=== PATIENT | male | born 1950 | race Caucasian/White ===

== ENCOUNTER 2021-02-12 19:35 | Inpatient (IN) | payer MEDICARE, OTHER, SELFPAY ==
[2021-02-12] VITALS (11 sets, daily range): BP systolic 116–147; BP diastolic 45–68; PULSE 86–97; RESP 17–30; TEMP 36.9; O2SAT 85–95
--- NOTE | ~2021-02-12 | US_ITS ---
EXAMINATION: US venous doppler UE DATE: 02/23/2021 19:46 INDICATION: Superficial venous thrombosis of the left cephalic vein TECHNIQUE: Kraft scale images with and without compression and Doppler images of the left upper extrem ity veins were obtained. COMPARISON: Ultrasound dated 02/16/2021. FINDINGS: The left internal jugular vein, subclavian vein, axillary vein, brachial veins, basilic vein, radial vein, and ulnar vein are patent. There is persistent thrombosis of the left cephalic vein. IMPRESSION: 1. Persistent thrombosis of the left cephalic vein. Reviewed, dictated and finalized at location A.
--- NOTE | ~2021-02-12 | CT_ITS ---
EXAMINATION: CTA chest PE protocol DATE: 02/12/2021 22:44 INDICATION: Shortness of breath and cough. Chest pain. TECHNIQUE: Computed tomography angiography (CTA) of the chest was performed with 100 mL Omnipaque-350 intravenous contrast timed to evaluate the pulmonary arteries. Coronal maximum intensity projection 3D-reconstructions were created by the technologist. Automated exposure control and iterative reconst ruction technique were employed. The dose-length product was 796.01 mGy-cm. COMPARISON: Chest single view 02/12/2021 FINDINGS: There are patchy groundglass opacities and great the feeding throughout the lungs bilateral ly. No pleural effusion. The heart size is normal. There are coronary artery calcifications. No peric ardial effusion. There is no pulmonary embolus. There is mild mediastinal and bilateral hilar lymphad enopathy, likely reactive. The liver demonstrates hypertrophy of left lateral segment and a nodular s urface contour, consistent with cirrhosis. There are changes of cholecystectomy. Partially visualized is at least mild splenomegaly, consistent with portal venous hypertension. There are bridging endpla te osteophytes at multiple levels in the spine, consistent with diffuse idiopathic skeletal hyperosto sis (DISH). IMPRESSION: 1. No pulmonary embolus. Sensitivity is moderately decreased peripherally by motion artifact. 2. Diffuse lung disease, consistent with pneumonia. 3. Mild mediastinal and bilateral hilar lymphadenopathy, likely reactive. 4. Cirrhosis of the liver with portal venous hypertension. Reviewed, dictated and finalized at location A. IMPRESSION: 1. No pulmonary embolus. Sensitivity is moderately decreased peripherally by mo tion artifact. 2. Diffuse lung disease, consistent with pneumonia. 3. Mild mediastinal and bilateral hilar lymphadenopathy, likely reactive. 4. Cirrhosis of the liver with portal venous hypertension.
--- NOTE | ~2021-02-12 | US_ITS ---
EXAMINATION: US venous doppler [facility] DATE: 02/16/2021 15:02 INDICATION: Shortness of breath TECHNIQUE: Kraft scale images without and with compression and Doppler images of the bilateral lower e xtremity veins were obtained. COMPARISON: None FINDINGS: The right common femoral vein, profunda femoral vein, femoral vein, popliteal vein, peroneal trunk, p osterior tibial veins, and greater saphenous vein are patent. There is superficial thrombosis of the gastrocnemius vein. The left common femoral vein, profunda femoral vein, femoral vein, popliteal vein, peroneal trunk, po sterior tibial veins, and greater saphenous vein are patent. There is superficial thrombosis of the g astrocnemius vein. IMPRESSION: 1. No evidence of deep venous thrombosis. Superficial thrombosis of the bilateral gastrocnemius veins . Reviewed, dictated and finalized at location A. IMPRESSION: 1. No evidence of deep venous thrombosis. Superficial thrombosis of the bilater al gastrocnemius veins.
--- NOTE | ~2021-02-12 | US_ITS ---
EXAMINATION:US venous doppler LE BI INDICATION:Lower extremity venous thrombosis. TECHNIQUE: Multiple grayscale, color flow and Doppler images of the right and left lower extremity de ep venous systems were obtained and reviewed. COMPARISON:Ultrasound dated 02/16/2021 FINDINGS: There is thrombosis of the right peroneal and bilateral gastrocnemius veins. The remainder of the lower extremity veins are patent. IMPRESSION: 1: Venous thrombosis of the right peroneal and bilateral gastrocnemius veins. Reviewed, dictated and finalized at location A.
--- NOTE | ~2021-02-12 | XR_ITS ---
EXAMINATION: XR chest 1V portable INDICATION: Shortness of breath, COVID pneumonia TECHNIQUE: Portable AP chest at 1555 hours COMPARISON: 02/12/2021 FINDINGS: Diffuse opacities persist throughout all lung zones with slight improvement in the upper jocelyne ng zones and slight worsening in the right midlung zone. There is no pleural effusion or pneumothorax . The heart size is normal. IMPRESSION: 1. Diffuse lung disease, consistent with pneumonia and/or pulmonary edema. Reviewed, dictated and finalized at location A.
--- NOTE | ~2021-02-12 | XR_ITS ---
EXAMINATION: XR chest 1V portable DATE: 02/19/2021 05:51 INDICATION: COVID-19 pneumonia. TECHNIQUE: A single frontal view of the chest was obtained. COMPARISON: Chest single view 02/16/2021, chest CT 02/12/2021 FINDINGS: There are patchy airspace opacities of the lungs bilaterally. No pleural effusion or pneumo thorax. The heart size is normal. IMPRESSION: 1. Worsened diffuse lung disease, consistent with COVID-19 pneumonia. Reviewed, dictated and finalized at location A.
--- NOTE | ~2021-02-12 | XR_ITS ---
EXAMINATION: XR chest 1V portable DATE: 02/12/2021 21:06 INDICATION: Generalized chest pain. COVID-19 pneumonia. TECHNIQUE: A single frontal view of the chest was obtained. COMPARISON: Chest 2 views 11/01/2012 FINDINGS: There are patchy airspace opacities in all lung zones bilaterally. No pleural effusion or p neumothorax. The heart size is normal. IMPRESSION: 1. Diffuse lung disease, consistent with COVID-19 pneumonia. Reviewed, dictated and finalized at location A.
--- NOTE | ~2021-02-12 | XR_ITS ---
EXAMINATION: XR chest 1V portable DATE: 02/20/2021 05:50 INDICATION: COVID-19 pneumonia. TECHNIQUE: A single frontal view of the chest was obtained. COMPARISON: Chest single view 02/19/2021 FINDINGS: There are patchy airspace opacities throughout the lungs bilaterally. No pleural effusion o r pneumothorax. The heart size is normal. IMPRESSION: 1. Stable diffuse lung disease, consistent with COVID-19 pneumonia. Reviewed, dictated and finalized at location A.
--- NOTE | ~2021-02-12 | US_ITS ---
EXAMINATION: US venous doppler E DATE: 02/16/2021 17:37 INDICATION: Left upper extremity swelling TECHNIQUE: Grayscale ultrasound images without and with compression and Doppler ultrasound images of the left upper extremity veins were obtained. COMPARISON: None. FINDINGS: There is thrombosis in the left cephalic vein. The left internal jugular vein, subclavian vein, axill francisca vein, brachial veins, basilic vein, radial vein, and ulnar vein are patent. IMPRESSION: 1. Thrombosis of the left cephalic vein. Reviewed, dictated and finalized at location A.
--- NOTE | 2021-02-12 19:57 | PC.NURSE ---
Pt placed on 2L portable oxygen at this time.
--- NOTE | 2021-02-12 19:58 | ECG_ITS ---
Measurements Intervals [place] Rate: 83 P: 17 TX: 251 QRS: -55 QRSD: 116 T: 79 QT: 384 QTc: 453 Interpretive Statements SINUS RHYTHM WITH FIRST DEGREE AV BLOCK LEFT ANTERIOR FASCICULAR BLOCK LEFT VENTRICULAR HYPERTROPHY AND ST-T CHANGE ABNORMAL ECG Electronically Signed On 02-12-2021 21:00:32 CDT by Hayder Shay D.O.
--- NOTE | 2021-02-12 19:59 | PC.NURSE ---
Portable O2 increased to 4L. Pt O2 saturation 93%.
--- NOTE | 2021-02-12 20:58 | ED.SOB ---
HPI - SOB/Dyspnea General Chief Complaint: Shortness of Breath/Dyspnea Stated Complaint: covid positive, sob Time Seen by Provider: 02/12/21 20:08 Source: patient Mode of arrival: ambulatory Limitations: no limitations History of Present Illness HPI Narrative: Patient is a 70-year-old male with history of hypertension, hyperlipidemia, coronary artery disease, A. fib presenting for evaluation of shortness of breath. Patient with symptoms consistent with Covid February 08, with positive test on February 10. Patient with worsening shortness of breath since that time. Patient states his daughter is a powertrain control systems engineer, checked his oxygen level at home and it was between 74 and 76%. Patient then presented to emergency department. Patient is reporting chest tightness. He is reporting dry cough. He is reporting fever and myalgias. Patient is vaccinated with the [employer] vaccine x2. Related Data Home Medications Medication Instructions Recorded Confirmed Unable to Obtain Home Medications 02/12/21 02/12/21 Allergies Allergy/AdvReac Type Severity Reaction Status Date / Time cortisone Allergy Mild Unknown Verified 02/12/21 20:01 Fahmbrp-MEX-FtU Reductase AdvReac Intermediate Other Verified 02/12/21 20:01 Inhibitor [Nbuhyoq-Drh-Fni Reductase Inhibitor] Review of Systems Review of Systems: CONSTITUTIONAL: Reports fever and chills EYES: Denies visual changes, redness, or discharge. ENT: Denies rhinorrhea, congestion, sore throat, or otalgia. CARDIOVASCULAR: Denies chest pain, palpitations, or edema. RESPIRATORY: Reports cough and shortness of breath GASTROINTESTINAL: Denies abdominal pain, nausea, vomiting, or diarrhea. GENITOURINARY: Denies dysuria or hematuria. SKIN: Denies rash or itching. MUSCULOSKELETAL: Denies back pain, joint pain, or myalgia. NEUROLOGIC: Denies headache, numbness, or weakness. [facility], [facility] Social History Social History (Updated 02/12/21 @ 21:04 by Sharlene Arriaga MD) Alcohol intake: never Substance use: never Living arrangements: with family Gender identity (if verbalized by the patient): Male Exam Narrative: GENERAL: Awake, alert, conversant, fatigued appearing HEAD: Normocephalic, atraumatic. EYES: PERRLA and EOMI. ENT: Nares clear, no rhinorrhea or epistaxis. Mucous membranes moist. NECK: Supple. CHEST: Hypoxic, tachypneic, coarse breath sounds bilaterally HEART: Regular rate, sinus rhythm ABDOMEN:Non distended, non tender EXTREMITIES: Normal range of motion. No edema. SKIN: Warm, dry, no rash. NEURO:No focal deficits. Alert and oriented x3 Course Vital Signs Vital signs: Vital Signs Temperature 36.9 C 02/12/21 19:49 Pulse Rate 86 02/12/21 19:49 Respiratory Rate 20 02/12/21 19:49 Blood Pressure 142/45 H 02/12/21 19:49 Pulse Oximetry 85 L 02/12/21 19:49 Temperature 36.9 C 02/12/21 19:49 Pulse Rate 95 02/12/21 23:03 Respiratory Rate 21 H 02/12/21 23:03 Blood Pressure 147/68 H 02/12/21 23:00 Pulse Oximetry 93 02/12/21 23:03 MDM - SOB/Dyspnea MDM Narrative Medical decision making narrative: Patient is a 70-year-old with a recent Covid diagnosis presenting for evaluation of shortness of breath. At the time of assessment, patient is ill-appearing, hypoxic, hypnic. No significant tachycardia patient was placed on 4 L via nasal cannula with improvement in oxygen saturation to 95%. This improved the pain of breathing. His laboratory results are notable for pancytopenia including thrombocytopenia which is stable from previous lab draw. Patient without signs of active bleeding, no petechiae. Patient with mild elevation in AST. 2 - troponin. CTA does not show evidence of PE. Patient was given Decadron per protocol. He does meet criteria for remdesivir. Patient admitted to hospitalist service. Differential Diagnosis Differential diagnosis: Likely congestive heart failure, community acquired pneumonia, asthma with exacerbation, p
[2021-02-12] MEDS: ASPIRIN 81 MG CHEWABLE TABLET 324 MG PO (21:23)
[2021-02-12 21:25] LABS: Eosinophils Percent Auto 0.8 % (0-4.4); Hematocrit 37.1 % (42.0-52.0); Hemoglobin 12.3 g/dL (14.0-18.0); Immature Granulocyte Absolute 0.01 K/mm3 (0.00-0.031); Immature Granulocyte Percent A 0.3 % (0-0.5); Immature Platelet Fraction Pct 10.6 % (0.9-11.2); Lymphocytes Absolute Auto 0.39 K/mm3 (0.9-3.2); Mean Corpuscular HGB Conc 33.2 g/dl (32-36); Mean Corpuscular Hemoglobin 29.4 pg (26-34); Mean Corpuscular Volume 88.8 fl (80-100); Monocytes Absolute Auto 0.2 K/mm3 (0.1-0.6); Monocytes Percent Auto 4.9 % (2.6-8.5); Neutrophils Absolute Auto 3.3 K/mm3 (1.3-6.7); Platelet Count Result 58 k/mm3 (150-375); Red Blood Count 4.18 M/mm3 (4.6-6.20); Red Cell Distribution Width 15.1 % (11.5-14.5); White Blood Count 3.9 K/mm3 (4.5-10.0)
[2021-02-12 21:34] LABS: Alanine Aminotransferase 47 U/L (4-50); Albumin Level 3.8 g/dL (3.5-5.1); Alkaline Phosphatase 181 U/L (38-126); Anion Gap 9 mmol/L (8-16); Aspartate Amino Transferase 72 U/L (17-59); Bilirubin,Total 1.3 mg/dL (0.2-1.3); Blood Urea Nitrogen 24 mg/dL (9-20); Calcium 8.8 mg/dL (8.4-10.2); Carbon Dioxide 25 mmol/L (22-30); Chloride 103 mmol/L (98-107); Estimated CRCL calculation 52 ml/min; Estimated Glomerular Filt Rate 50; Glucose 200 mg/dL (65-110); Sodium 137 mmol/L (137-145)
[2021-02-12 21:35] LABS: INR 1.1; Prothrombin Time 14.4 Seconds (11.1-14.7)
[2021-02-12 21:36] LABS: Partial Thromboplastin Time 35.5 SECONDS (22.3-36.8)
[2021-02-12 21:45] LABS: NT Pro B Type Natriuretic Pept 229 pg/mL (5-100); Troponin I < 0.012 ng/mL (0.000-0.034)
--- NOTE | 2021-02-12 22:45 | PM.IMHP ---
H&P: HPI History of Present Illness Date/Time: 02/12/21 22:45 Chief Complaint: Shortness of breath Narrative: This is a 70-year-old male with past medical history significant for dyslipidemia, patient was vaccinated against COVID earlier in the year, he came in today due to worsening shortness of breath, productive cough of copious amount of yellow brownish sputum cottage cheese appearance , nose drainage ,body aches and pains ,generalized malaise, poor appetite ,chills ,fevers, sweats ,patient tested positive for COVID-19 3 days ago this has been going on from 4-5 days ago. Upon arrival to emergency room patient was found to have low saturations in the 80s and requires supplemental oxygen by nasal cannula. Preliminary workup was significant for chest x-ray with diffuse COVID-19 pneumonia consistent infiltrates. Review of Systems Review of Systems: Body aches and pains, shortness of breath, cough ,sputum production, poor appetite, generalized malaise. Constitutional: Constitutional: Reports chills, Reports fatigue, Reports fever(s), Reports lethargy, Reports malaise, Reports poor appetite and Reports weakness Eyes: Eyes: Reports no additional eye complaints and Denies change in vision ENT: Denies dysphagia, Reports dizziness, Reports nasal congestion, Reports nasal discharge and Denies nasal obstruction Cardiovascular: Cardiovascular: Denies chest pain, Denies radiating jaw, neck or arm pain and Denies palpitations Respiratory: Respiratory: Reports change in phlegm color, Reports chest congestion, Reports cough, Reports excessive phlegm production and Reports dyspnea Gastrointestinal: Gastrointestinal: Denies abdominal pain, Denies dyspepsia, Denies nausea and Denies vomiting Genitourinary: Genitourinary: Reports no additional male genitourinary complaints Musculoskeletal: Musculoskeletal: Reports myalgias Integumentary/Breasts: Skin/Breast: Reports system reviewed and no additional complaints, except as docu Neurologic: Reports system reviewed and no additional complaints, except as documented Psychiatric: Psychiatric: Reports no additional psychiatric complaints Endocrine: Endocrine: Reports no additional endocrine complaints Hematologic/Lymphatic: Hematologic/Lymphatic: Reports no additional hematologic/lymphatic complaints Allergic/Immunologic: Allergic/Immunologic: Reports no additional allergic/immunologic complaints COUNT INCLUDES THE [facility] Social History Social History (Updated 02/12/21 @ 21:04 by Sharlene Arriaga MD) Smoking status: Never smoker Alcohol intake: never Substance use: never Living arrangements: with family Gender identity (if verbalized by the patient): Male Spiritual care concerns: No Meds Home Medications and Allergies Home Medications Medication Instructions Recorded Confirmed Type Unable to Obtain Home Medications 02/12/21 02/12/21 History Allergies Allergy/AdvReac Type Severity Reaction Status Date / Time cortisone Allergy Mild Unknown Verified 02/12/21 20:01 Ndxgtki-YUG-JbQ Reductase AdvReac Intermediate Other Verified 02/12/21 20:01 Inhibitor [Ctihevi-Ixe-Ann Reductase Inhibitor] Vital Signs Vital Signs - 24 hr 02/12/21 19:49 02/12/21 21:17 Temperature 98.5 F Pulse Rate 86 87 Respiratory Rate 20 24 H Blood Pressure 142/45 H 137/63 Pulse Oximetry 85 L 95 Exam Narrative: Patient is laying in gurney Const: General: cooperative, no acute distress, well developed, alert, awake, Physically active and ill appearing acutely Nutritional Appearance: average body habitus Orientation/consciousness: patient oriented x3 HENMT: Head: normal to inspection, normocephalic and atraumatic Ears: hearing grossly normal bilaterally General nose exam: Normal external nose present Face and sinus: normal facial exam Mouth: Yes Normal oral and palatal mucosa present Eyes: General: appearance normal, both eyes and all related structures Alignment and Position: alignme
[2021-02-12 23:33] LABS: Troponin I < 0.012 ng/mL (0.000-0.034)
[2021-02-13] VITALS (14 sets, daily range): BP systolic 104–147; BP diastolic 51–74; PULSE 74–99; RESP 12–24; TEMP 36.1–36.7; O2SAT 81–95
[2021-02-13] MEDS: REMDESIVIR 200 MG/NS 250 ML 200 MG/250 ML BAG 250 MG IVPB (00:21)
--- NOTE | 2021-02-13 00:59 | PC.NURSE ---
Pt sent to floor with Remdesivir running
--- NOTE | 2021-02-13 01:16 | ADMGEN ---
This patient, Bhanu Plaza, was admitted to [facility] Room 303-01. Patient/family oriented to hospital policies and general routines including ID bracelet, bed and alarms, visiting hours, pain management, procedures, bathroom and other care routines, personal items, smoking policy, room service/diet, and visiting hours. Information on how to activate the Rapid Response Team has been discussed. Patient/Family are encouraged to report perceived risks to care and to ask questions if they do not understand what they are told or what they should do.
[2021-02-13 04:48] LABS: INR 1.2; Prothrombin Time 15.3 Seconds (11.1-14.7)
--- NOTE | 2021-02-13 04:48 | PC.NURSE ---
Unable to obtain home med list. Patient gets medication from [place]. States daughter will have office fax over current medication in the morning. Fax number given to patient.
[2021-02-13 05:33] LABS: Troponin I < 0.012 ng/mL (0.000-0.034)
[2021-02-13 05:35] LABS: Alanine Aminotransferase 46 U/L (4-50); Estimated CRCL calculation 56 ml/min; Estimated Glomerular Filt Rate 54
[2021-02-13 07:43] LABS: INR 1.3; Prothrombin Time 15.7 Seconds (11.1-14.7)
[2021-02-13 08:01] LABS: Alanine Aminotransferase 43 U/L (4-50); Estimated CRCL calculation 61 ml/min; Estimated Glomerular Filt Rate 60
[2021-02-13 09:17] LABS: Glucose Point of Care 265 mg/dl (65-105)
[2021-02-13] MEDS: ALBUTEROL SULFATE (*SP) INHALER 2 PUFF INHALATION ×3 (11:10→20:50)
[2021-02-13] MEDS: METOPROLOL TARTRATE 50 MG TAB 100 MG PO ×2 (12:10→21:21)
[2021-02-13] MEDS: PANTOPRAZOLE 40 MG TABLET PO ×2 (12:10→18:02)
[2021-02-13] MEDS: amLODIPine BESYLATE 5 MG TABLET 10 MG PO (12:10)
[2021-02-13] MEDS: ASPIRIN 81 MG ENTERIC TABLET PO (12:11)
[2021-02-13] MEDS: GABAPENTIN 300 MG CAPSULE 600 MG PO ×2 (12:11→18:02)
[2021-02-13] MEDS: FERROUS SULFATE 324 MG TABLET PO (12:11)
[2021-02-13] MEDS: ISOSORBIDE MONONITRATE 60 MG TAB.ER.24H 120 MG PO (12:11)
[2021-02-13] MEDS: lisinopriL 20 MG TABLET 40 MG PO (12:11)
[2021-02-13] MEDS: metFORMIN HCL 500 MG TABLET 1000 MG PO ×2 (12:12→18:02)
[2021-02-13] MEDS: DULoxetine HCL 30 MG CAPSULE.DR PO (12:12)
[2021-02-13] MEDS: TUBING, BLOOD PLUM PUMP TUBING 1 EACH XX (12:13)
[2021-02-13] MEDS: INSULIN ASPART (*BKC) 100 UNITS/ML SUB-Q ×2 (12:13→18:03)
[2021-02-13 12:14] LABS: Glucose Point of Care 246 mg/dl (65-105)
[2021-02-13] MEDS: SODIUM CHLORIDE 0.9% IV 250 ML 30 ML IV CONT (12:25)
[2021-02-13 16:59] LABS: Glucose Point of Care 313 mg/dl (65-105)
--- NOTE | 2021-02-13 17:05 | PM.IMPN ---
Progress Note: A&P Assessment and Plan (1) Pneumonia due to 2019 novel coronavirus: Code(s): U07.1 - COVID-19; J12.82 - Pneumonia due to coronavirus disease 2019 Status: Acute Assessment and Plan: Continue remdesivir and dexamethasone -Unable to do lovenox due to decreased platelets -Plasma given 02/13/21 -Pt on 4L of o2, will continue o2 to keep sats >90 -continue with abx started by previous provider (2) Diabetes: Code(s): E11.9 - Type 2 diabetes mellitus without complications Status: Acute Assessment and Plan: Last glucose 313 -will do scheduled meal time insulin with SSI and start lantus -Pt takes 60u of quick acting insulin with meals as well as 40u before bed (??) per records -pt educated to not take quick acting insulin before bed and to verify his dosing with his pcp (3) Acute respiratory failure with hypoxia: Code(s): J96.01 - Acute respiratory failure with hypoxia Status: Acute Assessment and Plan: due to above -continue o2 to keep sats >90 (4) Coronary artery disease: Code(s): I25.10 - Atherosclerotic heart disease of [place] coronary artery without angina pectoris Status: Acute Assessment and Plan: No CP today -continue aspirin, lisinopril, and metoprolol (5) Hypertension: Code(s): I10 - Essential (primary) hypertension Status: Acute Assessment and Plan: Last bp 123/66 -continue amlodipine, metoprolol, imdur, and lisinopril (6) Sleep apnea: Code(s): G47.30 - Sleep apnea, unspecified Status: Acute Assessment and Plan: continue cpap (7) Pancytopenia: Code(s): D61.818 - Other pancytopenia Status: Acute Assessment and Plan: Acute on chronic, likely due to viral infx on top of cirrhosis (8) Cirrhosis: Code(s): K74.60 - Unspecified cirrhosis of liver Status: Acute Assessment and Plan: Chronic Time Spent With Patient Time with patient: 25 - 35 minutes Subjective Date/time seen: 02/13/21 17:05 Interval history: Pt is a 70-year-old male here for COVID. Patient was seen today and states his breathing is better than when he came in although he still has shortness of breath with movement. He continues to cough with phlegm production. he denies chest pain, nausea, vomiting, chills, or leg swelling. He has a decreased appetite. He states he has a hx of cirrhosis that is chronic. I reviewed his insulin dose with him and advised him to not take quick acting insulin before bed. Review of Systems Review of Systems: All systems reviewed & are unremarkable except as noted in HPI and below Exam Narrative: General: Well developed well nourished patient in NAD HEENT: normocephalic Neck: supple Neuro: Alert and oriented x4 CV:RRR Resp:Crackles to both lungs but no wheezing or ronchi. no conversational dyspnea. Abd: Soft, non distended. No pain to palpation. Positive bowel sounds Extremities: No swelling, erythema, or pain to palpation. Objective Data Vital Signs Vital Signs: Vital Signs - 24 hr 02/12/21 19:49 02/12/21 21:16 02/12/21 21:17 Temperature 98.5 F Pulse Rate 86 89 87 Respiratory Rate 20 17 24 H Blood Pressure 142/45 H 137/63 Pulse Oximetry 85 L 93 95 02/12/21 21:30 02/12/21 21:45 02/12/21 21:46 Temperature Pulse Rate 91 97 Respiratory Rate 27 H 19 Blood Pressure 129/61 116/56 L 116/56 L Pulse Oximetry 92 94 94 02/12/21 22:26 02/12/21 22:30 02/12/21 22:31 Temperature Pulse Rate 86 86 91 Respiratory Rate 24 H 19 24 H Blood Pressure 134/56 L Pulse Oximetry 94 94 93 02/12/21 23:00 02/12/21 23:03 02/13/21 00:22 Temperature Pulse Rate 91 95 86 Respiratory Rate 22 H 21 H 24 H Blood Pressure 147/68 H 147/68 H Pulse Oximetry 92 93 93 02/13/21 05:21 02/13/21 09:55 02/13/21 11:11 Temperature 97.1 F L Pulse Rate 80 88 Respiratory Rate 18 20 Bl
[2021-02-13] MEDS: INSULIN ASPART (*BKC) 100 UNITS/ML 10 UNITS SUB-Q (18:03)
[2021-02-13] MEDS: ACETAMINOPHEN 325 MG TABLET 650 MG PO (21:20)
[2021-02-13] MEDS: INSULIN GLARGINE (*BKC) 100 UNITS/ML 15 UNITS SUB-Q (21:21)
[2021-02-13] MEDS: REMDESIVIR 100 MG/NS 250 ML 100 MG/250 ML BAG 250 MG IVPB (21:35)
[2021-02-14] VITALS (15 sets, daily range): BP systolic 104–127; BP diastolic 51–67; PULSE 62–89; RESP 14–19; TEMP 36.1–36.9; O2SAT 84–98
[2021-02-14 07:08] LABS: Hemoglobin 12.2 g/dL (14.0-18.0); Immature Platelet Fraction Pct 12.2 % (0.9-11.2); Mean Corpuscular HGB Conc 33.9 g/dl (32-36); Mean Corpuscular Hemoglobin 29.2 pg (26-34); Mean Corpuscular Volume 86.1 fl (80-100); Mean Platelet Volume 12.6 fl (7.4-10.4); Platelet Count Result 97 k/mm3 (150-375); Red Blood Count 4.18 M/mm3 (4.6-6.20); Red Cell Distribution Width 14.6 % (11.5-14.5); White Blood Count 6.3 K/mm3 (4.5-10.0)
[2021-02-14 07:22] LABS: Alanine Aminotransferase 41 U/L (4-50); Albumin Level 3.8 g/dL (3.5-5.1); Alkaline Phosphatase 165 U/L (38-126); Anion Gap 15 mmol/L (8-16); Aspartate Amino Transferase 55 U/L (17-59); Bilirubin,Total 0.9 mg/dL (0.2-1.3); Blood Urea Nitrogen 38 mg/dL (9-20); CRP 6.6 mg/dL (<1.0); Calcium 8.9 mg/dL (8.4-10.2); Carbon Dioxide 19 mmol/L (22-30); Chloride 102 mmol/L (98-107); Estimated CRCL calculation 66 ml/min; Estimated Glomerular Filt Rate > 60; Glucose 223 mg/dL (65-110); Magnesium 1.7 mg/dL (1.6-2.3); Potassium 4.4 mmol/L (3.4-5.0); Sodium 136 mmol/L (137-145)
[2021-02-14 07:33] LABS: Glucose Point of Care 267 mg/dl (65-105)
[2021-02-14 07:59] LABS: INR 1.3; Prothrombin Time 16.4 Seconds (11.1-14.7)
[2021-02-14] MEDS: ALBUTEROL SULFATE (*SP) INHALER 2 PUFF INHALATION ×3 (08:11→15:38)
[2021-02-14 08:32] LABS: Glucose Point of Care 254 mg/dl (65-105)
[2021-02-14] MEDS: METOPROLOL TARTRATE 50 MG TAB 100 MG PO ×2 (09:06→20:55)
[2021-02-14] MEDS: GABAPENTIN 300 MG CAPSULE 600 MG PO ×3 (09:06→17:33)
[2021-02-14] MEDS: lisinopriL 20 MG TABLET 40 MG PO (09:06)
[2021-02-14] MEDS: FERROUS SULFATE 324 MG TABLET PO (09:07)
[2021-02-14] MEDS: amLODIPine BESYLATE 5 MG TABLET 10 MG PO (09:07)
[2021-02-14] MEDS: ISOSORBIDE MONONITRATE 60 MG TAB.ER.24H 120 MG PO (09:07)
[2021-02-14] MEDS: DULoxetine HCL 30 MG CAPSULE.DR PO (09:07)
[2021-02-14] MEDS: ASPIRIN 81 MG ENTERIC TABLET PO (09:07)
[2021-02-14] MEDS: metFORMIN HCL 500 MG TABLET 1000 MG PO ×2 (09:08→17:33)
[2021-02-14] MEDS: PANTOPRAZOLE 40 MG TABLET PO ×2 (09:08→17:37)
[2021-02-14] MEDS: INSULIN ASPART (*BKC) 100 UNITS/ML SUB-Q ×3 (09:09→17:34)
[2021-02-14] MEDS: INSULIN ASPART (*BKC) 100 UNITS/ML 10 UNITS SUB-Q ×2 (09:09→12:29)
--- NOTE | 2021-02-14 09:28 | PCOTNOTE ---
Attempted OT eval. Patient with nursing and eating breakfast. Will continue to attempt.
[2021-02-14] MEDS: ACETAMINOPHEN 325 MG TABLET 650 MG PO (11:40)
--- NOTE | 2021-02-14 12:10 | PCPTNOTE ---
On 02/14/21, the student, Edwin Andrade, provided care and completed [facility] documentation on this patient. I have reviewed the student's documentation and agree with the findings.
[2021-02-14 12:14] LABS: Glucose Point of Care 297 mg/dl (65-105)
--- NOTE | 2021-02-14 13:40 | PM.IMPN ---
Progress Note: A&P Assessment and Plan (1) Pneumonia due to 2019 novel coronavirus: Code(s): U07.1 - COVID-19; J12.82 - Pneumonia due to coronavirus disease 2019 Status: Acute Assessment and Plan: Continue remdesivir and dexamethasone -Unable to do lovenox due to decreased platelets, continue SCDs -add incentive spirometer -Plasma given 02/13/21 -Pt on 4L of o2, will continue o2 to keep sats >90. He required 10u overnight during a coughing spell but has improved -continue with abx started by previous provider -consider baricinib if pt requires any further o2 but he appears stable at this time (2) Diabetes: Code(s): E11.9 - Type 2 diabetes mellitus without complications Status: Acute Assessment and Plan: Last glucose 297 -Continue scheduled meal time insulin (will increase) with SSI and and lantus -Pt takes 60u of quick acting insulin with meals as well as 40u before bed (??) per records -pt educated to not take quick acting insulin before bed and to verify his dosing with his pcp (3) Acute respiratory failure with hypoxia: Code(s): J96.01 - Acute respiratory failure with hypoxia Status: Acute Assessment and Plan: due to above -continue o2 to keep sats >90 (4) Coronary artery disease: Code(s): I25.10 - Atherosclerotic heart disease of [place] coronary artery without angina pectoris Status: Acute Assessment and Plan: No CP today -continue aspirin, lisinopril, and metoprolol (5) Hypertension: Code(s): I10 - Essential (primary) hypertension Status: Acute Assessment and Plan: Last bp 105/59 -continue amlodipine, metoprolol, imdur, and lisinopril (6) Sleep apnea: Code(s): G47.30 - Sleep apnea, unspecified Status: Acute Assessment and Plan: continue cpap (7) Pancytopenia: Code(s): D61.818 - Other pancytopenia Status: Acute Assessment and Plan: Acute on chronic, likely due to viral infx on top of cirrhosis (8) Cirrhosis: Code(s): K74.60 - Unspecified cirrhosis of liver Status: Acute Assessment and Plan: Chronic Subjective Date/time seen: 02/14/21 13:40 Interval history: Pt is a 70-year-old male here for COVID. Patient was seen today and states his breathing is better than when he came in although he still has shortness of breath with movement and coughing. He continues to cough with phlegm production. he denies chest pain, nausea, vomiting, chills, or leg swelling. He has a decreased appetite but ate most of his lunch today. He states he has a hx of cirrhosis that is chronic. I reviewed his insulin dose with him and advised him to not take quick acting insulin before bed. Exam Narrative: General: Well developed well nourished patient in NAD HEENT: normocephalic Neck: supple Neuro: Alert and oriented x4 CV:RRR Resp:Crackles to both lungs with a very slight wheeze. no conversational dyspnea. Abd: Soft, non distended. No pain to palpation. Positive bowel sounds Extremities: No swelling, erythema, or pain to palpation. Objective Data Vital Signs Vital Signs: Vital Signs - 24 hr 02/13/21 14:40 02/13/21 15:16 02/13/21 16:14 Temperature 97.7 F 97.9 F 98.0 F Pulse Rate 82 99 87 Respiratory Rate 16 14 12 Blood Pressure 122/68 122/65 123/66 Pulse Oximetry 91 91 90 Pulse Oximetry [At Rest After Therapy Session] 02/13/21 20:55 02/13/21 21:17 02/13/21 22:00 Temperature 97.0 F L Pulse Rate 92 85 92 Respiratory Rate 22 H 22 H 20 Blood Pressure 104/74 Pulse Oximetry 81 L 90 88 L Pulse Oximetry [At Rest After Therapy Session] 02/14/21 03:30 02/14/21 06:42 02/14/21 08:03 Temperature 97 F L 97.6 F Pulse Rate 72 72 Respiratory Rate 18 14 Blood Pressure 122/56 L 127/67 Pulse Oximetry 93 98 91 Pulse Oximetry [At Rest After Therapy Session] 02/14/21 08:14 02/14/21 09:14 02/14/21 1
[2021-02-14 17:10] LABS: Glucose Point of Care 283 mg/dl (65-105)
[2021-02-14] MEDS: INSULIN ASPART (*BKC) 100 UNITS/ML 14 UNITS SUB-Q (17:34)
[2021-02-14] MEDS: INSULIN GLARGINE (*BKC) 100 UNITS/ML 15 UNITS SUB-Q (20:53)
[2021-02-14] MEDS: REMDESIVIR 100 MG/NS 250 ML 100 MG/250 ML BAG 250 MG IVPB (20:56)
[2021-02-15] VITALS (10 sets, daily range): BP systolic 110–144; BP diastolic 57–69; PULSE 52–72; RESP 12–20; TEMP 36–36.6; O2SAT 90–94
[2021-02-15 01:29] LABS: Glucose Point of Care 239 mg/dl (65-105)
[2021-02-15 06:36] LABS: Hematocrit 35.7 % (42.0-52.0); Hemoglobin 12.3 g/dL (14.0-18.0); Mean Corpuscular HGB Conc 34.5 g/dl (32-36); Mean Corpuscular Hemoglobin 29.1 pg (26-34); Mean Corpuscular Volume 84.6 fl (80-100); Mean Platelet Volume 12.3 fl (7.4-10.4); Platelet Count Result 94 k/mm3 (150-375); Red Blood Count 4.22 M/mm3 (4.6-6.20); Red Cell Distribution Width 14.8 % (11.5-14.5)
[2021-02-15 06:46] LABS: INR 1.4; Prothrombin Time 16.8 Seconds (11.1-14.7)
[2021-02-15 06:51] LABS: Alanine Aminotransferase 39 U/L (4-50); Albumin Level 3.5 g/dL (3.5-5.1); Alkaline Phosphatase 168 U/L (38-126); Anion Gap 12 mmol/L (8-16); Aspartate Amino Transferase 50 U/L (17-59); Bilirubin,Total 0.8 mg/dL (0.2-1.3); Blood Urea Nitrogen 43 mg/dL (9-20); CRP 3.9 mg/dL (<1.0); Calcium 8.8 mg/dL (8.4-10.2); Carbon Dioxide 20 mmol/L (22-30); Chloride 104 mmol/L (98-107); Estimated CRCL calculation 71 ml/min; Estimated Glomerular Filt Rate > 60; Glucose 184 mg/dL (65-110); Potassium 4.6 mmol/L (3.4-5.0); Sodium 136 mmol/L (137-145)
[2021-02-15 07:41] LABS: Glucose Point of Care 271 mg/dl (65-105)
[2021-02-15] MEDS: ALBUTEROL SULFATE (*SP) INHALER 2 PUFF INHALATION ×4 (08:36→20:19)
[2021-02-15] MEDS: GABAPENTIN 300 MG CAPSULE 600 MG PO ×3 (10:01→18:05)
[2021-02-15] MEDS: ISOSORBIDE MONONITRATE 60 MG TAB.ER.24H 120 MG PO (10:02)
[2021-02-15] MEDS: DULoxetine HCL 30 MG CAPSULE.DR PO (10:02)
[2021-02-15] MEDS: METOPROLOL TARTRATE 50 MG TAB 100 MG PO ×2 (10:02→22:35)
[2021-02-15] MEDS: metFORMIN HCL 500 MG TABLET 1000 MG PO ×2 (10:02→18:05)
[2021-02-15] MEDS: lisinopriL 20 MG TABLET 40 MG PO (10:02)
[2021-02-15] MEDS: ASPIRIN 81 MG ENTERIC TABLET PO (10:02)
[2021-02-15] MEDS: INSULIN ASPART (*BKC) 100 UNITS/ML 14 UNITS SUB-Q ×2 (10:03→13:03)
[2021-02-15] MEDS: INSULIN ASPART (*BKC) 100 UNITS/ML SUB-Q ×2 (10:03→13:03)
[2021-02-15] MEDS: amLODIPine BESYLATE 5 MG TABLET 10 MG PO (10:03)
[2021-02-15] MEDS: PANTOPRAZOLE 40 MG TABLET PO ×2 (10:03→18:05)
[2021-02-15] MEDS: FERROUS SULFATE 324 MG TABLET PO (10:03)
[2021-02-15 11:47] LABS: Glucose Point of Care 288 mg/dl (65-105)
--- NOTE | 2021-02-15 15:47 | PM.IMPN ---
Progress Note: A&P Assessment and Plan (1) Pneumonia due to 2019 novel coronavirus: Code(s): U07.1 - COVID-19; J12.82 - Pneumonia due to coronavirus disease 2019 Status: Acute Assessment and Plan: Continue remdesivir and dexamethasone -Unable to do lovenox due to decreased platelets, continue SCDs and ambulation -continue ncentive spirometer -Plasma given 02/13/21 -Pt on 4L of o2, will continue o2 to keep sats >90. He required 8L this morning during a coughing spell but has improved quickly -continue with abx started by previous provider -consider baricinib if pt requires any further o2 but he appears stable at this time (2) Diabetes: Code(s): E11.9 - Type 2 diabetes mellitus without complications Status: Acute Assessment and Plan: Last glucose 288 -Continue scheduled meal time insulin with SSI and and lantus -Pt takes 60u of quick acting insulin with meals as well as 40u before bed (??) per records -pt educated to not take quick acting insulin before bed and to verify his dosing with his pcp (3) Acute respiratory failure with hypoxia: Code(s): J96.01 - Acute respiratory failure with hypoxia Status: Acute Assessment and Plan: due to above -continue o2 to keep sats >90 (4) Coronary artery disease: Code(s): I25.10 - Atherosclerotic heart disease of [place] coronary artery without angina pectoris Status: Acute Assessment and Plan: No CP today -continue aspirin, lisinopril, and metoprolol (5) Hypertension: Code(s): I10 - Essential (primary) hypertension Status: Acute Assessment and Plan: Last bp 144/69 -continue amlodipine, metoprolol, imdur, and lisinopril (6) Sleep apnea: Code(s): G47.30 - Sleep apnea, unspecified Status: Acute Assessment and Plan: continue cpap (7) Pancytopenia: Code(s): D61.818 - Other pancytopenia Status: Acute Assessment and Plan: Acute on chronic, likely due to viral infx on top of cirrhosis (8) Cirrhosis: Code(s): K74.60 - Unspecified cirrhosis of liver Status: Acute Assessment and Plan: Chronic Subjective Date/time seen: 02/15/21 15:47 Interval history: Pt is a 70-year-old male here for COVID. patient was seen today and states he is feeling little better today. He thinks he does better every day although he does not feel great. He said he is coughing less and has a little bit more energy. He still has a decreased appetite. He denies nausea, vomiting, fevers, chills, diarrhea, or leg swelling. He says his shortness of breath is mostly with activity. He has been getting up to the commode Exam Narrative: General: Well developed well nourished patient in NAD HEENT: normocephalic Neck: supple Neuro: Alert and oriented x4 CV:RRR Resp:Crackles to both lungs with a very slight wheeze. no conversational dyspnea. Abd: Soft, non distended. No pain to palpation. Positive bowel sounds Extremities: No swelling, erythema, or pain to palpation. Objective Data Vital Signs Vital Signs: Vital Signs - 24 hr 02/14/21 17:13 02/14/21 20:00 02/14/21 20:36 Temperature 97.8 F 97.6 F Pulse Rate 72 89 89 Respiratory Rate 19 16 16 Blood Pressure 104/53 L 118/51 L Pulse Oximetry 90 90 02/14/21 21:00 02/14/21 23:10 02/15/21 00:00 Temperature 97.4 F L Pulse Rate 71 68 Respiratory Rate 20 Blood Pressure 110/58 L Pulse Oximetry 90 93 02/15/21 04:00 02/15/21 07:44 02/15/21 08:37 Temperature 97.7 F 97.7 F Pulse Rate 68 68 Respiratory Rate 18 14 Blood Pressure 130/58 L 127/60 Pulse Oximetry 92 91 90 02/15/21 10:00 02/15/21 14:36 Temperature 97.9 F Pulse Rate 67 Respiratory Rate 14 Blood Pressure 144/69 H Pulse Oximetry 90 94 Intake/Output Intake/Output: Intake & Output 02/12/21 02/13/21 02/14/21 02/15/21 23:59 23:59 23:59 23:59 Intake Total 4133 21
[2021-02-15 16:33] LABS: Glucose Point of Care 150 mg/dl (65-105)
[2021-02-15] MEDS: INSULIN ASPART (*BKC) 100 UNITS/ML 8 UNITS SUB-Q (18:05)
[2021-02-15 20:14] LABS: Glucose Point of Care 183 mg/dl (65-105)
[2021-02-15] MEDS: INSULIN GLARGINE (*BKC) 100 UNITS/ML 15 UNITS SUB-Q (22:35)
[2021-02-15] MEDS: REMDESIVIR 100 MG/NS 250 ML 100 MG/250 ML BAG 250 MG IVPB (22:35)
[2021-02-16] VITALS (10 sets, daily range): BP systolic 112–151; BP diastolic 50–59; PULSE 53–71; RESP 16–20; TEMP 35.6–36.4; O2SAT 90–96
[2021-02-16 06:38] LABS: Hematocrit 37.1 % (42.0-52.0); Hemoglobin 12.6 g/dL (14.0-18.0); Mean Corpuscular Hemoglobin 29.4 pg (26-34); Mean Corpuscular Volume 86.7 fl (80-100); Mean Platelet Volume 12.6 fl (7.4-10.4); Platelet Count Result 94 k/mm3 (150-375); Red Blood Count 4.28 M/mm3 (4.6-6.20); Red Cell Distribution Width 15.1 % (11.5-14.5)
[2021-02-16 06:43] LABS: INR 1.6; Prothrombin Time 18.4 Seconds (11.1-14.7)
[2021-02-16 06:46] LABS: Alanine Aminotransferase 42 U/L (4-50); Albumin Level 3.4 g/dL (3.5-5.1); Alkaline Phosphatase 177 U/L (38-126); Anion Gap 11 mmol/L (8-16); Aspartate Amino Transferase 51 U/L (17-59); Bilirubin,Total 0.9 mg/dL (0.2-1.3); Blood Urea Nitrogen 38 mg/dL (9-20); CRP 2.4 mg/dL (<1.0); Calcium 8.6 mg/dL (8.4-10.2); Carbon Dioxide 22 mmol/L (22-30); Chloride 103 mmol/L (98-107); Estimated CRCL calculation 71 ml/min; Estimated Glomerular Filt Rate > 60; Glucose 173 mg/dL (65-110); Potassium 4.6 mmol/L (3.4-5.0); Sodium 136 mmol/L (137-145)
[2021-02-16 08:32] LABS: D Dimer > 20.00 ug/mL (<0.48)
[2021-02-16 08:35] LABS: Glucose Point of Care 181 mg/dl (65-105)
[2021-02-16] MEDS: ALBUTEROL SULFATE (*SP) INHALER 2 PUFF INHALATION ×4 (08:56→20:15)
[2021-02-16] MEDS: lisinopriL 20 MG TABLET 40 MG PO (09:12)
[2021-02-16] MEDS: metFORMIN HCL 500 MG TABLET 1000 MG PO ×2 (09:12→17:54)
[2021-02-16] MEDS: GABAPENTIN 300 MG CAPSULE 600 MG PO ×3 (09:12→17:54)
[2021-02-16] MEDS: amLODIPine BESYLATE 5 MG TABLET 10 MG PO (09:12)
[2021-02-16] MEDS: PANTOPRAZOLE 40 MG TABLET PO ×2 (09:13→17:54)
[2021-02-16] MEDS: FERROUS SULFATE 324 MG TABLET PO (09:13)
[2021-02-16] MEDS: ISOSORBIDE MONONITRATE 60 MG TAB.ER.24H 120 MG PO (09:13)
[2021-02-16] MEDS: DULoxetine HCL 30 MG CAPSULE.DR PO (09:13)
[2021-02-16] MEDS: ASPIRIN 81 MG ENTERIC TABLET PO (09:13)
[2021-02-16] MEDS: METOPROLOL TARTRATE 50 MG TAB 100 MG PO ×2 (09:13→21:06)
[2021-02-16] MEDS: INSULIN ASPART (*BKC) 100 UNITS/ML 14 UNITS SUB-Q ×3 (09:14→17:54)
[2021-02-16 12:13] LABS: Glucose Point of Care 227 mg/dl (65-105)
[2021-02-16] MEDS: INSULIN ASPART (*BKC) 100 UNITS/ML SUB-Q (12:42)
--- NOTE | 2021-02-16 15:44 | PM.IMPN ---
Progress Note: A&P Assessment and Plan (1) Pneumonia due to 2019 novel coronavirus: Code(s): U07.1 - COVID-19; J12.82 - Pneumonia due to coronavirus disease 2019 Status: Acute Assessment and Plan: Continue remdesivir and dexamethasone - Lovenox has been started with close observation due to significant elevation in D-dimer -continue incentive spirometer -Plasma given 02/13/21 -Pt on 4L of o2, will continue o2 to keep sats >90. He required 8L during a coughing spell but has improved quickly -continue with abx started by previous provider -consider baricinib if pt requires any further o2 but he appears stable at this time (2) Diabetes: Code(s): E11.9 - Type 2 diabetes mellitus without complications Status: Acute Assessment and Plan: Last glucose 277 -Continue scheduled meal time insulin with SSI and and lantus -Pt takes 60u of quick acting insulin with meals as well as 40u before bed (??) per records -pt educated to not take quick acting insulin before bed and to verify his dosing with his pcp (3) Acute respiratory failure with hypoxia: Code(s): J96.01 - Acute respiratory failure with hypoxia Status: Acute Assessment and Plan: due to above -continue o2 to keep sats >90 (4) Coronary artery disease: Code(s): I25.10 - Atherosclerotic heart disease of [place] coronary artery without angina pectoris Status: Acute Assessment and Plan: No CP today -continue aspirin, lisinopril, and metoprolol (5) Hypertension: Code(s): I10 - Essential (primary) hypertension Status: Acute Assessment and Plan: Last bp 125/59 -continue amlodipine, metoprolol, imdur, and lisinopril (6) Sleep apnea: Code(s): G47.30 - Sleep apnea, unspecified Status: Acute Assessment and Plan: continue cpap (7) Pancytopenia: Code(s): D61.818 - Other pancytopenia Status: Acute Assessment and Plan: Acute on chronic, likely due to viral infx on top of cirrhosis (8) Cirrhosis: Code(s): K74.60 - Unspecified cirrhosis of liver Status: Acute Assessment and Plan: Chronic (9) Elevated d-dimer: Code(s): R79.89 - Other specified abnormal findings of blood chemistry Status: Acute Assessment and Plan: Noted to be significantly elevated with no signs of blood clots. -CTA and LE u/s no signs of clots -no abdominal pain noted - left arm is slightly swollen, will get ultrasound - risk and benefit discussed with patient with COVID, elevated D-dimer and low platelets and history of anemia on Brilinta. Due to his acute illness that is hypercoagulable and his stable platelet count, will do 40 mg of Lovenox with close monitoring to prevent DVTs (10) Heart block: Code(s): I45.9 - Conduction disorder, unspecified Status: Acute Assessment and Plan: occasional second-degree type 1 heart block noted on telemetry. Patient is absolutely asymptomatic with no chest pain, passing out or palpitations. Could be due to acute illness or possibly remdesivir? the Remdesivir will be complete tonight and we will see how he does in the next few days on telemetry. He is on metoprolol and if he continues to have occasional heart block, we can adjust the dose or possibly stop the metoprolol. continue to wear CPAP at night and with naps. Will monitor Subjective Date/time seen: 02/16/21 15:44 Interval history: Pt is a 70-year-old male here for COVID. patient was seen today and states he is doing okay. He has shortness of breath with movement and coughing spells but does okay at rest. He worked with physical therapy today and walked around the room a bit. They do have to turn up his oxygen to 8 L when he walks or coughs but at rest is able to tolerate 4 L. he says he is not noticed his left arm being swollen until I mentioned it. He thinks it may have
[2021-02-16 17:11] LABS: Glucose Point of Care 110 mg/dl (65-105)
[2021-02-16] MEDS: ENOXAPARIN 40 MG/0.4 ML SYRINGE SUB-Q (17:56)
[2021-02-16] MEDS: INSULIN GLARGINE (*BKC) 100 UNITS/ML 15 UNITS SUB-Q (21:06)
[2021-02-16] MEDS: REMDESIVIR 100 MG/NS 250 ML 100 MG/250 ML BAG 250 MG IVPB (21:06)
[2021-02-16 21:36] LABS: Glucose Point of Care 158 mg/dl (65-105)
[2021-02-17] VITALS (14 sets, daily range): BP systolic 105–133; BP diastolic 55–74; PULSE 53–75; RESP 15–18; TEMP 36.3–36.8; O2SAT 90–94
[2021-02-17 06:49] LABS: Basophils Percent Auto 0.4 % (0.2-1.2); Eosinophils Percent Auto 0.2 % (0-4.4); Hematocrit 36.1 % (42.0-52.0); Hemoglobin 12.4 g/dL (14.0-18.0); Immature Granulocyte Absolute 0.11 K/mm3 (0.00-0.031); Immature Granulocyte Percent A 2.1 % (0-0.5); Lymphocytes Percent Auto 7.7 % (18.3-44.2); Mean Corpuscular HGB Conc 34.3 g/dl (32-36); Mean Corpuscular Hemoglobin 28.8 pg (26-34); Mean Corpuscular Volume 83.8 fl (80-100); Mean Platelet Volume 12.3 fl (7.4-10.4); Monocytes Absolute Auto 0.3 K/mm3 (0.1-0.6); Monocytes Percent Auto 5.4 % (2.6-8.5); Neutrophils Absolute Auto 4.4 K/mm3 (1.3-6.7); Neutrophils Percent Auto 84.2 % (45.5-73.1); Platelet Count Result 82 k/mm3 (150-375); Red Blood Count 4.31 M/mm3 (4.6-6.20); Red Cell Distribution Width 14.6 % (11.5-14.5); White Blood Count 5.2 K/mm3 (4.5-10.0)
[2021-02-17 07:25] LABS: Alanine Aminotransferase 44 U/L (4-50); Albumin Level 3.1 g/dL (3.5-5.1); Alkaline Phosphatase 172 U/L (38-126); Anion Gap 8 mmol/L (8-16); Aspartate Amino Transferase 56 U/L (17-59); Blood Urea Nitrogen 39 mg/dL (9-20); Calcium 8.3 mg/dL (8.4-10.2); Carbon Dioxide 24 mmol/L (22-30); Chloride 102 mmol/L (98-107); Estimated CRCL calculation 71 ml/min; Estimated Glomerular Filt Rate > 60; Glucose 163 mg/dL (65-110); Magnesium 1.9 mg/dL (1.6-2.3); Potassium 4.4 mmol/L (3.4-5.0); Sodium 134 mmol/L (137-145)
[2021-02-17 07:38] LABS: CRP 2.2 mg/dL (<1.0)
[2021-02-17] MEDS: ALBUTEROL SULFATE (*SP) INHALER 2 PUFF INHALATION ×4 (07:58→21:06)
[2021-02-17 07:59] LABS: Glucose Point of Care 154 mg/dl (65-105)
[2021-02-17 08:43] LABS: D Dimer > 20.00 ug/mL (<0.48)
[2021-02-17] MEDS: INSULIN ASPART (*BKC) 100 UNITS/ML 14 UNITS SUB-Q ×3 (08:55→17:51)
[2021-02-17] MEDS: GABAPENTIN 300 MG CAPSULE 600 MG PO ×3 (08:56→17:50)
[2021-02-17] MEDS: DULoxetine HCL 30 MG CAPSULE.DR PO (08:56)
[2021-02-17] MEDS: PANTOPRAZOLE 40 MG TABLET PO ×2 (08:56→17:52)
[2021-02-17] MEDS: metFORMIN HCL 500 MG TABLET 1000 MG PO ×2 (08:56→17:51)
[2021-02-17] MEDS: METOPROLOL TARTRATE 50 MG TAB 100 MG PO (08:57)
[2021-02-17] MEDS: ISOSORBIDE MONONITRATE 60 MG TAB.ER.24H 120 MG PO (08:57)
[2021-02-17] MEDS: FERROUS SULFATE 324 MG TABLET PO (08:57)
[2021-02-17] MEDS: ASPIRIN 81 MG ENTERIC TABLET PO (08:57)
[2021-02-17] MEDS: ENOXAPARIN 40 MG/0.4 ML SYRINGE SUB-Q (08:58)
[2021-02-17] MEDS: lisinopriL 20 MG TABLET 40 MG PO (08:58)
[2021-02-17] MEDS: amLODIPine BESYLATE 5 MG TABLET 10 MG PO (08:58)
[2021-02-17 12:11] LABS: Glucose Point of Care 256 mg/dl (65-105)
[2021-02-17] MEDS: INSULIN ASPART (*BKC) 100 UNITS/ML SUB-Q (12:35)
--- NOTE | 2021-02-17 13:31 | PM.CNCAR ---
Assessment and Plan Assessment and plan (1) Second degree AV block, [place] type I: Code(s): I44.1 - Atrioventricular block, second degree Status: Acute Assessment and Plan: Review of telemetry strips show second-degree AV block type 1, with brief episodes of 2-1 AV block during daytime and nighttime hours. Apparently had AV block in 2019 when on high-dose beta-micki as well. Asymptomatic. Currently taking metoprolol 100 mg b.i.d. Recommend skipping metoprolol tonight and resume it tomorrow at a lower dose, 50 mg b.i.d.. Follow on telemetry. (2) Coronary artery disease: Code(s): I25.10 - Atherosclerotic heart disease of [place] coronary artery without angina pectoris Status: Acute Assessment and Plan: History of CAD and Left anterior descending stents 2019, STEMI treated with balloon angioplasty at that time as well. Occasional atypical chest pain but basically stable. Continue aspirin, statin, ezetimibe, lower dose beta micki, MARYURI-inhibitor etc.. (3) Pneumonia due to 2019 novel coronavirus: Code(s): U07.1 - COVID-19; J12.82 - Pneumonia due to coronavirus disease 2019 Status: Acute Assessment and Plan: On 4 L of O2, sometimes more, treated per guidelines with remdesivir and dexamethasone. (4) Lower extremity edema: Code(s): R60.0 - Localized edema Status: Acute Assessment and Plan: Does have some lower extremity edema and I's >> O's. Appears volume overloaded. Discussed with Mindy Kumar, agree with cautious diuresis. History of Present Illness History of Present Illness Consult date/time: 02/17/21 13:31 Reason For Visit: COVID pneumonia; Hypooxia Narrative: Date of service 02/17/2021: Mr. Bhanu Plaza is 71-year-old male whom I was asked to see at the request of ELLY Winchester for my advice and opinion regarding the second-degree AV block in consultation. He has a history of CAD, diabetes cirrhosis and sleep apnea on CPAP. The patient was admitted for COVID pneumonia and hypoxia, and he is receiving remdesivir and dexamethasone. Lovenox was started. He is on 4 L of O2 , sometimes up to 8 L high-flow nasal cannula. He was noted to have some second-degree AV block type 1 Today. He takes metoprolol 100 mg b.i.d.. 01/2019 pt admitted with to [facility] an anterior STEMI. Had some stents placed recently at the [facility]. Dr. Jasso proceed with a POBA (plain old balloon angioplasty) of the Left anterior descending which was occluded distally, at the distal margin of a stent. OM 1 had a 95% stenosis, distal circumflex had severe diffuse disease not amenable to PCI, RCA had some distal disease. Of note, during that hospitalization the patient was found to have second-degree AV block at night while sleeping, and his metoprolol was reduced to 50 mg b.i.d. Thereafter he has been followed by Dr. Cuello at the [facility] and has done well with no history of bradycardia or AV block. He does take nitroglycerin occasionally for some atypical chest discomfort, last time being about 2 weeks ago. He had 2 syncopal episodes about 5 months ago when he was being treated for anemia. Review of Systems Constitutional: Constitutional: Reports lethargy and Reports weakness Eyes: Eyes: Reports no additional eye complaints ENT: Denies epistaxis Cardiovascular: Cardiovascular: Denies chest pain, Denies pedal edema, Denies leg edema, Denies lightheadedness and Denies palpitations Respiratory: Respiratory: Reports cough, Reports dyspnea and Reports dyspnea on exertion Gastrointestinal: Gastrointestinal: Denies abdominal pain and Denies hematochezia Genitourinary: Genitourinary: Denies hematuria Musculoskeletal: Musculoskeletal: Reports no additional musculoskeletal complaints Integumentary/Breasts: Skin/Breast: Denies rash Neurologic: Denies confusion Psychiatric: Psychiatric: Denies behavioral changes [facility]
--- NOTE | 2021-02-17 14:48 | PM.IMPN ---
Progress Note: A&P Assessment and Plan (1) Pneumonia due to 2019 novel coronavirus: Code(s): U07.1 - COVID-19; J12.82 - Pneumonia due to coronavirus disease 2019 Status: Acute Assessment and Plan: continue dexamethasone. Patient has completed remdesivir. due to his bradycardia, I will not give additional Remdesivir at this time - Lovenox was started yesterday due to significant elevation in D-dimer but now he is having dark stool. This will be discontinued and will do a stool occult blood test. continue PPI -continue incentive spirometer -Plasma given 02/13/21 -Pt on 4L of o2, will continue o2 to keep sats >90. He requires much more oxygen with activity - will stop antibiotics -consider baricinib if pt requires any further o2 but he appears stable at this time (2) Diabetes: Code(s): E11.9 - Type 2 diabetes mellitus without complications Status: Acute Assessment and Plan: Last glucose 256 -Continue scheduled meal time insulin with SSI and and lantus -Pt takes 60u of quick acting insulin with meals as well as 40u before bed (??) per records -pt educated to not take quick acting insulin before bed and to verify his dosing with his pcp (3) Acute respiratory failure with hypoxia: Code(s): J96.01 - Acute respiratory failure with hypoxia Status: Acute Assessment and Plan: due to above -continue o2 to keep sats >90 (4) Coronary artery disease: Code(s): I25.10 - Atherosclerotic heart disease of [place] coronary artery without angina pectoris Status: Acute Assessment and Plan: No CP today -continue aspirin, lisinopril, and metoprolol (5) Hypertension: Code(s): I10 - Essential (primary) hypertension Status: Acute Assessment and Plan: Last bp 105/55 -continue amlodipine, metoprolol, imdur, and lisinopril (6) Sleep apnea: Code(s): G47.30 - Sleep apnea, unspecified Status: Acute Assessment and Plan: continue cpap (7) Pancytopenia: Code(s): D61.818 - Other pancytopenia Status: Acute Assessment and Plan: Platelets slightly decreased more today 82,000. He is low at baseline but had been plateauing. Likely due to cirrhosis. -monitor -lovenox stopped, see below (8) Cirrhosis: Code(s): K74.60 - Unspecified cirrhosis of liver Status: Acute Assessment and Plan: Chronic (9) Elevated d-dimer: Code(s): R79.89 - Other specified abnormal findings of blood chemistry Status: Acute Assessment and Plan: Noted to be significantly elevated with no signs of deep venous blood clots. -CTA negative for PE -no abdominal pain noted - left arm is slightly swollen, superficial blood clot noted on ultrasound - risk and benefit discussed with patient with COVID, elevated D-dimer and low platelets and history of anemia on Brilinta. Due to his acute illness that is hypercoagulable he was given Lovenox and then started having darker stool. Lovenox will be stopped and occult blood will be checked. - continue SCDs (10) Heart block: Code(s): I45.9 - Conduction disorder, unspecified Status: Acute Assessment and Plan: occasional second-degree type 1 heart block noted on telemetry. Patient is absolutely asymptomatic with no chest pain, passing out or palpitations. -cardiology was consulted and recommended decreasing metoprolol - monitor on tele Subjective Date/time seen: 02/17/21 14:48 Interval history: Pt is a 70-year-old male here for COVID. patient was seen today and states he does not feel as good as he did yesterday. He continues to have coughing spells and sinus drainage that is irritating his throat. He does not feel short of breath at rest but only feels short of breath with coughing. he has not been out of bed today. His appetite is about at 20% await usually is. He started having dark stool ov
[2021-02-17] MEDS: BENZOCAINE/MENTHOL (*BKC) 18 EA LOZENGE 1 LOZENGE PO (15:06)
[2021-02-17 16:20] LABS: Glucose Point of Care 157 mg/dl (65-105)
[2021-02-17] MEDS: FUROSEMIDE 40 MG TABLET PO (17:56)
[2021-02-17] MEDS: guaiFENesin 12 HR 600 MG TABCR PO (20:12)
[2021-02-17] MEDS: INSULIN GLARGINE (*BKC) 100 UNITS/ML 15 UNITS SUB-Q (20:13)
[2021-02-17 23:09] LABS: Glucose Point of Care 200 mg/dl (65-105)
[2021-02-18] VITALS (10 sets, daily range): BP systolic 111–145; BP diastolic 54–62; PULSE 47–101; RESP 18–24; TEMP 36.2–36.9; O2SAT 90–98
[2021-02-18 06:24] LABS: Hematocrit 37.5 % (42.0-52.0); Hemoglobin 12.9 g/dL (14.0-18.0); Mean Corpuscular HGB Conc 34.4 g/dl (32-36); Mean Corpuscular Hemoglobin 29.7 pg (26-34); Mean Corpuscular Volume 86.2 fl (80-100); Mean Platelet Volume 11.8 fl (7.4-10.4); Platelet Count Result 84 k/mm3 (150-375); Red Blood Count 4.35 M/mm3 (4.6-6.20); Red Cell Distribution Width 14.9 % (11.5-14.5); White Blood Count 6.2 K/mm3 (4.5-10.0)
[2021-02-18 06:51] LABS: Alanine Aminotransferase 51 U/L (4-50); Alkaline Phosphatase 177 U/L (38-126); Anion Gap 10 mmol/L (8-16); Aspartate Amino Transferase 54 U/L (17-59); Bilirubin,Total 0.9 mg/dL (0.2-1.3); Blood Urea Nitrogen 33 mg/dL (9-20); Calcium 8.6 mg/dL (8.4-10.2); Carbon Dioxide 24 mmol/L (22-30); Chloride 101 mmol/L (98-107); Estimated CRCL calculation 60 ml/min; Estimated Glomerular Filt Rate 59; Glucose 134 mg/dL (65-110); Potassium 4.6 mmol/L (3.4-5.0); Sodium 135 mmol/L (137-145)
[2021-02-18 08:59] LABS: Glucose Point of Care 134 mg/dl (65-105)
[2021-02-18] MEDS: ALBUTEROL SULFATE (*SP) INHALER 2 PUFF INHALATION ×4 (09:15→20:32)
[2021-02-18] MEDS: GABAPENTIN 300 MG CAPSULE 600 MG PO ×3 (09:52→18:27)
[2021-02-18] MEDS: METOPROLOL TARTRATE 50 MG TAB PO (09:52)
[2021-02-18] MEDS: ASPIRIN 81 MG ENTERIC TABLET PO (09:52)
[2021-02-18] MEDS: lisinopriL 20 MG TABLET 40 MG PO (09:52)
[2021-02-18] MEDS: guaiFENesin 12 HR 600 MG TABCR PO ×2 (09:52→20:55)
[2021-02-18] MEDS: ISOSORBIDE MONONITRATE 60 MG TAB.ER.24H 120 MG PO (09:52)
[2021-02-18] MEDS: DULoxetine HCL 30 MG CAPSULE.DR PO (09:53)
[2021-02-18] MEDS: PANTOPRAZOLE 40 MG TABLET PO ×2 (09:53→18:27)
[2021-02-18] MEDS: metFORMIN HCL 500 MG TABLET 1000 MG PO ×2 (09:53→18:27)
[2021-02-18] MEDS: amLODIPine BESYLATE 5 MG TABLET 10 MG PO (09:53)
[2021-02-18] MEDS: FERROUS SULFATE 324 MG TABLET PO (09:53)
[2021-02-18] MEDS: INSULIN ASPART (*BKC) 100 UNITS/ML 14 UNITS SUB-Q ×3 (09:54→18:28)
[2021-02-18] MEDS: BENZOCAINE/MENTHOL (*BKC) 18 EA LOZENGE 1 LOZENGE PO (09:55)
[2021-02-18 12:22] LABS: Glucose Point of Care 209 mg/dl (65-105)
--- NOTE | 2021-02-18 12:32 | PM.IMPN ---
Progress Note: A&P Assessment and Plan (1) Pneumonia due to 2019 novel coronavirus: Code(s): U07.1 - COVID-19; J12.82 - Pneumonia due to coronavirus disease 2019 Status: Acute Assessment and Plan: Patient diagnosed with COVID on 02/10 but results not available. Plasma given 02/13/21. He has completed 5 days of remdesivir; this was not extended due to his bradycardia. He remains on Decadron. He also remains on albuterol HFA and Mucinex. Oxygen requirements have worsened since yesterday. D-dimer is greater than 20 but CRP is only 2.2 yesterday. Concern patient will continue to worsen. Despite not having AA verify diagnosis, we will start the baricinib today. Risks and benefits were discussed at length with the patient and he is agreeable. I have requested a copy of the COVID results to verify this diagnosis. Hgb stable and plt count low but chronic so will resume Arixtra. Abx have been stopped. Wean O2 as toelrated. Encouraged IS use. Encouraged lying prone as much as possible (2) Acute respiratory failure with hypoxia: Code(s): J96.01 - Acute respiratory failure with hypoxia Status: Acute Assessment and Plan: Related to above. Wean oxygen as tolerated (3) Diabetes: Code(s): E11.9 - Type 2 diabetes mellitus without complications Status: Acute Assessment and Plan: The patient's blood glucose was reviewed on 02/18 Glucose remains reasonably well controlled. Glucose this morning 134 so no change in Lantus. Continue AccuCheks covering with sliding scale. Hypoglycemia protocol available as needed. Continue current medications. (4) Coronary artery disease: Code(s): I25.10 - Atherosclerotic heart disease of [place] coronary artery without angina pectoris Status: Acute Assessment and Plan: Stable. Continue aspirin, lisinopril, and metoprolol. Patient allergic to statin therapy. (5) Hypertension: Code(s): I10 - Essential (primary) hypertension Status: Acute Assessment and Plan: Patient's blood pressure was reviewed on 02/18 Blood pressure remains well controlled. Will continue current medications with amlodipine, metoprolol, imdur, and lisinopril (6) Sleep apnea: Code(s): G47.30 - Sleep apnea, unspecified Status: Acute Assessment and Plan: Patient refusing CPAP. Encourage PAP therapy. (7) Pancytopenia: Code(s): D61.818 - Other pancytopenia Status: Acute Assessment and Plan: WBC was 2300 on admisison but this has resolved. probably related to the viral illness. Hgb 12.7 and has been stable since admission. [place] probably more chronic finding. Follow Platelet count was 56K on admission but improved to the 80-90K range. He states this is chronic and felt related to his cirrhosis. (8) Cirrhosis: Code(s): K74.60 - Unspecified cirrhosis of liver Status: Acute Assessment and Plan: CT notes cirrhosis. INR has climbed to 1.6. Liver enzymes only mildly elevated at times. Tbili normal. Albumin was normal on admisison. Follow. (9) Elevated d-dimer: Code(s): R79.89 - Other specified abnormal findings of blood chemistry Status: Acute Assessment and Plan: Noted to be significantly elevated. [place] related to COVID. CTA chest was negative for PE. LE venous doppler negative for DVT but does show superficial thrombosis of the bilateral gastrocnemius veins. Left hand was slightly swollen but LUE doppler negative for DVT but did show superficial thrombosis of the left cephalic vein. Will use Arixtra and follow HH, plt. (10) Heart block: Code(s): I45.9 - Conduction disorder, unspecified Status: Acute Assessment and Plan: Tele showing occasional second-degree type 1 heart block noted on telemetry. Patient is asymptomatic from this. Could be partially related to the Remdesivir. Cardiology was consulted and recommended decreasin
[2021-02-18] MEDS: INSULIN ASPART (*BKC) 100 UNITS/ML SUB-Q (12:40)
--- NOTE | 2021-02-18 14:41 | PHAR ---
DR KLINE IS AWARE OF PLATELET COUNT 84,000. CONTINUE WITH FONDAPARINUX.
--- NOTE | 2021-02-18 16:20 | PM.PNCARD ---
Progress Note: A&P Assessment and Plan (1) Second degree AV block, Mobitz type I: Code(s): I44.1 - Atrioventricular block, second degree Status: Acute Assessment and Plan: Still w/ episodes of 2nd degree AV block type 1, after skipping a dose of metoprolol and reducing to 50 mg b.i.d.. Will hold until AV block improves, then resume at a lower dose. Watch for rebound sinus tachycardia or angina Follow on telemetry. (2) Coronary artery disease: Code(s): I25.10 - Atherosclerotic heart disease of [place] coronary artery without angina pectoris Status: Acute Assessment and Plan: History of CAD and Left anterior descending stents 2019, STEMI treated with balloon angioplasty at that time as well. Occasional atypical chest pain but basically stable. Continue aspirin, statin, ezetimibe, MARYURI-inhibitor etc.. (3) Pneumonia due to 2019 novel coronavirus: Code(s): U07.1 - COVID-19; J12.82 - Pneumonia due to coronavirus disease 2018 Status: Acute Assessment and Plan: On 4 L- 8 L of O2, sometimes more, treated per guidelines with dexamethasone and now baricitinib (Olumiant) (4) Lower extremity edema: Code(s): R60.0 - Localized edema Status: Acute Assessment and Plan: Appears volume overloaded. Check a ProBNP in a.m Subjective Date/time seen: 02/18/21 16:20 Interval history: Follow-up for second-degree AV block type 1, in the setting of pneumonia due to COVID-19. Also: CAD with an anterior STEMI in January 2019 status post angioplasty of the Left anterior descending, Date of service 02/18/2021: Yesterday I held 1 dose of metoprolol then reduced the dose from 100 mg b.i.d. to: 50 mg b.i.d. Received 1 dose of Lasix yesterday p.o. for edema. Tele shos pt still having episodes of 2nd AV block type 1, HR 50's. Still occ SOB w/ paroxysms of coughing. Will start baricinib due to worsening O2 requirements ; needing a L high-flow nasal oxygen more frequently. Review of Systems Constitutional: Constitutional: Reports fatigue Eyes: Eyes: Reports no additional eye complaints ENT: Denies nasal congestion Cardiovascular: Cardiovascular: Denies chest pain, Reports pedal edema, Reports leg edema and Denies lightheadedness Comments: edema a little better after Lasix Respiratory: Respiratory: Reports cough, Reports dyspnea and Reports dyspnea on exertion Gastrointestinal: Gastrointestinal: Denies abdominal pain Genitourinary: Genitourinary: Denies dysuria Musculoskeletal: Musculoskeletal: Denies back pain Integumentary/Breasts: Skin/Breast: Denies rash Neurologic: Denies confusion Psychiatric: Psychiatric: Reports no additional psychiatric complaints Exam Const: General: no acute distress and uncomfortable HENMT: General nose exam: no epistaxis Eyes: EOM: EOMs intact bilaterally Neck: Neck: supple Resp: Auscultation: diminished lung sounds Cardio: Rate: regular rate Rhythm: regular rhythm Other: distant heart sounds GI: GI Palp: Yes Soft to palpation and No Tenderness to palpation present (GI) Skin: General skin exam: no rashes or lesions noted Neuro: Cognition (Neuro): normal cognition Speech: normal speech Extrem: General: edema Other: LE edema better, UE edema present Psych: Affect: normal affect Objective Data Vital Signs Vital Signs: Vital Signs - 24 hr 02/17/21 20:00 02/17/21 21:07 02/17/21 21:08 Temperature 97.3 F L Pulse Rate 62 66 66 Respiratory Rate 18 Blood Pressure 128/74 Pulse Oximetry 93 93 02/17/21 23:33 02/18/21 00:00 02/18/21 04:00 Temperature 97.5 F L 97.6 F Pulse Rate 62 59 L 77 Respiratory Rate 18 20 Blood Pressure 122/68 145/62 H Pulse Oximetry 93 92 02/18/21 08:00 02/18/21 09:15 02/18/21 09:52 Temperature 97.1 F L Pulse Rate 82 70 Respiratory Rate 24 H Blood Pressure 111/55 L Pulse Oximetry 98 93 90 02/18/21 12:00 Temperature 98.1 F Pulse Rate
[2021-02-18 16:59] LABS: Glucose Point of Care 182 mg/dl (65-105)
[2021-02-18 17:51] LABS: Basophils Percent Auto 0.4 % (0.2-1.2); Eosinophils Percent Auto 0.3 % (0-4.4); Hematocrit 40.9 % (42.0-52.0); Hemoglobin 13.8 g/dL (14.0-18.0); Immature Granulocyte Absolute 0.15 K/mm3 (0.00-0.031); Immature Granulocyte Percent A 1.9 % (0-0.5); Immature Platelet Fraction Pct 10.8 % (0.9-11.2); Lymphocytes Absolute Auto 0.33 K/mm3 (0.9-3.2); Lymphocytes Percent Auto 4.3 % (18.3-44.2); Mean Corpuscular HGB Conc 33.7 g/dl (32-36); Mean Corpuscular Hemoglobin 29.4 pg (26-34); Mean Platelet Volume 11.9 fl (7.4-10.4); Monocytes Absolute Auto 0.3 K/mm3 (0.1-0.6); Monocytes Percent Auto 3.9 % (2.6-8.5); Neutrophils Absolute Auto 6.9 K/mm3 (1.3-6.7); Neutrophils Percent Auto 89.2 % (45.5-73.1); Platelet Count Result 109 k/mm3 (150-375); Red Cell Distribution Width 15.3 % (11.5-14.5); White Blood Count 7.7 K/mm3 (4.5-10.0)
[2021-02-18] MEDS: FONDAPARINUX SODIUM 2.5 MG/0.5 ML SYRINGE SUB-Q (18:27)
[2021-02-18] MEDS: BARICITINIB 2 MG TABLET 4 MG PO (18:30)
[2021-02-18] MEDS: INSULIN GLARGINE (*BKC) 100 UNITS/ML 15 UNITS SUB-Q (20:58)
[2021-02-18 21:14] LABS: IFOB Positive Control Positive; Immunochemical Fecal Occult Bl Positive (N)
[2021-02-19] VITALS (13 sets, daily range): BP systolic 103–131; BP diastolic 54–70; PULSE 57–102; RESP 14–24; TEMP 36.2–36.8; O2SAT 90–98
[2021-02-19 06:38] LABS: Basophils Percent Auto 0.4 % (0.2-1.2); Eosinophils Percent Auto 0.6 % (0-4.4); Hematocrit 36.7 % (42.0-52.0); Hemoglobin 12.8 g/dL (14.0-18.0); Lymphocytes Percent Auto 9.9 % (18.3-44.2); Mean Corpuscular HGB Conc 34.9 g/dl (32-36); Mean Corpuscular Hemoglobin 29.2 pg (26-34); Mean Corpuscular Volume 83.8 fl (80-100); Monocytes Absolute Auto 0.2 K/mm3 (0.1-0.6); Monocytes Percent Auto 3.6 % (2.6-8.5); Neutrophils Absolute Auto 4.2 K/mm3 (1.3-6.7); Neutrophils Percent Auto 83.5 % (45.5-73.1); Platelet Count Result 105 k/mm3 (150-375); Red Blood Count 4.38 M/mm3 (4.6-6.20); White Blood Count 5.1 K/mm3 (4.5-10.0)
[2021-02-19 06:52] LABS: Alanine Aminotransferase 51 U/L (4-50); Alkaline Phosphatase 169 U/L (38-126); Anion Gap 6 mmol/L (8-16); Aspartate Amino Transferase 52 U/L (17-59); Bilirubin,Total 1.1 mg/dL (0.2-1.3); Blood Urea Nitrogen 35 mg/dL (9-20); Calcium 8.4 mg/dL (8.4-10.2); Carbon Dioxide 26 mmol/L (22-30); Chloride 101 mmol/L (98-107); Estimated CRCL calculation 65 ml/min; Estimated Glomerular Filt Rate > 60; Glucose 123 mg/dL (65-110); Magnesium 1.6 mg/dL (1.6-2.3); Phosphorus 3.7 mg/dL (2.5-4.5); Potassium 4.7 mmol/L (3.4-5.0); Sodium 133 mmol/L (137-145)
[2021-02-19 07:43] LABS: Glucose Point of Care 157 mg/dl (65-105)
[2021-02-19] MEDS: ALBUTEROL SULFATE (*SP) INHALER 2 PUFF INHALATION ×4 (07:56→21:25)
[2021-02-19] MEDS: MAGNESIUM SULF 2 GM/WATER 50ML 2 GM/50 ML BAG IVPB (08:25)
[2021-02-19] MEDS: INSULIN ASPART (*BKC) 100 UNITS/ML 14 UNITS SUB-Q ×3 (08:29→17:34)
[2021-02-19] MEDS: GABAPENTIN 300 MG CAPSULE 600 MG PO ×3 (08:30→17:34)
[2021-02-19] MEDS: ISOSORBIDE MONONITRATE 60 MG TAB.ER.24H 120 MG PO (08:31)
[2021-02-19] MEDS: FERROUS SULFATE 324 MG TABLET PO (08:31)
[2021-02-19] MEDS: metFORMIN HCL 500 MG TABLET 1000 MG PO ×2 (08:31→17:35)
[2021-02-19] MEDS: DULoxetine HCL 30 MG CAPSULE.DR PO (08:31)
[2021-02-19] MEDS: PANTOPRAZOLE 40 MG TABLET PO ×2 (08:32→17:35)
[2021-02-19] MEDS: amLODIPine BESYLATE 5 MG TABLET 10 MG PO (08:32)
[2021-02-19] MEDS: ASPIRIN 81 MG ENTERIC TABLET PO (08:32)
[2021-02-19] MEDS: lisinopriL 20 MG TABLET 40 MG PO (08:32)
[2021-02-19] MEDS: guaiFENesin 12 HR 600 MG TABCR PO ×2 (08:32→21:14)
[2021-02-19] MEDS: BARICITINIB 2 MG TABLET 4 MG PO (08:33)
[2021-02-19] MEDS: BENZOCAINE/MENTHOL (*BKC) 18 EA LOZENGE 1 LOZENGE PO (08:49)
[2021-02-19 11:57] LABS: Glucose Point of Care 249 mg/dl (65-105)
[2021-02-19] MEDS: ARTIFICIAL TEARS OPHTH SOLN 15 ML BOTTLE 1 DROP EACH EYE (12:01)
[2021-02-19] MEDS: INSULIN ASPART (*BKC) 100 UNITS/ML SUB-Q (12:03)
--- NOTE | 2021-02-19 12:29 | PCNWS ---
Weekly nutritional screen. Patient is tolerating current diet with adequate intake. No nutritional needs at this time.
--- NOTE | 2021-02-19 12:40 | PM.IMPN ---
Progress Note: A&P Assessment and Plan (1) Pneumonia due to 2019 novel coronavirus: Code(s): U07.1 - COVID-19; J12.82 - Pneumonia due to coronavirus disease 2019 Status: Acute Assessment and Plan: Patient diagnosed with COVID on 02/10 and results on the chart. Plasma given 02/13/21. He has completed 5 days of remdesivir; this was not extended due to his bradycardia. He remains on Decadron and Baricinib added 02/18 for worsening hypoxia. He also remains on albuterol HFA and Mucinex. D-dimer is greater than 20 but CRP is only 2.2. Wean O2 as tolerated. Encouraged IS use. Encouraged lying prone as much as possible. Move to IMU since this jorge probably continue to worsen. (2) Acute respiratory failure with hypoxia: Code(s): J96.01 - Acute respiratory failure with hypoxia Status: Acute Assessment and Plan: Related to above. Wean oxygen as tolerated (3) Diabetes: Code(s): E11.9 - Type 2 diabetes mellitus without complications Status: Acute Assessment and Plan: The patient's blood glucose was reviewed on 02/19 Glucose remains reasonably well controlled. Glucose this morning 128 so no change in Lantus. Continue AccuCheks covering with sliding scale. Hypoglycemia protocol available as needed. Continue current medications. (4) Coronary artery disease: Code(s): I25.10 - Atherosclerotic heart disease of [place] coronary artery without angina pectoris Status: Acute Assessment and Plan: Stable. Continue aspirin and lisinopril. Metoprolol on hold. Patient allergic to statin therapy (although crestor listed on home med list?). (5) Hypertension: Code(s): I10 - Essential (primary) hypertension Status: Acute Assessment and Plan: Patient's blood pressure was reviewed on 02/19 Blood pressure remains well controlled. Will continue current medications with amlodipine, Imdur, and lisinopril. Metoprolol on hold now. (6) Sleep apnea: Code(s): G47.30 - Sleep apnea, unspecified Status: Acute Assessment and Plan: Patient refusing CPAP. Encourage PAP therapy. (7) Pancytopenia: Code(s): D61.818 - Other pancytopenia Status: Acute Assessment and Plan: WBC was 2300 on admisison but this has resolved. Probably related to the viral illness. Hgb 12.7 and has been stable since admission. [place] probably more chronic finding. Follow Platelet count was 56K on admission but improved to the 105K range. He states this is chronic and felt related to his cirrhosis. (8) Cirrhosis: Code(s): K74.60 - Unspecified cirrhosis of liver Status: Acute Assessment and Plan: CT notes cirrhosis. INR has climbed to 1.6. Liver enzymes only mildly elevated at times. Tbili normal. Albumin was normal on admission. Follow. (9) Elevated d-dimer: Code(s): R79.89 - Other specified abnormal findings of blood chemistry Status: Acute Assessment and Plan: Noted to be significantly elevated. [place] related to COVID. CTA chest was negative for PE. LE venous doppler negative for DVT but does show superficial thrombosis of the bilateral gastrocnemius veins. Left hand was slightly swollen but LUE doppler negative for DVT but did show superficial thrombosis of the left cephalic vein. Arixtra started but now has guaiac positive stools (ordered due to complaints of 'dark' stools) but patient having epistaxis which could provide a false positive test. Hgb stable. Benefits of anticoagulation outweighs the risk so will resume Aritra. (10) Heart block: Code(s): I45.9 - Conduction disorder, unspecified Status: Acute Assessment and Plan: Tele showing occasional second-degree AVB type 1. Patient is asymptomatic from this. Could be partially related to the Remdesivir but this has been stopped now. Cardiology was consulted and recommended decreasing metoprolol which was done (100mg Q12h
[2021-02-19 12:52] LABS: Glucose Point of Care 128 mg/dl (65-105)
[2021-02-19] MEDS: FONDAPARINUX SODIUM 2.5 MG/0.5 ML SYRINGE SUB-Q (13:38)
[2021-02-19] MEDS: FUROSEMIDE INJ 40 MG/4 ML VIAL IV PUSH (13:38)
--- NOTE | 2021-02-19 14:49 | PC.NURSE ---
This patient, Bhanu Plaza, was transferred to IMU room 202 on 02/19/21 at 1340. Personal belongings sent with patient. Report given to PRIMO Contreras. Appropriate documentation sent with patient.
--- NOTE | 2021-02-19 15:13 | PC.NURSE ---
This patient, Bhanu Plaza, was received from [[phone] ] on 02/19/21 at 1340. Report received from PRIMO Avendano @ [phone] Patient/family oriented to unit policies and routines
[2021-02-19 17:40] LABS: Glucose Point of Care 188 mg/dl (65-105)
[2021-02-19] MEDS: INSULIN GLARGINE (*BKC) 100 UNITS/ML 15 UNITS SUB-Q (21:14)
[2021-02-19 22:19] LABS: Glucose Point of Care 213 mg/dl (65-105)
[2021-02-20] VITALS (16 sets, daily range): BP systolic 91–122; BP diastolic 50–71; PULSE 53–95; RESP 18–24; TEMP 36.6–37; O2SAT 94–100
[2021-02-20 04:59] LABS: Basophils Percent Auto 0.6 % (0.2-1.2); Eosinophils Percent Auto 0.6 % (0-4.4); Hemoglobin 12.1 g/dL (14.0-18.0); Immature Granulocyte Absolute 0.16 K/mm3 (0.00-0.031); Immature Granulocyte Percent A 3.3 % (0-0.5); Lymphocytes Absolute Auto 0.49 K/mm3 (0.9-3.2); Lymphocytes Percent Auto 10.1 % (18.3-44.2); Mean Corpuscular HGB Conc 33.6 g/dl (32-36); Mean Corpuscular Hemoglobin 28.4 pg (26-34); Mean Corpuscular Volume 84.5 fl (80-100); Mean Platelet Volume 12.3 fl (7.4-10.4); Monocytes Absolute Auto 0.3 K/mm3 (0.1-0.6); Monocytes Percent Auto 5.6 % (2.6-8.5); Neutrophils Absolute Auto 3.9 K/mm3 (1.3-6.7); Neutrophils Percent Auto 79.8 % (45.5-73.1); Platelet Count Result 93 k/mm3 (150-375); Red Blood Count 4.26 M/mm3 (4.6-6.20); Red Cell Distribution Width 14.9 % (11.5-14.5); White Blood Count 4.8 K/mm3 (4.5-10.0)
[2021-02-20 05:23] LABS: Alanine Aminotransferase 51 U/L (4-50); Albumin Level 2.9 g/dL (3.5-5.1); Alkaline Phosphatase 170 U/L (38-126); Anion Gap 8 mmol/L (8-16); Aspartate Amino Transferase 45 U/L (17-59); Bilirubin,Total 1.2 mg/dL (0.2-1.3); Blood Urea Nitrogen 36 mg/dL (9-20); CRP 1.6 mg/dL (<1.0); Calcium 8.5 mg/dL (8.4-10.2); Carbon Dioxide 25 mmol/L (22-30); Chloride 99 mmol/L (98-107); Estimated CRCL calculation 60 ml/min; Estimated Glomerular Filt Rate 59; Glucose 188 mg/dL (65-110); Magnesium 1.9 mg/dL (1.6-2.3); Potassium 4.6 mmol/L (3.4-5.0); Sodium 132 mmol/L (137-145)
[2021-02-20 05:27] LABS: D Dimer 9.43 ug/mL (<0.48)
[2021-02-20] MEDS: ALBUTEROL SULFATE (*SP) INHALER 2 PUFF INHALATION ×3 (08:20→16:40)
[2021-02-20 08:53] LABS: Glucose Point of Care 172 mg/dl (65-105)
[2021-02-20] MEDS: INSULIN ASPART (*BKC) 100 UNITS/ML 14 UNITS SUB-Q ×3 (09:06→17:03)
[2021-02-20] MEDS: lisinopriL 20 MG TABLET 40 MG PO (09:08)
[2021-02-20] MEDS: SODIUM CHLORIDE NASAL GEL 14.1 GM 1 APPLIC NASAL (09:08)
[2021-02-20] MEDS: GABAPENTIN 300 MG CAPSULE 600 MG PO ×3 (09:10→17:04)
[2021-02-20] MEDS: metFORMIN HCL 500 MG TABLET 1000 MG PO ×2 (09:11→17:05)
[2021-02-20] MEDS: guaiFENesin 12 HR 600 MG TABCR PO ×2 (09:11→21:29)
[2021-02-20] MEDS: ISOSORBIDE MONONITRATE 60 MG TAB.ER.24H 120 MG PO (09:11)
[2021-02-20] MEDS: DULoxetine HCL 30 MG CAPSULE.DR PO (09:12)
[2021-02-20] MEDS: BARICITINIB 2 MG TABLET 4 MG PO (09:12)
[2021-02-20] MEDS: amLODIPine BESYLATE 5 MG TABLET 10 MG PO (09:12)
[2021-02-20] MEDS: FERROUS SULFATE 324 MG TABLET PO (09:12)
[2021-02-20] MEDS: ASPIRIN 81 MG ENTERIC TABLET PO (09:12)
[2021-02-20] MEDS: PANTOPRAZOLE 40 MG TABLET PO ×2 (09:12→17:05)
[2021-02-20] MEDS: FONDAPARINUX SODIUM 2.5 MG/0.5 ML SYRINGE SUB-Q (09:14)
[2021-02-20] MEDS: METOPROLOL TARTRATE 25 MG TABLET PO (09:25)
[2021-02-20] MEDS: ACETAMINOPHEN 325 MG TABLET 650 MG PO (09:30)
[2021-02-20 12:22] LABS: Glucose Point of Care 197 mg/dl (65-105)
--- NOTE | 2021-02-20 14:40 | PCPTNOTE ---
Patient transferred from [facility] to IMU due to change in medical status. Will resume PT when medically able.
--- NOTE | 2021-02-20 15:41 | PM.IMPN ---
Progress Note: A&P Assessment and Plan (1) Pneumonia due to 2019 novel coronavirus: Code(s): U07.1 - COVID-19; J12.82 - Pneumonia due to coronavirus disease 2019 Status: Acute Assessment and Plan: Patient diagnosed with COVID on 02/10 and results on the chart. Plasma given 02/13/21. He has completed 5 days of remdesivir; this was not extended due to his bradycardia. He remains on Decadron with Baricinib added 02/18 for worsening hypoxia. He also remains on albuterol HFA and Mucinex. D-dimer was greater than 20 but trending down now; CRP is better at 1.6. O2 weaned to 6L HFNC now. Wean O2 as tolerated. Encouraged IS use. Encouraged lying prone as much as possible. (2) Acute respiratory failure with hypoxia: Code(s): J96.01 - Acute respiratory failure with hypoxia Status: Acute Assessment and Plan: Related to above. Wean oxygen as tolerated (3) Diabetes: Code(s): E11.9 - Type 2 diabetes mellitus without complications Status: Acute Assessment and Plan: The patient's blood glucose was reviewed on 02/20 Glucose remains reasonably well controlled. Glucose this morning 188 so no change in Lantus. Continue AccuCheks covering with sliding scale. Hypoglycemia protocol available as needed. Continue current medications. (4) Coronary artery disease: Code(s): I25.10 - Atherosclerotic heart disease of [place] coronary artery without angina pectoris Status: Acute Assessment and Plan: Stable. Continue aspirin and lisinopril. Metoprolol resumed at lower dose. Patient allergic to statin therapy (although crestor listed on home med list?). He states the Cardiolgist has him on a 'small' dose of Crestor but the dose is listed as 20mg so will clarify this with his pharmacy befo[facility] starting. (5) Hypertension: Code(s): I10 - Essential (primary) hypertension Status: Acute Assessment and Plan: Patient's blood pressure was reviewed on 02/19 Blood pressure remains well controlled. Will continue current medications with amlodipine, Imdur, and lisinopril. Metoprolol resumed this morning at lower dose (6) Sleep apnea: Code(s): G47.30 - Sleep apnea, unspecified Status: Acute Assessment and Plan: Patient refusing CPAP. Encourage PAP therapy. (7) Pancytopenia: Code(s): D61.818 - Other pancytopenia Status: Acute Assessment and Plan: WBC was 2300 on admisison but this has resolved. Probably related to the viral illness. Hgb 12.7 and has been stable since admission. [place] probably more chronic finding. Follow Platelet count was 56K on admission but improved to the 105K range before trending down. He states this is chronic and felt related to his cirrhosis. Follow on Arixtra (8) Cirrhosis: Code(s): K74.60 - Unspecified cirrhosis of liver Status: Acute Assessment and Plan: CT notes cirrhosis. INR has climbed to 1.6. Liver enzymes only mildly elevated at times. Tbili normal. Albumin was normal on admission. Follow. (9) Elevated d-dimer: Code(s): R79.89 - Other specified abnormal findings of blood chemistry Status: Acute Assessment and Plan: DDimer was significantly elevated. [place] related to COVID. CTA chest was negative for PE. LE venous doppler negative for DVT but does show superficial thrombosis of the bilateral gastrocnemius veins. Left hand was slightly swollen but LUE doppler negative for DVT but did show superficial thrombosis of the left cephalic vein. Katie had one dark stool and was found to have guaiac positive stools but patient having epistaxis which could provide a false positive test. Benefits of anticoagulation outweighs the risk so we started Aritra. Hgb remining stable. Follow closely (10) Heart block: Code(s): I45.9 - Conduction disorder, unspecified Status: Acute Assessment and Plan: Tele showing occasional second-de
[2021-02-20] MEDS: INSULIN ASPART (*BKC) 100 UNITS/ML SUB-Q (17:03)
[2021-02-20] MEDS: MAGNESIUM OXIDE 400 MG TABLET PO (17:04)
[2021-02-20 17:11] LABS: Glucose Point of Care 279 mg/dl (65-105)
[2021-02-20] MEDS: INSULIN GLARGINE (*BKC) 100 UNITS/ML 15 UNITS SUB-Q (21:29)
[2021-02-20 21:38] LABS: Glucose Point of Care 227 mg/dl (65-105)
[2021-02-21] VITALS (15 sets, daily range): BP systolic 105–119; BP diastolic 51–72; PULSE 49–119; RESP 17–22; TEMP 36.5–37.1; O2SAT 91–99
--- NOTE | 2021-02-21 05:36 | PCRCNOTE ---
Window of time for administration has passed. See next scheduled administration.
[2021-02-21 05:48] LABS: Basophils Percent Auto 0.3 % (0.2-1.2); Eosinophils Percent Auto 0.3 % (0-4.4); Hematocrit 40.9 % (42.0-52.0); Hemoglobin 13.7 g/dL (14.0-18.0); Immature Granulocyte Absolute 0.11 K/mm3 (0.00-0.031); Immature Granulocyte Percent A 1.9 % (0-0.5); Lymphocytes Absolute Auto 0.46 K/mm3 (0.9-3.2); Lymphocytes Percent Auto 7.9 % (18.3-44.2); Mean Corpuscular HGB Conc 33.5 g/dl (32-36); Mean Corpuscular Hemoglobin 29.6 pg (26-34); Mean Corpuscular Volume 88.3 fl (80-100); Mean Platelet Volume 12.4 fl (7.4-10.4); Monocytes Absolute Auto 0.3 K/mm3 (0.1-0.6); Monocytes Percent Auto 4.3 % (2.6-8.5); Neutrophils Percent Auto 85.3 % (45.5-73.1); Platelet Count Result 111 k/mm3 (150-375); Red Blood Count 4.63 M/mm3 (4.6-6.20); Red Cell Distribution Width 15.3 % (11.5-14.5); White Blood Count 5.8 K/mm3 (4.5-10.0)
[2021-02-21 05:54] LABS: Alanine Aminotransferase 72 U/L (4-50); Aspartate Amino Transferase 67 U/L (17-59); Estimated CRCL calculation 65 ml/min; Estimated Glomerular Filt Rate > 60
[2021-02-21 06:05] LABS: Albumin Level 3.3 g/dL (3.5-5.1); Anion Gap 7 mmol/L (8-16); Blood Urea Nitrogen 43 mg/dL (9-20); Calcium 9.2 mg/dL (8.4-10.2); Carbon Dioxide 26 mmol/L (22-30); Chloride 97 mmol/L (98-107); Estimated CRCL calculation 65 ml/min; Estimated Glomerular Filt Rate > 60; Glucose 164 mg/dL (65-110); Phosphorus 3.9 mg/dL (2.5-4.5); Potassium 5.5 mmol/L (3.4-5.0); Sodium 130 mmol/L (137-145)
[2021-02-21] MEDS: ALBUTEROL SULFATE (*SP) INHALER 2 PUFF INHALATION ×3 (08:45→20:38)
[2021-02-21] MEDS: GABAPENTIN 300 MG CAPSULE 600 MG PO ×3 (09:04→17:06)
[2021-02-21] MEDS: guaiFENesin 12 HR 600 MG TABCR PO ×2 (09:04→20:42)
[2021-02-21] MEDS: BARICITINIB 2 MG TABLET 4 MG PO (09:04)
[2021-02-21] MEDS: lisinopriL 20 MG TABLET 40 MG PO (09:04)
[2021-02-21] MEDS: metFORMIN HCL 500 MG TABLET 1000 MG PO ×2 (09:04→17:06)
[2021-02-21] MEDS: MAGNESIUM OXIDE 400 MG TABLET PO (09:05)
[2021-02-21] MEDS: DULoxetine HCL 30 MG CAPSULE.DR PO (09:05)
[2021-02-21] MEDS: amLODIPine BESYLATE 5 MG TABLET 10 MG PO (09:05)
[2021-02-21] MEDS: FERROUS SULFATE 324 MG TABLET PO (09:05)
[2021-02-21] MEDS: FONDAPARINUX SODIUM 2.5 MG/0.5 ML SYRINGE SUB-Q (09:06)
[2021-02-21] MEDS: ISOSORBIDE MONONITRATE 60 MG TAB.ER.24H 120 MG PO (09:06)
[2021-02-21] MEDS: PANTOPRAZOLE 40 MG TABLET PO ×2 (09:07→17:06)
[2021-02-21] MEDS: INSULIN ASPART (*BKC) 100 UNITS/ML 14 UNITS SUB-Q ×3 (09:07→17:07)
[2021-02-21] MEDS: ASPIRIN 81 MG ENTERIC TABLET PO (09:07)
[2021-02-21 09:16] LABS: Glucose Point of Care 159 mg/dl (65-105)
--- NOTE | 2021-02-21 11:20 | PM.PNCARD ---
Progress Note: A&P Assessment and Plan (1) Second degree AV block, Mobitz type I: Code(s): I44.1 - Atrioventricular block, second degree Status: Acute Assessment and Plan: Still w/ episodes of 2nd degree AV block type 1, after skipping a dose of metoprolol and reducing to 50 mg b.i.d.. Will hold until AV block improves, then resume at a lower dose. Watch for rebound sinus tachycardia or angina Follow on telemetry. It is reasonable to continue to hold metoprolol given conduction system disease and especially given COVID propensity to cause significant bradycardia also. (2) Coronary artery disease: Code(s): I25.10 - Atherosclerotic heart disease of [place] coronary artery without angina pectoris Status: Acute Assessment and Plan: History of CAD and Left anterior descending stents 2019, STEMI treated with balloon angioplasty at that time as well. Occasional atypical chest pain but basically stable. Continue aspirin, statin, ezetimibe, MARYURI-inhibitor etc.. (3) Pneumonia due to 2019 novel coronavirus: Code(s): U07.1 - COVID-19; J12.82 - Pneumonia due to coronavirus disease 2018 Status: Acute Assessment and Plan: On 4 L- 8 L of O2, sometimes more, treated per guidelines with dexamethasone and now baricitinib (Olumiant) (4) Lower extremity edema: Code(s): R60.0 - Localized edema Status: Acute Subjective Date/time seen: 02/21/21 11:20 Interval history: Follow-up for second-degree AV block type 1, in the setting of pneumonia due to COVID-19. Also: CAD with an anterior STEMI in January 2019 status post angioplasty of the Left anterior descending, Date of service 02/18/2021: Yesterday I held 1 dose of metoprolol then reduced the dose from 100 mg b.i.d. to: 50 mg b.i.d. Received 1 dose of Lasix yesterday p.o. for edema. Tele shos pt still having episodes of 2nd AV block type 1, HR 50's. Still occ SOB w/ paroxysms of coughing. Will start baricinib due to worsening O2 requirements ; needing a L high-flow nasal oxygen more frequently. Date of service 02/21/2021: Still having episodes type 1 second-degree AV block and bradycardia. He is short of breath no chest pain. No syncope or presyncope Review of Systems Constitutional: Constitutional: Reports fatigue, Reports lethargy and Reports weakness Eyes: Eyes: Reports no additional eye complaints ENT: Denies epistaxis and Denies nasal congestion Cardiovascular: Cardiovascular: Denies chest pain, Reports pedal edema, Reports leg edema, Denies lightheadedness, Denies palpitations, Reports dyspnea and Reports dyspnea on exertion Respiratory: Respiratory: Reports cough, Reports dyspnea and Reports dyspnea on exertion Gastrointestinal: Gastrointestinal: Denies abdominal pain and Denies hematochezia Genitourinary: Genitourinary: Denies hematuria and Denies dysuria Musculoskeletal: Musculoskeletal: Reports no additional musculoskeletal complaints and Denies back pain Integumentary/Breasts: Skin/Breast: Denies rash Neurologic: Denies behavioral changes, Denies confusion and Reports weakness Psychiatric: Psychiatric: Reports no additional psychiatric complaints, Denies behavioral changes and Denies confusion Endocrine: Endocrine: Reports fatigue and Denies palpitations Exam Const: General: no acute distress and uncomfortable; No confusion Orientation/consciousness: No confusion HENMT: General nose exam: no epistaxis Mouth: Yes moist mucous membranes Neck: Neck: supple Resp: Other: Noticeably short of breath Cardio: Rate: regular rate Rhythm: regular rhythm GI: Inspection: non-distended Skin: General skin exam: normal color and no rashes or lesions noted Neuro: General: No confusion Cognition (Neuro): normal cognition Speech: normal speech Motor exam (neuro): Normal motor muscle tone present throughout Extrem: General: edema Other: LE edema better, UE edema present Psych: Mental Stat
[2021-02-21] MEDS: INSULIN ASPART (*BKC) 100 UNITS/ML SUB-Q (12:44)
[2021-02-21 13:45] LABS: Glucose Point of Care 208 mg/dl (65-105)
--- NOTE | 2021-02-21 14:27 | PM.IMPN ---
Progress Note: A&P Assessment and Plan (1) Pneumonia due to 2019 novel coronavirus: Code(s): U07.1 - COVID-19; J12.82 - Pneumonia due to coronavirus disease 2019 Status: Acute Assessment and Plan: Patient diagnosed with COVID on 02/10 and results on the chart. Plasma given 02/13/21. He has completed 5 days of remdesivir; this was not extended due to his bradycardia. He remains on Decadron with Baricinib added 02/18 for worsening hypoxia. He also remains on albuterol HFA and Mucinex. D-dimer was greater than 20 but trending down now; CRP is better at 1.6. O2 weaned to 6L HFNC now. Wean O2 as tolerated. Encouraged IS use. Encouraged lying prone as much as possible. (2) Acute respiratory failure with hypoxia: Code(s): J96.01 - Acute respiratory failure with hypoxia Status: Acute Assessment and Plan: Related to above. Wean oxygen as tolerated (3) Diabetes: Code(s): E11.9 - Type 2 diabetes mellitus without complications Status: Acute Assessment and Plan: The patient's blood glucose was reviewed on 02/20 Glucose remains reasonably well controlled. Glucose this morning 188 so no change in Lantus. Continue AccuCheks covering with sliding scale. Hypoglycemia protocol available as needed. Continue current medications. (4) Coronary artery disease: Code(s): I25.10 - Atherosclerotic heart disease of [place] coronary artery without angina pectoris Status: Acute Assessment and Plan: Stable. Continue aspirin and lisinopril. Metoprolol resumed at lower dose. Patient allergic to statin therapy (although crestor listed on home med list?). He states the Cardiolgist has him on a 'small' dose of Crestor but the dose is listed as 20mg so will clarify this with his pharmacy befoer starting. History of CAD and left anterior descending stents 2019 STEMI treated with balloon angioplasty at that time as well (5) Hypertension: Code(s): I10 - Essential (primary) hypertension Status: Acute Assessment and Plan: Patient's blood pressure was reviewed on 02/19 Blood pressure remains well controlled. Will continue current medications with amlodipine, Imdur, and lisinopril. Metoprolol resumed this morning at lower dose (6) Sleep apnea: Code(s): G47.30 - Sleep apnea, unspecified Status: Acute Assessment and Plan: Patient refusing CPAP. Encourage PAP therapy. (7) Pancytopenia: Code(s): D61.818 - Other pancytopenia Status: Acute Assessment and Plan: WBC was 2300 on admisison but this has resolved. Probably related to the viral illness. Hgb 12.7 and has been stable since admission. [place] probably more chronic finding. Follow Platelet count was 56K on admission but improved to the 105K range before trending down. He states this is chronic and felt related to his cirrhosis. Follow on Arixtra (8) Cirrhosis: Code(s): K74.60 - Unspecified cirrhosis of liver Status: Acute Assessment and Plan: CT notes cirrhosis. INR has climbed to 1.6. Liver enzymes only mildly elevated at times. Tbili normal. Albumin was normal on admission. Follow. (9) Elevated d-dimer: Code(s): R79.89 - Other specified abnormal findings of blood chemistry Status: Acute Assessment and Plan: DDimer was significantly elevated. [place] related to COVID. CTA chest was negative for PE. LE venous doppler negative for DVT but does show superficial thrombosis of the bilateral gastrocnemius veins. Left hand was slightly swollen but LUE doppler negative for DVT but did show superficial thrombosis of the left cephalic vein. Katie had one dark stool and was found to have guaiac positive stools but patient having epistaxis which could provide a false positive test. Benefits of anticoagulation outweighs the risk so we started Arixtra. Hgb remining stable. Follow closely (10) Heart block: Code(s): I45.9 -
[2021-02-21] MEDS: SODIUM POLYSTYRENE SULFONONATE 15 GM/60 ML BTL PO (17:06)
[2021-02-21 18:17] LABS: Glucose Point of Care 191 mg/dl (65-105)
[2021-02-21 20:12] LABS: Glucose Point of Care 196 mg/dl (65-105)
[2021-02-21] MEDS: INSULIN GLARGINE (*BKC) 100 UNITS/ML 15 UNITS SUB-Q (20:42)
[2021-02-22] VITALS (14 sets, daily range): BP systolic 115–129; BP diastolic 53–69; PULSE 60–113; RESP 14–18; TEMP 36.4–37.1; O2SAT 90–100
[2021-02-22 05:50] LABS: Basophils Percent Auto 0.2 % (0.2-1.2); Eosinophils Percent Auto 0.6 % (0-4.4); Hematocrit 36.9 % (42.0-52.0); Hemoglobin 12.6 g/dL (14.0-18.0); Immature Granulocyte Absolute 0.07 K/mm3 (0.00-0.031); Immature Granulocyte Percent A 1.5 % (0-0.5); Lymphocytes Percent Auto 8.5 % (18.3-44.2); Mean Corpuscular HGB Conc 34.1 g/dl (32-36); Mean Corpuscular Hemoglobin 28.9 pg (26-34); Mean Corpuscular Volume 84.6 fl (80-100); Mean Platelet Volume 12.5 fl (7.4-10.4); Monocytes Absolute Auto 0.4 K/mm3 (0.1-0.6); Monocytes Percent Auto 7.8 % (2.6-8.5); Neutrophils Absolute Auto 3.9 K/mm3 (1.3-6.7); Neutrophils Percent Auto 81.4 % (45.5-73.1); Platelet Count Result 99 k/mm3 (150-375); Red Blood Count 4.36 M/mm3 (4.6-6.20); Red Cell Distribution Width 15.1 % (11.5-14.5); White Blood Count 4.7 K/mm3 (4.5-10.0)
[2021-02-22 06:09] LABS: Alanine Aminotransferase 90 U/L (4-50); Anion Gap 10 mmol/L (8-16); Aspartate Amino Transferase 81 U/L (17-59); Blood Urea Nitrogen 37 mg/dL (9-20); Calcium 8.8 mg/dL (8.4-10.2); Carbon Dioxide 25 mmol/L (22-30); Chloride 98 mmol/L (98-107); Estimated CRCL calculation 60 ml/min; Estimated Glomerular Filt Rate 59; Glucose 152 mg/dL (65-110); Potassium 4.9 mmol/L (3.4-5.0); Sodium 133 mmol/L (137-145)
[2021-02-22] MEDS: PANTOPRAZOLE 40 MG TABLET PO ×2 (08:47→17:04)
[2021-02-22] MEDS: lisinopriL 20 MG TABLET 40 MG PO (08:47)
[2021-02-22] MEDS: MAGNESIUM OXIDE 400 MG TABLET PO (08:47)
[2021-02-22] MEDS: metFORMIN HCL 500 MG TABLET 1000 MG PO ×2 (08:47→17:04)
[2021-02-22] MEDS: guaiFENesin 12 HR 600 MG TABCR PO ×2 (08:48→21:27)
[2021-02-22] MEDS: FERROUS SULFATE 324 MG TABLET PO (08:48)
[2021-02-22] MEDS: ISOSORBIDE MONONITRATE 60 MG TAB.ER.24H 120 MG PO (08:48)
[2021-02-22] MEDS: DULoxetine HCL 30 MG CAPSULE.DR PO (08:48)
[2021-02-22] MEDS: GABAPENTIN 300 MG CAPSULE 600 MG PO ×3 (08:48→17:04)
[2021-02-22] MEDS: FONDAPARINUX SODIUM 2.5 MG/0.5 ML SYRINGE SUB-Q (08:48)
[2021-02-22] MEDS: ASPIRIN 81 MG ENTERIC TABLET PO (08:49)
[2021-02-22] MEDS: BARICITINIB 2 MG TABLET 4 MG PO (08:49)
[2021-02-22] MEDS: amLODIPine BESYLATE 5 MG TABLET 10 MG PO (08:49)
[2021-02-22] MEDS: INSULIN ASPART (*BKC) 100 UNITS/ML 14 UNITS SUB-Q ×2 (08:58→12:59)
[2021-02-22] MEDS: ALBUTEROL SULFATE (*SP) INHALER 2 PUFF INHALATION ×3 (09:17→20:39)
[2021-02-22 09:41] LABS: Glucose Point of Care 147 mg/dl (65-105)
--- NOTE | 2021-02-22 09:52 | PM.PNCARD ---
Progress Note: A&P Assessment and Plan (1) Second degree AV block, Mobitz type I: Code(s): I44.1 - Atrioventricular block, second degree Status: Acute Assessment and Plan: Still w/ episodes of 2nd degree AV block type 1, after skipping a dose of metoprolol and reducing to 50 mg b.i.d.. Will hold until AV block improves, then resume at a lower dose. Watch for rebound sinus tachycardia or angina Follow on telemetry. It is reasonable to continue to hold metoprolol given conduction system disease and especially given COVID propensity to cause significant bradycardia also. (2) Coronary artery disease: Code(s): I25.10 - Atherosclerotic heart disease of [place] coronary artery without angina pectoris Status: Acute Assessment and Plan: History of CAD and Left anterior descending stents 2019, STEMI treated with balloon angioplasty at that time as well. Occasional atypical chest pain but basically stable. Continue aspirin, statin, ezetimibe, MARYURI-inhibitor etc.. (3) Pneumonia due to 2019 novel coronavirus: Code(s): U07.1 - COVID-19; J12.82 - Pneumonia due to coronavirus disease 2018 Status: Acute Assessment and Plan: On 4 L- 8 L of O2, sometimes more, treated per guidelines with dexamethasone and now baricitinib (Olumiant) Feeling better today than yesterday (4) Lower extremity edema: Code(s): R60.0 - Localized edema Status: Acute Subjective Date/time seen: 02/22/21 09:52 Interval history: Follow-up for second-degree AV block type 1, in the setting of pneumonia due to COVID-19. Also: CAD with an anterior STEMI in January 2019 status post angioplasty of the Left anterior descending, Date of service 02/18/2021: Yesterday I held 1 dose of metoprolol then reduced the dose from 100 mg b.i.d. to: 50 mg b.i.d. Received 1 dose of Lasix yesterday p.o. for edema. Tele shos pt still having episodes of 2nd AV block type 1, HR 50's. Still occ SOB w/ paroxysms of coughing. Will start baricinib due to worsening O2 requirements ; needing a L high-flow nasal oxygen more frequently. Date of service 02/21/2021: Still having episodes type 1 second-degree AV block and bradycardia. He is short of breath no chest pain. No syncope or presyncope Date of service 02/22/2021: Now in sinus tachycardia with beta-micki withdrawal. No chest pain. Breathing is better though. Review of Systems Constitutional: Constitutional: Reports fatigue, Reports lethargy and Reports weakness Eyes: Eyes: Reports no additional eye complaints ENT: Denies epistaxis and Denies nasal congestion Cardiovascular: Cardiovascular: Denies chest pain, Reports pedal edema, Reports leg edema, Denies lightheadedness, Denies palpitations, Reports dyspnea and Reports dyspnea on exertion Respiratory: Respiratory: Reports cough, Reports dyspnea and Reports dyspnea on exertion Gastrointestinal: Gastrointestinal: Denies abdominal pain and Denies hematochezia Genitourinary: Genitourinary: Denies hematuria and Denies dysuria Musculoskeletal: Musculoskeletal: Reports no additional musculoskeletal complaints and Denies back pain Integumentary/Breasts: Skin/Breast: Denies rash Neurologic: Denies behavioral changes, Denies confusion and Reports weakness Psychiatric: Psychiatric: Reports no additional psychiatric complaints, Denies behavioral changes and Denies confusion Endocrine: Endocrine: Reports fatigue and Denies palpitations Exam Const: General: no acute distress and uncomfortable; No confusion Orientation/consciousness: No confusion Other: Paroxysms of coughing requiring higher doses of oxygen at time HENMT: General nose exam: no epistaxis Mouth: Yes moist mucous membranes Eyes: EOM: EOMs intact bilaterally Neck: Neck: supple Thyroid: thyroid normal Carotids: no bruits Resp: Auscultation: rales, wheezes and diminished lung sounds Other: Noticeably short of breath Cardio: Rate: regular r
--- NOTE | 2021-02-22 11:31 | PM.IMPN ---
Progress Note: A&P Assessment and Plan (1) Pneumonia due to 2019 novel coronavirus: Code(s): U07.1 - COVID-19; J12.82 - Pneumonia due to coronavirus disease 2019 Status: Acute Assessment and Plan: Patient diagnosed with COVID on 02/10 and results on the chart. Plasma given 02/13/21. He has completed 5 days of remdesivir; this was not extended due to his bradycardia. He remains on Decadron with Baricinib added 02/18 for worsening hypoxia. He also remains on albuterol HFA and Mucinex. D-dimer was greater than 20 but trending down now; CRP is better at 1.6. O2 weaned to 4L HFNC now. Wean O2 as tolerated. Encouraged IS use. Encouraged lying prone as much as possible. (2) Acute respiratory failure with hypoxia: Code(s): J96.01 - Acute respiratory failure with hypoxia Status: Acute Assessment and Plan: Related to above. Wean oxygen as tolerated (3) Diabetes: Code(s): E11.9 - Type 2 diabetes mellitus without complications Status: Acute Assessment and Plan: The patient's blood glucose was reviewed on Glucose remains reasonably well controlled. and at goal. so no change in Lantus. Continue AccuCheks covering with sliding scale. Hypoglycemia protocol available as needed. Continue current medications. (4) Coronary artery disease: Code(s): I25.10 - Atherosclerotic heart disease of [place] coronary artery without angina pectoris Status: Acute Assessment and Plan: Stable. Continue aspirin and lisinopril. Metoprolol resumed at lower dose. Patient allergic to statin therapy (although crestor listed on home med list?). He states the Cardiolgist has him on a 'small' dose of Crestor but the dose is listed as 20mg so will clarify this with his pharmacy befoer starting. History of CAD and left anterior descending stents 2019 STEMI treated with balloon angioplasty at that time as well (5) Hypertension: Code(s): I10 - Essential (primary) hypertension Status: Acute Assessment and Plan: Patient's blood pressure was reviewed on 02/19 Blood pressure remains well controlled. Will continue current medications with amlodipine, Imdur, and lisinopril. Metoprolol Currently on hold due to second-degree AV block type 1 intermittently (6) Sleep apnea: Code(s): G47.30 - Sleep apnea, unspecified Status: Acute Assessment and Plan: Patient refusing CPAP. Encourage PAP therapy. (7) Pancytopenia: Code(s): D61.818 - Other pancytopenia Status: Acute Assessment and Plan: WBC was 2300 on admisison but this has resolved. Probably related to the viral illness. Hgb 12.7 and has been stable since admission. [place] probably more chronic finding. Follow Platelet count was 56K on admission but improved to the 105K range before trending down. He states this is chronic and felt related to his cirrhosis. Follow on Arixtra (8) Cirrhosis: Code(s): K74.60 - Unspecified cirrhosis of liver Status: Acute Assessment and Plan: CT notes cirrhosis. INR has climbed to 1.6. Liver enzymes only mildly elevated at times. Tbili normal. Albumin was normal on admission. Follow. (9) Elevated d-dimer: Code(s): R79.89 - Other specified abnormal findings of blood chemistry Status: Acute Assessment and Plan: DDimer was significantly elevated. [place] related to COVID. CTA chest was negative for PE. LE venous doppler negative for DVT but does show superficial thrombosis of the bilateral gastrocnemius veins. Left hand was slightly swollen but LUE doppler negative for DVT but did show superficial thrombosis of the left cephalic vein. Katie had one dark stool and was found to have guaiac positive stools but patient having epistaxis which could provide a false positive test. Benefits of anticoagulation outweighs the risk so we started Arixtra. Hgb remining stable. Follow closely (10) Heart block:
--- NOTE | 2021-02-22 12:56 | PC.NURSE ---
This patient, Bhanu Plaza, was transferred to [facility] on 02/22/21 at 1256. Personal belongings sent with patient. Report given to PRIMO Uriarte. Appropriate documentation sent with patient.
[2021-02-22] MEDS: INSULIN ASPART (*BKC) 100 UNITS/ML SUB-Q (12:59)
[2021-02-22 13:06] LABS: Glucose Point of Care 231 mg/dl (65-105)
--- NOTE | 2021-02-22 13:06 | ADMGEN ---
This patient, Bhanu Plaza, was admitted to [facility] Surg Room 314-02 from IMU 202/ at 1250. Patient/family oriented to hospital policies and general routines including ID bracelet, bed and alarms, visiting hours, pain management, procedures, bathroom and other care routines, personal items, smoking policy, room service/diet, and visiting hours. Information on how to activate the Rapid Response Team has been discussed. Patient/Family are encouraged to report perceived risks to care and to ask questions if they do not understand what they are told or what they should do.
[2021-02-22] MEDS: GLUCOSE ORAL GEL 15 GM OF GLUCSE IN 37.5 GM TUBE PO ×2 (16:32→16:55)
[2021-02-22 16:38] LABS: Glucose Point of Care 58 mg/dl (65-105)
[2021-02-22 16:50] LABS: Glucose Point of Care 48 mg/dl (65-105)
[2021-02-22 17:27] LABS: Glucose Point of Care 97 mg/dl (65-105)
[2021-02-22] MEDS: INSULIN GLARGINE (*BKC) 100 UNITS/ML 15 UNITS SUB-Q (21:27)
[2021-02-22 21:51] LABS: Glucose Point of Care 153 mg/dl (65-105)
[2021-02-23] VITALS (18 sets, daily range): BP systolic 109–137; BP diastolic 56–75; PULSE 85–117; RESP 14–20; TEMP 36.1–36.8; O2SAT 89–100
[2021-02-23] MEDS: ACETAMINOPHEN 325 MG TABLET 650 MG PO ×2 (03:37→22:06)
[2021-02-23 06:51] LABS: Basophils Percent Auto 0.4 % (0.2-1.2); Eosinophils Absolute Auto 0.1 K/mm3 (0-0.3); Eosinophils Percent Auto 2.3 % (0-4.4); Hematocrit 39.4 % (42.0-52.0); Hemoglobin 13.4 g/dL (14.0-18.0); Immature Granulocyte Absolute 0.06 K/mm3 (0.00-0.031); Immature Granulocyte Percent A 1.1 % (0-0.5); Immature Platelet Fraction Pct 9.4 % (0.9-11.2); Lymphocytes Absolute Auto 0.73 K/mm3 (0.9-3.2); Lymphocytes Percent Auto 12.9 % (18.3-44.2); Mean Corpuscular Hemoglobin 28.7 pg (26-34); Mean Corpuscular Volume 84.4 fl (80-100); Mean Platelet Volume 12.6 fl (7.4-10.4); Monocytes Absolute Auto 0.5 K/mm3 (0.1-0.6); Monocytes Percent Auto 8.5 % (2.6-8.5); Neutrophils Absolute Auto 4.2 K/mm3 (1.3-6.7); Neutrophils Percent Auto 74.8 % (45.5-73.1); Red Blood Count 4.67 M/mm3 (4.6-6.20); Red Cell Distribution Width 15.4 % (11.5-14.5); White Blood Count 5.6 K/mm3 (4.5-10.0)
[2021-02-23 07:02] LABS: Alanine Aminotransferase 124 U/L (4-50); Albumin Level 3.1 g/dL (3.5-5.1); Alkaline Phosphatase 170 U/L (38-126); Anion Gap 6 mmol/L (8-16); Aspartate Amino Transferase 92 U/L (17-59); Bilirubin,Total 1.9 mg/dL (0.2-1.3); Blood Urea Nitrogen 32 mg/dL (9-20); Calcium 9.1 mg/dL (8.4-10.2); Carbon Dioxide 29 mmol/L (22-30); Chloride 95 mmol/L (98-107); Estimated CRCL calculation 60 ml/min; Estimated Glomerular Filt Rate 59; Glucose 99 mg/dL (65-110); Potassium 5.3 mmol/L (3.4-5.0); Sodium 130 mmol/L (137-145)
[2021-02-23 07:04] LABS: Platelet Count Result 77 k/mm3 (150-375)
[2021-02-23] MEDS: ALBUTEROL SULFATE (*SP) INHALER 2 PUFF INHALATION ×4 (08:11→21:01)
[2021-02-23 08:20] LABS: Glucose Point of Care 99 mg/dl (65-105)
[2021-02-23] MEDS: guaiFENesin 12 HR 600 MG TABCR PO ×2 (09:29→21:55)
[2021-02-23] MEDS: ISOSORBIDE MONONITRATE 60 MG TAB.ER.24H 120 MG PO (09:29)
[2021-02-23] MEDS: amLODIPine BESYLATE 5 MG TABLET 10 MG PO (09:29)
[2021-02-23] MEDS: ASPIRIN 81 MG ENTERIC TABLET PO (09:29)
[2021-02-23] MEDS: BARICITINIB 2 MG TABLET 4 MG PO (09:29)
[2021-02-23] MEDS: DULoxetine HCL 30 MG CAPSULE.DR PO (09:29)
[2021-02-23] MEDS: FERROUS SULFATE 324 MG TABLET PO (09:29)
[2021-02-23] MEDS: metFORMIN HCL 500 MG TABLET 1000 MG PO ×2 (09:29→17:14)
[2021-02-23] MEDS: GABAPENTIN 300 MG CAPSULE 600 MG PO ×3 (09:30→17:14)
[2021-02-23] MEDS: MAGNESIUM OXIDE 400 MG TABLET PO (09:30)
[2021-02-23] MEDS: lisinopriL 20 MG TABLET 40 MG PO (09:30)
[2021-02-23] MEDS: PANTOPRAZOLE 40 MG TABLET PO ×2 (09:30→17:14)
--- NOTE | 2021-02-23 09:40 | PM.IMPN ---
Progress Note: A&P Assessment and Plan (1) Pneumonia due to 2019 novel coronavirus: Code(s): U07.1 - COVID-19; J12.82 - Pneumonia due to coronavirus disease 2019 Status: Acute Assessment and Plan: Patient diagnosed with COVID on 02/10 and results on the chart. Plasma given 02/13/21. He has completed 5 days of remdesivir; this was not extended due to his bradycardia. He completed Decadron on 02/21. He remains on Baricinib added 02/18 for worsening hypoxia. He also remains on albuterol HFA and Mucinex. D-dimer was greater than 20 but trending down now; CRP also has been trending down. O2 weaned to 3.5L HFNC now. Wean O2 as tolerated. Encouraged IS use. Encouraged lying prone as much as possible. (2) Acute respiratory failure with hypoxia: Code(s): J96.01 - Acute respiratory failure with hypoxia Status: Acute Assessment and Plan: Related to above. Wean oxygen as tolerated (3) Diabetes: Code(s): E11.9 - Type 2 diabetes mellitus without complications Status: Acute Assessment and Plan: The patient's blood glucose was reviewed on 02/23 Glucose dropped to 48 yesterday afternoon probably contributiing to his symptoms yesterday. Glucose was 99 this morning. Continue AccuCheks covering with sliding scale. Hypoglycemia protocol available as needed. Continue current medications but will decrease Lantus at night. (4) Coronary artery disease: Code(s): I25.10 - Atherosclerotic heart disease of [place] coronary artery without angina pectoris Status: Acute Assessment and Plan: History of CAD and left anterior descending stents 2019 STEMI treated with balloon angioplasty. Stable. Continue aspirin, Imdur and lisinopril. Patient allergic to statin therapy (although Crestor listed on home med list?). He states the Straightening Machine Operator has him on a 'small' dose of Crestor but the dose is listed as 20mg so will clarify this with his pharmacy before starting. LFTs higher so will hold statin therapy anyway. Resume Zetia. (5) Hypertension: Code(s): I10 - Essential (primary) hypertension Status: Acute Assessment and Plan: Patient's blood pressure was reviewed on 02/23 Blood pressure remains well controlled. Will continue current medications with amlodipine, Imdur, and lisinopril. Metoprolol currently on hold due to intermitteny second-degree AV block type 1. (6) Sleep apnea: Code(s): G47.30 - Sleep apnea, unspecified Status: Acute Assessment and Plan: Patient refusing CPAP. Encourage PAP therapy. (7) Pancytopenia: Code(s): D61.818 - Other pancytopenia Status: Acute Assessment and Plan: WBC was 2300 on admisison but this has resolved. Probably related to the viral illness. Hgb 12.7 and has been stable since admission. [place] probably more chronic finding. Follow Platelet count was 56K on admission but improved to the 105K range before trending down. He states this is chronic and felt related to his cirrhosis. Follow closely on Arixtra (8) Cirrhosis: Code(s): K74.60 - Unspecified cirrhosis of liver Status: Acute Assessment and Plan: CT notes cirrhosis. INR has climbed to 1.6. Liver enzymes only mildly elevated but climbing. Tbili now 1.6. Albumin was normal on admission. Follow. (9) Elevated d-dimer: Code(s): R79.89 - Other specified abnormal findings of blood chemistry Status: Acute Assessment and Plan: DDimer was significantly elevated. [place] related to COVID. CTA chest was negative for PE. LE venous doppler negative for DVT but does show superficial thrombosis of the bilateral gastrocnemius veins. Left hand was slightly swollen but LUE doppler negative for DVT but did show superficial thrombosis of the left cephalic vein. Katie had one dark stool and was found to have guaiac positive stools but patient having epistaxis which could provide a false positive test. Bene
[2021-02-23 11:22] LABS: Potassium 5.2 mmol/L (3.4-5.0)
[2021-02-23 11:57] LABS: Cortisol Random 9.44 ug/dL
[2021-02-23 12:02] LABS: Glucose Point of Care 183 mg/dl (65-105)
[2021-02-23] MEDS: INSULIN ASPART (*BKC) 100 UNITS/ML 14 UNITS SUB-Q ×2 (12:19→17:14)
[2021-02-23 16:45] LABS: Glucose Point of Care 162 mg/dl (65-105)
[2021-02-23] MEDS: SODIUM POLYSTYRENE SULFONONATE 15 GM/60 ML BTL PO (19:17)
[2021-02-24] VITALS (12 sets, daily range): BP systolic 95–124; BP diastolic 50–72; PULSE 62–119; RESP 18–20; TEMP 36.3–36.4; O2SAT 92–100
[2021-02-24 06:05] LABS: Basophils Percent Auto 0.2 % (0.2-1.2); Eosinophils Absolute Auto 0.1 K/mm3 (0-0.3); Eosinophils Percent Auto 2.2 % (0-4.4); Hematocrit 38.8 % (42.0-52.0); Hemoglobin 13.3 g/dL (14.0-18.0); Immature Granulocyte Absolute 0.08 K/mm3 (0.00-0.031); Immature Granulocyte Percent A 1.8 % (0-0.5); Immature Platelet Fraction Pct 9.9 % (0.9-11.2); Lymphocytes Absolute Auto 0.62 K/mm3 (0.9-3.2); Lymphocytes Percent Auto 13.7 % (18.3-44.2); Mean Corpuscular HGB Conc 34.3 g/dl (32-36); Mean Corpuscular Hemoglobin 29.1 pg (26-34); Mean Corpuscular Volume 84.9 fl (80-100); Monocytes Absolute Auto 0.3 K/mm3 (0.1-0.6); Monocytes Percent Auto 6.7 % (2.6-8.5); Neutrophils Absolute Auto 3.4 K/mm3 (1.3-6.7); Neutrophils Percent Auto 75.4 % (45.5-73.1); Platelet Count Result 71 k/mm3 (150-375); Red Blood Count 4.57 M/mm3 (4.6-6.20); Red Cell Distribution Width 15.4 % (11.5-14.5); White Blood Count 4.5 K/mm3 (4.5-10.0)
[2021-02-24 06:18] LABS: Glucose Point of Care 71 mg/dl (65-105)
[2021-02-24 06:21] LABS: Alanine Aminotransferase 133 U/L (4-50); Alkaline Phosphatase 175 U/L (38-126); Anion Gap 4 mmol/L (8-16); Aspartate Amino Transferase 90 U/L (17-59); Bilirubin,Total 1.9 mg/dL (0.2-1.3); Blood Urea Nitrogen 27 mg/dL (9-20); Carbon Dioxide 32 mmol/L (22-30); Chloride 95 mmol/L (98-107); Estimated CRCL calculation 60 ml/min; Estimated Glomerular Filt Rate 59; Glucose 115 mg/dL (65-110); Magnesium 1.6 mg/dL (1.6-2.3); Phosphorus 3.9 mg/dL (2.5-4.5); Sodium 131 mmol/L (137-145)
[2021-02-24 07:50] LABS: Glucose Point of Care 88 mg/dl (65-105)
[2021-02-24] MEDS: ALBUTEROL SULFATE (*SP) INHALER 2 PUFF INHALATION ×4 (08:43→20:20)
[2021-02-24] MEDS: BARICITINIB 2 MG TABLET 4 MG PO (09:04)
[2021-02-24] MEDS: FONDAPARINUX SODIUM 2.5 MG/0.5 ML SYRINGE SUB-Q (09:04)
[2021-02-24] MEDS: metFORMIN HCL 500 MG TABLET 1000 MG PO ×2 (09:05→17:34)
[2021-02-24] MEDS: ASPIRIN 81 MG ENTERIC TABLET PO (09:05)
[2021-02-24] MEDS: amLODIPine BESYLATE 5 MG TABLET 10 MG PO (09:05)
[2021-02-24] MEDS: GABAPENTIN 300 MG CAPSULE 600 MG PO ×3 (09:05→17:35)
[2021-02-24] MEDS: FERROUS SULFATE 324 MG TABLET PO (09:05)
[2021-02-24] MEDS: ISOSORBIDE MONONITRATE 60 MG TAB.ER.24H 120 MG PO (09:06)
[2021-02-24] MEDS: MAGNESIUM OXIDE 400 MG TABLET PO (09:06)
[2021-02-24] MEDS: guaiFENesin 12 HR 600 MG TABCR PO ×2 (09:06→20:42)
[2021-02-24] MEDS: DULoxetine HCL 30 MG CAPSULE.DR PO (09:06)
[2021-02-24] MEDS: PANTOPRAZOLE 40 MG TABLET PO ×2 (09:06→17:36)
[2021-02-24] MEDS: EZETIMIBE 10 MG TABLET PO (09:06)
[2021-02-24] MEDS: MAGNESIUM SULF 1 GM/D5W 100 ML 1 GM/100 ML BAG IVPB (09:07)
--- NOTE | 2021-02-24 09:30 | PM.IMPN ---
Progress Note: A&P Assessment and Plan (1) Pneumonia due to 2019 novel coronavirus: Code(s): U07.1 - COVID-19; J12.82 - Pneumonia due to coronavirus disease 2019 Status: Acute Assessment and Plan: Patient diagnosed with COVID on 02/10 and results on the chart. Plasma given 02/13/21. He has completed 5 days of remdesivir; this was not extended due to his bradycardia. He completed Decadron on 02/21. He remains on Baricinib added 02/18 for worsening hypoxia. He also remains on albuterol HFA and Mucinex. D-dimer was greater than 20 but trending down now; CRP also has been trending down. O2 weaned to 3.5L HFNC now. Wean O2 as tolerated. Encouraged IS use. Encouraged lying prone as much as possible. Home O2 evaluation with plan discharged in 1-2 days (2) Acute respiratory failure with hypoxia: Code(s): J96.01 - Acute respiratory failure with hypoxia Status: Acute Assessment and Plan: Related to above. Wean oxygen as tolerated (3) Elevated d-dimer: Code(s): R79.89 - Other specified abnormal findings of blood chemistry Status: Acute Assessment and Plan: DDimer was significantly elevated. [place] related to COVID. CTA chest was negative for PE. LE venous doppler negative for DVT but does show superficial thrombosis of the bilateral gastrocnemius veins. Left hand was slightly swollen but LUE doppler negative for DVT but did show superficial thrombosis of the left cephalic vein. Patient had one dark stool and was found to have guaiac positive stools but patient was having epistaxis which could provide a false positive test. Benefits of anticoagulation outweighed the risk so we started Arixtra. Hgb remaining stable. We repeated dopplers: Bilateral UE = persistent thrombosis of the left cephalic vein; Bilateral LE = venous thrombosis of the right peroneal and bilateral gastrocnemius veins. Will add warm compresses. Hematology consult since patinent high risk for propagation and also increased bleeding risk. (4) Heart block: Code(s): I45.9 - Conduction disorder, unspecified Status: Acute Assessment and Plan: Tele showing occasional second-degree AVB type 1. Patient is asymptomatic from this. Could be partially related to the Remdesivir but this has been stopped now. Could also be related to that fact the patient is refusing his CPAP. Cardiology following and recommended decreasing metoprolol which was done (100mg Q12hr to 25mg Q12h). He continued to have these findings so metoprolol held. Continue to monitor on tele. (5) Diabetes: Code(s): E11.9 - Type 2 diabetes mellitus without complications Status: Acute Assessment and Plan: The patient's blood glucose was reviewed on 02/24 Glucose dropped to 48 02/22 probably contributing to his symptoms on that day. Lantus was decreased and Glucose 115 this morning. Continue AccuCheks covering with sliding scale. Hypoglycemia protocol available as needed. Continue current medications. (6) Coronary artery disease: Code(s): I25.10 - Atherosclerotic heart disease of [place] coronary artery without angina pectoris Status: Acute Assessment and Plan: History of CAD and left anterior descending stents 2019 STEMI treated with balloon angioplasty. Stable. Continue aspirin, Imdur and lisinopril. Patient allergic to statin therapy (although Crestor listed on home med list?). He states his Leather Heel Breaster has him on a 'small' dose of Crestor but the dose is listed as 20mg so will clarify this with his pharmacy before starting. LFTs higher so will hold statin therapy anyway. Continue Zetia. (7) Hypertension: Code(s): I10 - Essential (primary) hypertension Status: Acute Assessment and Plan: Patient's blood pressure was reviewed on 02/24 Blood pressure remains well controlled. Will continue current medications with amlodipine, Imdur, and lisinopril. Metoprolol currently on hold due to in
--- NOTE | 2021-02-24 10:16 | PM.PNCARD ---
Progress Note: A&P Assessment and Plan (1) Second degree AV block, [place] type I: Code(s): I44.1 - Atrioventricular block, second degree Status: Acute Assessment and Plan: Initially with episodes of 2nd degree AV block type 1, after skipping a dose of metoprolol and reducing to 50 mg b.i.d.. Second degree AV block improved now experiencing rebound tachycardia w/ 1st degree AV block with rate in the 120's - will restart low dose metoprolol 6.25mg b.i.d. Follow on telemetry. (2) Coronary artery disease: Code(s): I25.10 - Atherosclerotic heart disease of [place] coronary artery without angina pectoris Status: Acute Assessment and Plan: History of CAD and Left anterior descending stents 2019, STEMI treated with balloon angioplasty at that time as well. Occasional atypical chest pain but basically stable. Continue aspirin, statin, ezetimibe, MARYURI-inhibitor, restart BB (3) Pneumonia due to 2019 novel coronavirus: Code(s): U07.1 - COVID-19; J12.82 - Pneumonia due to coronavirus disease 2018 Status: Acute Assessment and Plan: On 4 L- 8 L of O2, sometimes more, treated per guidelines with dexamethasone and now baricitinib (Olumiant). Breathing comfortably but still requiring 8L O2. (4) Lower extremity edema: Code(s): R60.0 - Localized edema Status: Acute Assessment and Plan: This has resolved Subjective Date/time seen: 02/24/21 10:16 Interval history: Follow-up for second-degree AV block type 1, in the setting of pneumonia due to COVID-19. Also: CAD with an anterior STEMI in January 2019 status post angioplasty of the Left anterior descending, Date of service 02/18/2021: Yesterday I held 1 dose of metoprolol then reduced the dose from 100 mg b.i.d. to: 50 mg b.i.d. Received 1 dose of Lasix yesterday p.o. for edema. Tele shos pt still having episodes of 2nd AV block type 1, HR 50's. Still occ SOB w/ paroxysms of coughing. Will start baricinib due to worsening O2 requirements ; needing a L high-flow nasal oxygen more frequently. Date of service 02/21/2021: Still having episodes type 1 second-degree AV block and bradycardia. He is short of breath no chest pain. No syncope or presyncope Date of service 02/22/2021: Now in sinus tachycardia with beta-micki withdrawal. No chest pain. Breathing is better though. Date of service 02/24/2021: Remains in sinus tachycardia today Review of Systems Constitutional: Constitutional: Reports fatigue, Reports lethargy and Reports weakness Eyes: Eyes: Reports no additional eye complaints ENT: Denies epistaxis and Denies nasal congestion Cardiovascular: Cardiovascular: Denies chest pain, Reports pedal edema, Reports leg edema, Denies lightheadedness, Denies palpitations, Reports dyspnea and Reports dyspnea on exertion Respiratory: Respiratory: Reports cough, Reports dyspnea and Reports dyspnea on exertion Gastrointestinal: Gastrointestinal: Denies abdominal pain and Denies hematochezia Genitourinary: Genitourinary: Denies hematuria and Denies dysuria Musculoskeletal: Musculoskeletal: Reports no additional musculoskeletal complaints and Denies back pain Integumentary/Breasts: Skin/Breast: Denies rash Neurologic: Denies behavioral changes, Denies confusion and Reports weakness Psychiatric: Psychiatric: Reports no additional psychiatric complaints, Denies behavioral changes and Denies confusion Endocrine: Endocrine: Reports fatigue and Denies palpitations Exam Const: General: no acute distress and uncomfortable; No confusion Orientation/consciousness: No confusion Other: Pleasant older gentleman sitting comfortably on the side of the bed. Alert and oriented. HENMT: General nose exam: no epistaxis Mouth: Yes moist mucous membranes Eyes: EOM: EOMs intact bilaterally Neck: Neck: supple Thyroid: thyroid normal Carotids: no bruits Resp: Auscultation: rales, wheezes and diminished lung sounds
--- NOTE | 2021-02-24 10:27 | ECG_ITS ---
Measurements Intervals [place] Rate: 105 P: -3 IL: 214 QRS: -54 QRSD: 118 T: 106 QT: 344 QTc: 456 Interpretive Statements SINUS TACHYCARDIA WITH FIRST DEGREE AV BLOCK LEFT ANTERIOR FASCICULAR BLOCK LEFT VENTRICULAR HYPERTROPHY AND ST-T CHANGE MINIMAL Q WAVES- HIGH LATERAL LEADS CANNOT RULE OUT SEPTAL INFARCT, AGE INDETERMINATE ABNORMAL ECG Electronically Signed On 02-24-2021 15:37:59 CDT by Hayder Shay D.O.
[2021-02-24 12:11] LABS: Glucose Point of Care 201 mg/dl (65-105)
[2021-02-24] MEDS: INSULIN ASPART (*BKC) 100 UNITS/ML 14 UNITS SUB-Q (12:30)
[2021-02-24] MEDS: INSULIN ASPART (*BKC) 100 UNITS/ML SUB-Q (12:31)
[2021-02-24 16:56] LABS: Glucose Point of Care 127 mg/dl (65-105)
--- NOTE | 2021-02-24 17:55 | PDONCCN ---
HPI - Date of Consult Date/Time: 02/24/21 17:55 Requesting Physician: Mindy Kumar PA-C Primary Care Provider: [facility] - Consult Narrative Reason for consult: Thrombocytopenia and DVT Narrative: Bhanu Plaza is a 71 year old male with history of coronary artery disease status post coronary artery stent placement 3 years ago. Patient was on Plavix that was discontinued about 3 months ago. Patient also has a history of hyperlipidemia and COVID infection early this year. He came into the hospital with worsening of shortness of breath along with cough with brownish sputum. He denies any fevers and chills but has been feeling tired and fatigued. His oxygen saturation was low and chest x-ray was done that showed diffuse COVID-19 pneumonia like infiltrates. Patient has a history of nonalcoholic liver disease with resultant thrombocytopenia. [place] [id number] on admission. CTA chest showed no PE but mild mediastinal and bilateral hilar lymphadenopathy likely reactive along with liver cirrhosis and portal hypertension. Doppler study shows superficial thrombosis of the bilateral gastrocnemius vein. Upper extremity Doppler study shows thrombosis of the left cephalic vein. Repeat Doppler study of lower extremities showed venous thrombosis of the right peroneal and bilateral gastrocnemius vein. Patient was started on low-dose Arixtra. He denies any bleeding and bruising. Patient denies any previous history of thromboembolic events including stroke and pulmonary embolism. Review of Systems - Review of Systems All systems reviewed & are unremarkable except as noted in HPI and bel - Neurologic Reports system reviewed and no additional complaints, except as documented, Reports weakness, Denies behavioral changes, Denies confusion [facility] Medical History: Medical History (Last Updated 02/17/21 @ 14:51 by Maddy Ruiz MD) Coronary artery disease And [facility]2019 presented w/ anterior STEMI due to abrupt occlusion of the distal LAD stent treated by Dr. Jasso with plain old balloon angioplasty. Obstructive sleep apnea Second degree AV block, [place]itz type I Family History: Family History (Last Updated 02/17/21 @ 14:52 by Maddy Ruiz MD) Other Family history normal - Social History Social History: Social History (Last Reviewed 02/17/21 @ 14:51 by Maddy Ruiz MD) Gender Identity: Gender identity (if verbalized by the patient): Male Alcohol Use: Alcohol intake: never Substance Use: Substance use: never Others: Spiritual care concerns: No Living Arrangements: Living arrangements: with family Smoking Status: Smoking status: Never smoker Meds Home Medications Medication Instructions Recorded Confirmed Type amlodipine 10 mg PO DAILY 02/13/21 02/13/21 History aspirin 81 mg PO DAILY 02/13/21 02/13/21 History blood-glucose sensor [Freestyle 02/13/21 02/13/21 History Navigator Gluc Sens] carboxymethylcellulose sodium 1 drp EACH EYE QID PRN 02/13/21 02/13/21 History docosahexaenoic acid-epa [Fish Oil 2 cap PO BID 02/13/21 02/13/21 History (with DHA-EPA)] duloxetine 30 mg PO DAILY 02/13/21 02/13/21 History empagliflozin 25 mg PO DAILY 02/13/21 02/13/21 History ezetimibe 10 mg PO DAILY 02/13/21 02/13/21 History ferrous sulfate 325 mg PO DAILY 02/13/21 02/13/21 History gabapentin 600 mg PO TID 02/13/21 02/13/21 History insulin regular hum U-500 conc 40 unit SUBCUT HS 02/13/21 02/13/21 History [Humulin R U-500 (Conc) Kwikpen] insulin regular hum U-500 conc 60 unit SUBCUT AC 02/13/21 02/13/21 History [Humulin R U-500 (Conc) Kwikpen] isosorbide mononitrate 120 mg PO DAILY 02/13/21 02/13/21 History lisinopril 40 mg PO DAILY 02/13/21 02/13/21 History metformin 1,000 mg PO BID 02/13/21 02/13/21 History methocarbamol 750 mg PO BID 02/13/21 02/13/21 Histo
[2021-02-24] MEDS: METOPROLOL TARTRATE 6.25 MG TABLET PO (20:42)
[2021-02-24 21:40] LABS: Glucose Point of Care 134 mg/dl (65-105)
[2021-02-24] MEDS: INSULIN GLARGINE (*BKC) 100 UNITS/ML 12 UNITS SUB-Q (23:45)
[2021-02-25] VITALS (17 sets, daily range): BP systolic 111–114; BP diastolic 47–58; PULSE 44–113; RESP 18–20; TEMP 36.2–36.6; O2SAT 91–97
[2021-02-25 06:17] LABS: Basophils Percent Auto 0.2 % (0.2-1.2); Eosinophils Absolute Auto 0.1 K/mm3 (0-0.3); Eosinophils Percent Auto 1.7 % (0-4.4); Hematocrit 37.4 % (42.0-52.0); Hemoglobin 12.6 g/dL (14.0-18.0); Immature Granulocyte Absolute 0.07 K/mm3 (0.00-0.031); Immature Granulocyte Percent A 1.3 % (0-0.5); Lymphocytes Absolute Auto 0.68 K/mm3 (0.9-3.2); Mean Corpuscular HGB Conc 33.7 g/dl (32-36); Mean Platelet Volume 12.7 fl (7.4-10.4); Monocytes Absolute Auto 0.4 K/mm3 (0.1-0.6); Monocytes Percent Auto 7.3 % (2.6-8.5); Neutrophils Percent Auto 76.5 % (45.5-73.1); Platelet Count Result 81 k/mm3 (150-375); Red Blood Count 4.35 M/mm3 (4.6-6.20); Red Cell Distribution Width 15.4 % (11.5-14.5); White Blood Count 5.2 K/mm3 (4.5-10.0)
[2021-02-25 06:35] LABS: Alanine Aminotransferase 113 U/L (4-50); Albumin Level 2.9 g/dL (3.5-5.1); Alkaline Phosphatase 168 U/L (38-126); Anion Gap 6 mmol/L (8-16); Aspartate Amino Transferase 70 U/L (17-59); Bilirubin,Total 1.3 mg/dL (0.2-1.3); Blood Urea Nitrogen 25 mg/dL (9-20); Calcium 8.6 mg/dL (8.4-10.2); Carbon Dioxide 29 mmol/L (22-30); Chloride 96 mmol/L (98-107); Estimated CRCL calculation 65 ml/min; Estimated Glomerular Filt Rate > 60; Glucose 89 mg/dL (65-110); Magnesium 1.7 mg/dL (1.6-2.3); Potassium 4.7 mmol/L (3.4-5.0); Sodium 131 mmol/L (137-145)
[2021-02-25 08:35] LABS: Glucose Point of Care 92 mg/dl (65-105)
[2021-02-25] MEDS: MAGNESIUM OXIDE 400 MG TABLET PO (09:18)
[2021-02-25] MEDS: ISOSORBIDE MONONITRATE 60 MG TAB.ER.24H 120 MG PO (09:18)
[2021-02-25] MEDS: amLODIPine BESYLATE 5 MG TABLET 10 MG PO (09:18)
[2021-02-25] MEDS: GABAPENTIN 300 MG CAPSULE 600 MG PO ×3 (09:18→17:25)
[2021-02-25] MEDS: BARICITINIB 2 MG TABLET 4 MG PO (09:18)
[2021-02-25] MEDS: DULoxetine HCL 30 MG CAPSULE.DR PO (09:18)
[2021-02-25] MEDS: guaiFENesin 12 HR 600 MG TABCR PO ×2 (09:18→19:49)
[2021-02-25] MEDS: PANTOPRAZOLE 40 MG TABLET PO ×2 (09:19→17:26)
[2021-02-25] MEDS: ASPIRIN 81 MG ENTERIC TABLET PO (09:20)
[2021-02-25] MEDS: metFORMIN HCL 500 MG TABLET 1000 MG PO ×2 (09:20→17:26)
[2021-02-25] MEDS: EZETIMIBE 10 MG TABLET PO (09:20)
[2021-02-25] MEDS: FERROUS SULFATE 324 MG TABLET PO (09:20)
[2021-02-25] MEDS: FONDAPARINUX SODIUM 2.5 MG/0.5 ML SYRINGE SUB-Q (09:20)
[2021-02-25] MEDS: INSULIN ASPART (*BKC) 100 UNITS/ML 10 UNITS SUB-Q ×3 (09:21→17:34)
--- NOTE | 2021-02-25 09:29 | PM.PNCARD ---
Progress Note: A&P Additional Plan 71-year-old man with: Coronary artery disease with previous anterior wall MD and PCI to the LAD on 2 different occasions. He was hospitalized with COVID pneumonia and in that setting his beta-micki dosage was reduced and then eliminated altogether because of concern regarding second-degree AV block Mobitz type 1 which while concerning was still asymptomatic. He is now sinus rhythm with one-to-one conduction for the most part and on a very small dose of metoprolol. I will empirically advance the dosage back to 25 mg q.12 hours which is still 1/4 of his baseline dosage. Following discharge he does have chronic follow-up of his coronary disease established at the [facility] with Dr. Cuello. With respect to his heart disease he is stable for discharge at this time Alexey Jasso MD [facility] Subjective Date/time seen: Date of service: 02/25/21 09:29 Interval history: Follow-up for second-degree AV block type 1, in the setting of pneumonia due to COVID-19. Also: CAD with an anterior STEMI in January 2019 status post angioplasty of the Left anterior descending, Date of service 02/18/2021: Yesterday I held 1 dose of metoprolol then reduced the dose from 100 mg b.i.d. to: 50 mg b.i.d. Received 1 dose of Lasix yesterday p.o. for edema. Tele shos pt still having episodes of 2nd AV block type 1, HR 50's. Still occ SOB w/ paroxysms of coughing. Will start baricinib due to worsening O2 requirements ; needing a L high-flow nasal oxygen more frequently. Date of service 02/21/2021: Still having episodes type 1 second-degree AV block and bradycardia. He is short of breath no chest pain. No syncope or presyncope Date of service 02/22/2021: Now in sinus tachycardia with beta-micki withdrawal. No chest pain. Breathing is better though. Date of service 02/24/2021: Remains in sinus tachycardia today Date of service 02/25/2021: Patient offers no cardiac symptoms feels fairly well is hoping to be discharged today or tomorrow. Telemetry still shows sinus rhythm/sinus tachycardia. Exam Const: General: no acute distress and uncomfortable; No confusion Orientation/consciousness: No confusion Other: Pleasant older gentleman sitting comfortably on the side of the bed. Alert and oriented. HENMT: General nose exam: no epistaxis Mouth: Yes moist mucous membranes Eyes: EOM: EOMs intact bilaterally Neck: Neck: supple Thyroid: thyroid normal Carotids: no bruits Resp: Auscultation: rales, wheezes and diminished lung sounds Other: Noticeably short of breath Cardio: Rate: regular rate Rhythm: regular rhythm Heart sounds: no murmurs and no rubs Other: distant heart sounds GI: Inspection: non-distended Skin: General skin exam: normal color and no rashes or lesions noted Neuro: General: No confusion Cognition (Neuro): normal cognition Speech: normal speech Motor exam (neuro): Normal motor muscle tone present throughout Extrem: General: edema Other: LE edema better, UE edema present Psych: Mental Status: mental status grossly normal Affect: normal affect Objective Data Vital Signs Vital Signs: Vital Signs - 24 hr 02/24/21 12:00 02/24/21 15:44 02/24/21 16:00 Temperature 36.3 C L Pulse Rate 119 H 107 H 105 H Respiratory Rate 20 Blood Pressure 95/56 L Pulse Oximetry 100 02/24/21 20:00 02/24/21 20:21 02/24/21 20:33 Temperature Pulse Rate 63 114 H 110 H Respiratory Rate 18 Blood Pressure Pulse Oximetry 99 92 95 02/24/21 20:42 02/24/21 22:00 02/25/21 00:00 Temperature 36.4 C L Pulse Rate 110 H 62 63 Respiratory Rate 18 Blood Pressure 124/50 L Pulse Oximetry 99 02/25/21 02:38 02/25/21 04:00 02/25/21 06:00 Temperature 36.6 C Pulse Rate 86 61 66 Respiratory Rate 20 Blood Pressure 114/58 L Pulse Oximetry 95 97 Intake/Output Intake/Output: Intake & Output 02/22/21 02/23/21 02/24/21 02/25/21 23:59 23:59 23:59 23:59 Int
[2021-02-25] MEDS: ALBUTEROL SULFATE (*SP) INHALER 2 PUFF INHALATION ×4 (09:37→19:59)
[2021-02-25] MEDS: METOPROLOL TARTRATE 25 MG TABLET PO ×2 (10:07→19:50)
--- NOTE | 2021-02-25 11:41 | HOMEO2EVAL ---
Evaluation was performed at [facility] Home Oxygen Evaluation RC: Home Oxygen (O2) Evaluation Start: 02/25/21 09:05 Freq: ONCE Status: Active Protocol: RPE Activity Type Activity Date Activity User E-Sign Co-Sign Detail Recorded Client Recorded Date Recorded By Document 02/25/21 10:00 KMV [id number] 02/25/21 11:40 KMV Document 02/25/21 10:10 KMV [id number] 02/25/21 11:40 KMV Document 02/25/21 10:15 KMV [id number] 02/25/21 11:41 KMV 02/25/21 02/25/21 02/25/21 10:00 10:10 10:15 Home O2 Evaluation Test Phase Resting Exercise Resting Oxygen Delivery Room Air Room Air Pulse Oximetry (90-100 %) 91 92 93 Pulse Rate (60-100 beats/min) 108 H 110 H 107 H Activity Tolerance Good Good Good Ambulation Distance (feet) 200 Home Oxygen Evaluation Comments NO HOME O2 NEEDS Treatment Charges O2 Evaluation - Inpatient
[2021-02-25 12:12] LABS: Glucose Point of Care 124 mg/dl (65-105)
--- NOTE | 2021-02-25 13:24 | PM.DS ---
DS: Admitting Diagnosis Discharge Date 02/25/21 Admitting Diagnosis Shortness of breath DS: Discharge Diagnosis Discharge Diagnosis (1) Pneumonia due to 2019 novel coronavirus: Code(s): U07.1 - COVID-19; J12.82 - Pneumonia due to coronavirus disease 2019 Status: Acute Assessment and Plan: Patient was diagnosed with COVID on 02/10 and results were on the chart. Convalescent plasma given 02/13/21. He has completed 5 days of Remdesivir; this was not extended due to his bradycardia. He completed Decadron on 02/21. He was also treated with Baricinib that was added 02/18 for worsening hypoxia. He also was treated with albuterol HFA and Mucinex. D-dimer was greater than 20 but trended down now; CRP also has been trending down. O2 weaned off. He did have a home O2 evaluation and did not require o2 with activity either. (2) Acute respiratory failure with hypoxia: Code(s): J96.01 - Acute respiratory failure with hypoxia Status: Acute Assessment and Plan: Related to above. (3) Elevated d-dimer: Code(s): R79.89 - Other specified abnormal findings of blood chemistry Status: Acute Assessment and Plan: DDimer was significantly elevated. Lillie related to COVID. CTA chest was negative for PE. LE venous doppler negative for DVT but does show superficial thrombosis of the bilateral gastrocnemius veins. Left hand was slightly swollen but LUE doppler negative for DVT but did show superficial thrombosis of the left cephalic vein. Patient had one dark stool and was found to have guaiac positive stools but patient was having epistaxis which could provide a false positive test. Benefits of anticoagulation outweighed the risk so we started Arixtra SQ. Hgb remained stable. We repeated dopplers: Bilateral UE = persistent thrombosis of the left cephalic vein; Bilateral LE = venous thrombosis of the right peroneal and bilateral gastrocnemius veins. Hematology consulted and recommended Eliquis 2.5mg BID at discharge and Care Coord found that this was affordable for the patient. Longwall Shearer Operator wll see in the clinic and may advance to more therapeutic dosing depending on how patient tolerates the Eliquis (4) DVT (deep venous thrombosis): Code(s): I82.409 - Acute embolism and thrombosis of unspecified deep veins of unspecified lower extremity Status: Acute Assessment and Plan: Now with a RLE DVT with thrombosis of the right peroneal vein. Most likely propagation. Hematology consulted and recommended continuing the Arixtra with plans for Eliquis 2.5mg BID at discharge. (5) Heart block: Code(s): I45.9 - Conduction disorder, unspecified Status: Acute Assessment and Plan: Tele showing occasional second-degree AVB type 1. Patient is asymptomatic from this. [place] Slabs Sawyer stated that this is chronic for this patient. Could also be related to that fact the patient was refusing his CPAP (patient denied that he was refusing CPAP). Cardiology following and recommended decreasing metoprolol which was done (100mg Q12hr to 25mg Q12h). He continued to have these findings so metoprolol held. Cardiology felt he could toelrate a low dose metoprolol so 25mg BID resumed. (6) Diabetes: Code(s): E11.9 - Type 2 diabetes mellitus without complications Status: Acute Assessment and Plan: The patient's blood glucose was monitored closely. We had to decrease his insulin regiment and used Lantus and Novolog. Even with the lower regiment, his glucose did dropped to 48 on 02/22. Lantus was decreased again. he was monitored with AccuCheks covering with sliding scale. Hypoglycemia protocol was available as needed. Plan to send home with Lantus and Novolog. (7) Coronary artery disease: Code(s): I25.10 - Atherosclerotic heart disease of [place] coronary artery without angina pectoris Status: Acute Assessment and Plan: History of CAD and left ante
[2021-02-25 17:21] LABS: Glucose Point of Care 100 mg/dl (65-105)
[2021-02-25 22:09] LABS: Glucose Point of Care 62 mg/dl (65-105)
[2021-02-25 22:09] LABS: Glucose Point of Care 60 mg/dl (65-105)
== END 2021-02-25 20:00 | disposition home or self-care (01) | DRG 177 ==
LOC: ANHED 21:21 → ANH3MEDSUR 23:50 → ANHIMU 02-26 12:52
PROVIDERS: Internal Medicine; Admitting Provider Internal Medicine; Emergency Provider Emergency Medicine; Visit Provider Physician Assistant
DX: U07.1 COVID-19 (principal); J12.82 Pneumonia due to coronavirus disease 2019; J96.01 Acute respiratory failure with hypoxia; D61.818 Other pancytopenia; I48.20 Chronic atrial fibrillation, unspecified; I82.612 Acute embolism and thrombosis of superficial veins of left upper extremity; I82.463 Acute embolism and thrombosis of calf muscular vein, bilateral; I44.1 Atrioventricular block, second degree; I25.10 Atherosclerotic heart disease of native coronary artery without angina pectoris; E11.9 Type 2 diabetes mellitus without complications; I10 Essential (primary) hypertension; K74.60 Unspecified cirrhosis of liver; E87.5 Hyperkalemia; R00.1 Bradycardia, unspecified; G47.33 Obstructive sleep apnea (adult) (pediatric); E78.5 Hyperlipidemia, unspecified; I25.2 Old myocardial infarction; Z95.5 Presence of coronary angioplasty implant and graft
CPT/HCPCS: 36415; 36430; 71045; 71275; 80048; 80053; 80069; 80076; 82274; 82533; 82565; 82728; 82948; 83735; 83880; 84100; 84132; 84443; 84450; 84460; 84484; 85025; 85027; 85055; 85380; 85610; 85730; 86140; 86850; 86900; 86901; 93005; 93970; 93971; 94618; 94640; 96374; 97110; 97116; 97161; 97165; 97168; 97530; 97535; 99285; A9270; J0456; J0696; J1100; J1650; J1652; J1815; J1940; J3475; J7050; P9059; Q9967

== ENCOUNTER 2021-08-31 13:05 | Emergency (ER) | payer MEDICARE, OTHER, SELFPAY ==
[2021-08-31] VITALS (12 sets, daily range): BP systolic 102–154; BP diastolic 49–70; PULSE 69–76; RESP 13–21; TEMP 36.4; O2SAT 95–100
--- NOTE | ~2021-08-31 | XR_ITS ---
EXAMINATION: XR chest 1V DATE: 08/31/2021 14:02 INDICATION: Dizziness TECHNIQUE: frontal view of the chest was obtained. COMPARISON: Chest radiograph dated 02/20/21 FINDINGS: Resolution of prior diffuse patchy bilateral lung disease which is likely related to COVID pneumonia. No residual airspace opacities, pulmonary edema, pleural effusion or pneumothorax. The cardiomediast inal silhouette is normal. There are bridging osteophytes at multiple levels in the spine, consistent with diffuse idiopathic skeletal hyperostosis (DISH). IMPRESSION: 1. No acute cardiopulmonary disease. Reviewed, dictated and finalized at location A.
--- NOTE | ~2021-08-31 | CT_ITS ---
EXAMINATION: CT brain wo con INDICATION: Headache COMPARISON: None TECHNIQUE: Standard unenhanced head CT. The dose-length product (DLP) was 605.33 mGy-cm. The mA was a djusted according to patient size. Iterative reconstruction technique was employed. FINDINGS: There is no acute intraparenchymal hemorrhage. No evidence of mass lesion. No evidence of a cute infarction. There is mild periventricular and subcortical hypodensity probably related to small vessel ischemic disease. There is mild prominence of the sulci and ventricles related to cerebral atr ophy. Intracranial calcified cerebral atherosclerosis is noted. There are no extra-axial collections. There is no mass effect or midline shift. Changes in the globes are likely from ocular lens surgery. The visualized sinuses and mastoid air cells are well aerated. IMPRESSION: 1. No acute intracranial abnormality. 2. Age related findings. Reviewed, dictated and finalized at location A.
--- NOTE | 2021-08-31 13:11 | ECG_ITS ---
Measurements Intervals [place] Rate: 73 P: -37 CA: 266 QRS: -57 QRSD: 115 T: 63 QT: 419 QTc: 463 Interpretive Statements SINUS RHYTHM WITH FIRST DEGREE AV BLOCK LEFT ANTERIOR FASCICULAR BLOCK VOLTAGE CRITERIA FOR LVH ABNORMAL ECG Electronically Signed On 08-31-2021 13:42:47 CDT by Hayder Shay D.O.
--- NOTE | 2021-08-31 13:43 | ED.DIZZY ---
HPI - Dizziness General Chief Complaint: Dizziness Stated Complaint: dizzy, lightheaded Time Seen by Provider: 08/31/21 13:34 Source: RN notes reviewed History of Present Illness HPI Narrative: Patient presents emergency department from home for dizziness. Patient states symptoms initially began while he was seen his at the group home this morning approximately 9 AM he states that symptoms progressively worsen and then later this morning when he was bending over to place a double [place] and stood up the dizziness got worse then tried to drive with worsening dizziness and came to the emergency department for evaluation he states that dizziness is described as a room spinning sensation he states is better with sitting and worse with movement he denies any numbness or tingling of the extremities he denies any fevers or chills chest pain shortness of breath or any other symptoms Related Data Home Medications Medication Instructions Recorded Confirmed What's Hot Navigator Gluc Sens 02/13/21 02/13/21 amlodipine 10 mg PO DAILY 02/13/21 02/13/21 aspirin 81 mg PO DAILY 02/13/21 02/13/21 carboxymethylcellulose sodium 1 drp EACH EYE QID PRN 02/13/21 02/13/21 docosahexaenoic acid-epa 2 cap PO BID 02/13/21 02/13/21 duloxetine 30 mg PO DAILY 02/13/21 02/13/21 empagliflozin 25 mg PO DAILY 02/13/21 02/13/21 ezetimibe 10 mg PO DAILY 02/13/21 02/13/21 ferrous sulfate 325 mg PO DAILY 02/13/21 02/13/21 gabapentin 600 mg PO TID 02/13/21 02/13/21 isosorbide mononitrate 120 mg PO DAILY 02/13/21 02/13/21 lisinopril 40 mg PO DAILY 02/13/21 02/13/21 metformin 1,000 mg PO BID 02/13/21 02/13/21 pantoprazole 40 mg PO BID 02/13/21 02/13/21 rosuvastatin 20 mg PO HS 02/13/21 02/13/21 Allergies Allergy/AdvReac Type Severity Reaction Status Date / Time cortisone Allergy Mild Unknown Verified 08/31/21 14:06 Czphucv-LLT-TlJ Reductase AdvReac Intermediate Other Verified 08/31/21 14:06 Inhibitor [Kbdkpis-Fvd-Vkd Reductase Inhibitor] Review of Systems Review of Systems: Gen.: Denies fevers or chills Eyes: Denies eye pain or visual change ENT: Denies congestion Respiratory: Denies shortness of breath or cough CV: Denies chest pain or palpitations GI: Denies abdominal pain nausea, emesis or diarrhea Musculoskeletal: Denies back pain or muscle pain Neuro: See HPI Skin: Denies rash Except as documented, all other systems reviewed and negative [facility] Past Medical History Medical History Coronary artery disease And had stents placed to the Left anterior descending by the [place]. 01/2019 presented w/ anterior STEMI due to abrupt occlusion of the distal LAD stent treated by Dr. Jasso with plain old balloon angioplasty. Obstructive sleep apnea Second degree AV block, Mobitz type I Family History Family History (Updated 02/17/21 @ 14:52 by Maddy Ruiz MD) Other Family history normal Social History Social History Smoking status: Never smoker Alcohol intake: never Substance use: never Gender identity (if verbalized by the patient): Male Spiritual care concerns: No Exam Narrative: APPEARANCE: No acute distress, nontoxic, resting in bed HEENT: Normocephalic, atraumatic, OMM, TMs clear bilaterally EYES: PERRL, EOMI RESPIRATORY: No respiratory distress, clear to auscultation bilaterally with no rhonchi wheezing or rales CARDIOVASCULAR: RRR s murmur ABDOMINAL: Soft, nontender, nondistended MUSCULOSKELETAL: Moves all extremities. No clubbing, cyanosis or edema. NEURO: A and O ?3, following commands, speech normal, no facial droop,muscle strength 5 out of 5 bilateral upper and lower extremities SKIN:: Warm, dry. Normal Color PSYCHIATRIC: Normal affect/mood Course Course Emergency Course: Discussed with patient his pancytopenia states he has a history of pancytopenia is followed by hematology at the [place] Dr. Tab moraes
[2021-08-31 13:46] LABS: Basophils Percent Auto 0.6 % (0.2-1.2); Eosinophils Percent Auto 2.4 % (0-4.4); Hematocrit 32.8 % (42.0-52.0); Hemoglobin 10.6 g/dL (14.0-18.0); Immature Granulocyte Absolute 0.01 K/mm3 (0.00-0.031); Immature Granulocyte Percent A 0.6 % (0-0.5); Lymphocytes Absolute Auto 0.42 K/mm3 (0.9-3.2); Lymphocytes Percent Auto 24.7 % (18.3-44.2); Mean Corpuscular HGB Conc 32.3 g/dl (32-36); Mean Corpuscular Hemoglobin 30.1 pg (26-34); Mean Corpuscular Volume 93.2 fl (80-100); Mean Platelet Volume 12.8 fl (7.4-10.4); Monocytes Absolute Auto 0.2 K/mm3 (0.1-0.6); Monocytes Percent Auto 11.2 % (2.6-8.5); Neutrophils Percent Auto 60.5 % (45.5-73.1); Platelet Count Result 57 k/mm3 (150-375); Red Blood Count 3.52 M/mm3 (4.6-6.20); Red Cell Distribution Width 14.5 % (11.5-14.5)
--- NOTE | 2021-08-31 13:47 | PC.NURSE ---
Pt being taking to CT scan at this time
[2021-08-31 13:55] LABS: INR 1.4; Prothrombin Time 16.5 Seconds (11.1-14.7)
[2021-08-31 13:56] LABS: White Blood Count 1.7 K/mm3 (4.5-10.0)
[2021-08-31 13:56] LABS: Partial Thromboplastin Time 39.9 SECONDS (22.3-36.8)
[2021-08-31 13:57] LABS: Alanine Aminotransferase 39 U/L (4-50); Albumin Level 3.8 g/dL (3.5-5.1); Alkaline Phosphatase 97 U/L (38-126); Anion Gap 7 mmol/L (8-16); Aspartate Amino Transferase 50 U/L (17-59); Bilirubin,Total 0.8 mg/dL (0.2-1.3); Blood Urea Nitrogen 24 mg/dL (9-20); Calcium 8.6 mg/dL (8.4-10.2); Carbon Dioxide 26 mmol/L (22-30); Chloride 104 mmol/L (98-107); Estimated CRCL calculation 53 ml/min; Estimated Glomerular Filt Rate 54; Glucose 194 mg/dL (65-110); Potassium 4.2 mmol/L (3.4-5.0); Sodium 137 mmol/L (137-145)
[2021-08-31] MEDS: MECLIZINE HCL 25 MG TABLET PO (14:12)
[2021-08-31] MEDS: SODIUM CHLORIDE 0.9% IV 1,000 ML 999 ML IV CONT (14:53)
[2021-08-31 15:32] LABS: Troponin I < 0.012 ng/mL (0.000-0.034)
== END 2021-08-31 19:33 | disposition home or self-care (01) ==
PROVIDERS: Emergency Medicine; Emergency Provider Emergency Medicine
DX: R42 Dizziness and giddiness (principal); D61.818 Other pancytopenia; I25.10 Atherosclerotic heart disease of native coronary artery without angina pectoris; Z95.5 Presence of coronary angioplasty implant and graft; I25.2 Old myocardial infarction; G47.33 Obstructive sleep apnea (adult) (pediatric); Z79.84 Long term (current) use of oral hypoglycemic drugs; I44.0 Atrioventricular block, first degree; I44.4 Left anterior fascicular block
CPT/HCPCS: 36415; 70450; 71045; 80053; 84484; 85025; 85055; 85610; 85730; 93005; 96360; 99284; A9270; J7030

== ENCOUNTER 2022-02-13 15:02 | Emergency (ER) | payer MEDICARE, OTHER, SELFPAY ==
[2022-02-13 15:15] VITALS: BP 170/69; PULSE 122; RESP 18; TEMP 37.6; O2SAT 100
[2022-02-13 15:17] VITALS: BP 170/69; PULSE 122; RESP 18; TEMP 37.6; O2SAT 100
--- NOTE | 2022-02-13 15:31 | ED.URI ---
HPI - URI/Sore Throat General Chief Complaint: Upper Respiratory Infection Stated Complaint: Sinus,Sore Throat,SOB Time Seen by Provider: 02/13/22 15:35 Source: patient and RN notes reviewed Mode of arrival: ambulatory Limitations: no limitations History of Present Illness HPI Narrative: 71 male presents concern for 11-day history of sinus congestion, drainage, postnasal drainage, sinus pressure, headache. Reports productive cough. He reports a history of lung damage from COVID-pneumonia last year. He reports his symptoms started to improve and then worsened. He reports has been taking many hzyu-vka-xbxgwoq red without relief of his symptoms. MD elicited complaint: cough, rhinorrhea and nasal congestion Related Data Home Medications Medication Instructions Recorded Confirmed amlodipine 10 mg tablet 10 mg PO DAILY 02/13/21 02/13/21 aspirin 81 mg tablet 81 mg PO DAILY 02/13/21 02/13/21 blood-glucose sensor (Freestyle 02/13/21 02/13/21 Navigator Glucose Sensor device) carboxymethylcellulose sodium 0.5 1 drp EACH EYE QID PRN Dry Eyes 02/13/21 02/13/21 % eye drops docosahexaenoic acid (dha)-epa 2 cap PO BID 02/13/21 02/13/21 capsule duloxetine 30 mg capsule,delayed 30 mg PO DAILY 02/13/21 02/13/21 release empagliflozin 25 mg tablet 25 mg PO DAILY 02/13/21 02/13/21 ezetimibe 10 mg tablet 10 mg PO DAILY 02/13/21 02/13/21 ferrous sulfate 325 mg (65 mg 325 mg PO DAILY 02/13/21 02/13/21 iron) tablet gabapentin 600 mg tablet 600 mg PO TID 02/13/21 02/13/21 isosorbide mononitrate 120 mg 120 mg PO DAILY 02/13/21 02/13/21 tablet,extended release 24 hr lisinopril 40 mg tablet 40 mg PO DAILY 02/13/21 02/13/21 metformin 1,000 mg tablet 1,000 mg PO BID 02/13/21 02/13/21 pantoprazole 40 mg tablet,delayed 40 mg PO BID 02/13/21 02/13/21 release rosuvastatin 20 mg tablet 20 mg PO HS 02/13/21 02/13/21 Allergies Allergy/AdvReac Type Severity Reaction Status Date / Time cortisone Allergy Mild Unknown Verified 08/31/21 14:06 Dkrsvsl-WJO-GaV Reductase AdvReac Intermediate Other Verified 08/31/21 14:06 Inhibitor [Xkhhkcm-Feg-Dva Reductase Inhibitor] Review of Systems Review of Systems: CONSTITUTIONAL: Reports malaise EYES: Denies visual changes, redness, or discharge. ENT: Reports rhinorrhea, congestion, sinus pain. Otalgia and sore throat. CARDIOVASCULAR: Denies chest pain, palpitations, or edema. RESPIRATORY: Reports cough. Denies dyspnea. GASTROINTESTINAL: Denies abdominal pain, nausea, vomiting, diarrhea SKIN: Denies rash or itching. MUSCULOSKELETAL: Reports myalgia. NEUROLOGIC: Denies headache. All systems reviewed & are unremarkable except as noted in HPI and below PMFSH Past Medical History Medical History Coronary artery disease And [facility] presented w/ anterior STEMI due to abrupt occlusion of the distal LAD stent treated by Dr. Jasso with plain old balloon angioplasty. Obstructive sleep apnea Second degree AV block, Mobitz type I Family History Family History (Updated 02/17/21 @ 14:52 by Maddy Ruiz MD) Other Family history normal Social History Social History Smoking status: Never smoker Alcohol intake: never Substance use: never Gender identity (if verbalized by the patient): Male Spiritual care concerns: No Comments At time of signature, agree with nursing past medical, surgical, social and family history. There is no relevant family history pertinent to the presenting complaint Exam Narrative: GENERAL: Nontoxic appearing and in no acute distress. HEAD: Normocephalic EYES: PERRLA, conjunctivae clear ENT: Nares clear, turbinates edematous and erythematous, sinus tenderness. Mucous membranes moist. TM pearly yanez with dull light reflex bilaterally; no tragal tenderness. Oropharynx not eryth
--- NOTE | 2022-02-13 17:31 | PC.NURSE ---
1500-- could not verify any home medications since pt gets them from the [facility], and they are closed today, and pt did not bring a current med list with him.
== END 2022-02-13 15:50 | disposition home or self-care (01) ==
PROVIDERS: Emergency Provider Nurse Practitioner
DX: J32.9 Chronic sinusitis, unspecified (principal); J40 Bronchitis, not specified as acute or chronic; I25.10 Atherosclerotic heart disease of native coronary artery without angina pectoris; Z95.5 Presence of coronary angioplasty implant and graft; G47.33 Obstructive sleep apnea (adult) (pediatric); I44.0 Atrioventricular block, first degree; Z86.16 Personal history of COVID-19
CPT/HCPCS: 99213; G0463

== ENCOUNTER 2022-09-16 18:22 | Inpatient (IN) | payer MEDICARE, OTHER, SELFPAY ==
--- NOTE | ~2022-09-16 | US_ITS ---
EXAMINATION: US paracentesis abd w/image DATE: 09/17/2022 10:38 INDICATION: Ascites. TECHNIQUE: The procedure and its risks, benefits, and alternatives were discussed with the patient. P otential risks discussed included bleeding and infection. The skin was prepped and draped in sterile fashion. 1% lidocaine was used for local anesthesia. Under ultrasound guidance, a 5 Fr catheter with trochar was advanced into the ascites in the left lower quadrant. Fluid was aspirated. The catheter w as removed, and a dressing was applied. There were no immediate complications. FINDINGS: Ultrasound images demonstrate ascites and the catheter within the fluid. IMPRESSION: 1. Successful ultrasound-guided paracentesis yielding 5000 mL of opaque, red fluid. Reviewed, dictated and finalized at location A. IMPRESSION: 1. Successful ultrasound-guided paracentesis yielding 5000 mL of opaque, red f luid.
--- NOTE | ~2022-09-16 | US_ITS ---
US right upper quadrant INDICATION: Limited abdominal pain PROCEDURE: Realtime right upper abdominal ultrasound. COMPARISON: No prior studies for comparison. FINDINGS: The pancreas is normal without focal mass or pancreatic ductal dilation. Liver echotexture is diffusely heterogeneous with nodular surface, consistent with cirrhosis. There is ascites. There is normal directional flow in the portal vein. There are gallstones. There is gallbladder wall thickening. Common bile duct measures 4 mm. No sono graphic Ricks's sign. IMPRESSION: 1: Cirrhosis of the liver with ascites. 2: Cholelithiasis with gallbladder wall thickening. Consider cholecystitis in the appropriate clinica l setting. Reviewed, dictated and finalized at location B. IMPRESSION: 1: Cirrhosis of the liver with ascites. 2: Cholelithiasis with gallbladder wall thickening. Consider cholecystitis in t he appropriate clinical setting.
--- NOTE | ~2022-09-16 | MR_ITS ---
EXAMINATION: MR abdomen wo/w con DATE: 09/17/2022 09:56 INDICATION: Liver mass. TECHNIQUE: Magnetic resonance imaging (MRI) of the abdomen was performed without and with 19 mL [employer] intravenous contrast. COMPARISON: CT abdomen and pelvis 09/16/2022 FINDINGS: There are small pleural effusions. The liver demonstrates surface nodularity, consistent wi th cirrhosis. There is an 8.0 cm mass in the liver centered at the junction of the right and left hep atic lobes with arterial hyperenhancement with washout. There is enhancing tumor thrombus in left por joseph vein. There is a 5.0 cm mass involving segments and VII of the liver with arterial hyperenhanc ement and washout. There are at least 3 other lesions of arterial hyperenhancement in the liver measu ring up to 12 mm. There is severe splenomegaly measuring 23.1 cm. There are gallstones in the gallbla dder, which is normal in size. The pancreas and adrenal glands are normal. There are cysts in the kid neys measuring up to 13 mm on the left. There are no dilated loops of bowel. There is a large volume of ascites. IMPRESSION: 1. LI-RADS category LR-TIV: Definite hepatocellular carcinoma. 2. Cirrhosis of the liver with portal venous hypertension. 3. Large volume of ascites. 4. Small pleural effusions. Reviewed, dictated and finalized at location A.
--- NOTE | ~2022-09-16 | CT_ITS ---
EXAMINATION: CT abdomen pelvis w con DATE: 09/16/2022 20:11 INDICATION: Abdominal pain TECHNIQUE: Computed tomography (CT) of the abdomen and pelvis was performed with 100 mL Omnipaque-350 intravenous contrast. Automated exposure control and iterative reconstruction technique were employe d. The dose-length product was 1361.88 mGy-cm. COMPARISON: None FINDINGS: Emphysema. A few likely mucus impacted bronchi in the medial segment of the right middle lobe with cl uster of several small nodules contiguous with a confluent region of consolidation more peripherally in the medial segment of the right middle lobe which is suspicious for postobstructive pneumonia. Dave cite nodules in the right lower lobe consistent with old granulomatous disease. There is also an inde terminate 7 mm nodule in the right middle lobe. Significant improvement in prior groundglass opacitie s in the visualized lower lungs with prior appearance consistent with pneumonia including COVID pneum onia in this could represent residual chronic lung disease. Heart size is normal. Atherosclerotic cor onary artery calcifications. No pericardial or pleural effusion. Cirrhotic liver with nodular surface contour. There is approximately 5.7 x 4.2 cm hypoenhancing parti ally exophytic mass arising from the posterior margin of the right hepatic lobe which is concerning f or malignancy. There is heterogeneous enhancement with a couple small low-attenuation lesions and sug gestion of additional more subtle hypoenhancing mass measuring approximately 3 cm in segment IVb of t he liver. Several calcified gallstones in dependent aspect of the normal-appearing gallbladder. Splen omegaly measuring 23.4 cm in craniocaudal length and along with some gastroesophageal varices is cons istent with secondary portal venous hypertension. There are a few small pancreatic parenchymal calcifications consistent with sequela of chronic pancre atitis. Bilateral adrenal glands and right kidney are normal. There are few small low-attenuation lef t renal cysts the largest measuring 11 mm. Large amount of ascites throughout the abdomen and pelvis. No bowel obstruction. There are few diverticula along the sigmoid colon without adjacent inflammator y changes suggest diverticulitis. Bladder is normal. There are bridging osteophytes at multiple level s in the spine, consistent with diffuse idiopathic skeletal hyperostosis (DISH). There is calcified a therosclerosis of the aorta and many of the other arteries. IMPRESSION: 1. Likely mucus impacted bronchi and more peripheral lung disease in the medial segment of the right middle lobe which could represent a postobstructive pneumonia. Could not exclude obstructing proximal endobronchial lesion. Could consider bronchoscopy for further evaluation. 2. Cirrhosis with likely secondary large amount of ascites and stigmata of portal venous hypertension including splenomegaly and gastroesophageal varices. 3. A couple masslike hypoenhancing regions in the liver most prominent in the exophytic mass measurin g 5.7 cm in maximal diameter arising from the posterior right hepatic lobe which is concerning for ma lignancy including primary hepatocellular carcinoma. Consider further evaluation with diagnostic thor acentesis and pre and postcontrast MRI. 4. Cholelithiasis. Reviewed, dictated and finalized at location A. IMPRESSION: 1. Likely mucus impacted bronchi and more peripheral lung disease in the medial segment of the right middle lobe which could represent a postobstructive pneum onia. Could not exclude obstructing proximal endobronchial lesion. Could consid er bronchoscopy for further evaluation. 2. Cirrhosis with likely secondary large amount of ascites and stigmata of port al venous hypertension including splenomegaly and gastroesophageal
[2022-09-16 18:26] VITALS: BP 134/59; PULSE 109; RESP 17; TEMP 36.7; O2SAT 100
[2022-09-16 18:45] VITALS: BP 129/74; PULSE 103; RESP 18; O2SAT 100
[2022-09-16 18:54] LABS: Alanine Aminotransferase 50 U/L (6-50); Albumin Level 3.3 g/dL (3.5-5.1); Alkaline Phosphatase 240 U/L (38-126); Anion Gap 4 mmol/L (8-16); Aspartate Amino Transferase 98 U/L (17-59); Bilirubin,Total 2.2 mg/dL (0.2-1.3); Blood Urea Nitrogen 19 mg/dL (9-20); Calcium 9.2 mg/dL (8.4-10.2); Carbon Dioxide 29 mmol/L (22-30); Chloride 99 mmol/L (98-107); Estimated CRCL calculation 68 ml/min; Estimated Glomerular Filt Rate > 60; Glucose 171 mg/dL (65-110); Lipase 202 U/L (23-300); Potassium 4.2 mmol/L (3.4-5.0); Sodium 132 mmol/L (137-145)
[2022-09-16 19:00] VITALS: BP 134/61; PULSE 106; RESP 18; O2SAT 100
[2022-09-16 19:06] LABS: Basophils Percent Auto 0.3 % (0.2-1.2); Eosinophils Absolute Auto 0.1 K/mm3 (0-0.3); Eosinophils Percent Auto 2.3 % (0-4.4); Hematocrit 30.7 % (42.0-52.0); Hemoglobin 9.8 g/dL (14.0-18.0); Immature Granulocyte Absolute 0.01 K/mm3 (0.00-0.031); Immature Granulocyte Percent A 0.3 % (0-0.5); Lymphocytes Absolute Auto 0.94 K/mm3 (0.9-3.2); Lymphocytes Percent Auto 30.5 % (18.3-44.2); Mean Corpuscular HGB Conc 31.9 g/dl (32-36); Mean Corpuscular Hemoglobin 28.9 pg (26-34); Mean Corpuscular Volume 90.6 fl (80-100); Mean Platelet Volume 12.8 fl (7.4-10.4); Monocytes Absolute Auto 0.4 K/mm3 (0.1-0.6); Monocytes Percent Auto 14.3 % (2.6-8.5); Neutrophils Absolute Auto 1.6 K/mm3 (1.3-6.7); Neutrophils Percent Auto 52.3 % (45.5-73.1); Platelet Count Result 104 k/mm3 (150-375); Red Blood Count 3.39 M/mm3 (4.6-6.20); Red Cell Distribution Width 16.9 % (11.5-14.5); White Blood Count 3.1 K/mm3 (4.5-10.0)
--- NOTE | 2022-09-16 19:36 | ED.GENADULT ---
HPI - General Adult General Chief complaint: Abdominal Pain Stated complaint: abdominal pain Time Seen by Provider: 09/16/22 19:08 History of Present Illness HPI narrative: Patient is a 72-year-old gentleman who presents the emergency department with chief complaint of abdominal pain patient reports that for day and a half now has been having pain mostly in his epigastrium area that he reports is an aching-like sensation. The patient states that the pain is worsened whenever he eats or drinks reports that he has had multiple episodes of nausea and vomiting and reports that he has not been able to keep anything down whenever he attempts to drink. Patient does report that he has had a prior appendectomy and reports he still has his gallbladder the patient reports that he had recent surgery back in the end of July on his knee. Patient denies fever Related Data Home Medications Medication Instructions Recorded Confirmed amlodipine 10 mg tablet 10 mg PO DAILY 02/13/21 02/13/21 aspirin 81 mg tablet 81 mg PO DAILY 02/13/21 02/13/21 blood-glucose sensor (Apprion 02/13/21 02/13/21 Navigator Glucose Sensor device) carboxymethylcellulose sodium 0.5 1 drp EACH EYE QID PRN Dry Eyes 02/13/21 02/13/21 % eye drops docosahexaenoic acid (dha)-epa 2 cap PO BID 02/13/21 02/13/21 capsule duloxetine 30 mg capsule,delayed 30 mg PO DAILY 02/13/21 02/13/21 release empagliflozin 25 mg tablet 25 mg PO DAILY 02/13/21 02/13/21 ezetimibe 10 mg tablet 10 mg PO DAILY 02/13/21 02/13/21 ferrous sulfate 325 mg (65 mg 325 mg PO DAILY 02/13/21 02/13/21 iron) tablet gabapentin 600 mg tablet 600 mg PO TID 02/13/21 02/13/21 isosorbide mononitrate 120 mg 120 mg PO DAILY 02/13/21 02/13/21 tablet,extended release 24 hr lisinopril 40 mg tablet 40 mg PO DAILY 02/13/21 02/13/21 metformin 1,000 mg tablet 1,000 mg PO BID 02/13/21 02/13/21 pantoprazole 40 mg tablet,delayed 40 mg PO BID 02/13/21 02/13/21 release rosuvastatin 20 mg tablet 20 mg PO HS 02/13/21 02/13/21 Allergies Allergy/AdvReac Type Severity Reaction Status Date / Time cortisone Allergy Mild Unknown Verified 08/31/21 14:06 Rxbxblt-JPG-CiW Reductase AdvReac Intermediate Other Verified 08/31/21 14:06 Inhibitor [Ksuvldv-Gir-Lng Reductase Inhibitor] Review of Systems Review of Systems: A 10 system review of systems was completed on the patient and is negative except for what is stated in the HPI. Nursing and ancillary documentation was reviewed. [facility] Past Medical History Medical History Coronary artery disease And had stents placed to the Left anterior descending by the [place]. 01/2019 presented w/ anterior STEMI due to abrupt occlusion of the distal LAD stent treated by Dr. Jasso with plain old balloon angioplasty. Obstructive sleep apnea Second degree AV block, Mobitz type I Family History Family History Other Family history normal Social History Social History Smoking status: Never smoker Alcohol intake: never Substance use: never Living arrangements: with family Gender identity (if verbalized by the patient): Male Spiritual care concerns: No Exam Narrative: GENERAL: Well-appearing, well-nourished, and in no acute distress. HEAD: Normocephalic, atraumatic. EYES: PERRLA and EOMI. ENT: Nares clear, no rhinorrhea or epistaxis. Mucous membranes moist. NECK: Supple. CHEST: Clear to auscultation. No respiratory distress. HEART: Regular rate and rhythm. No murmur heard. Normal peripheral pulses. ABDOMEN: Soft, diffusely tender to palpation, nondistended, normal active bowel sounds. EXTREMITIES: Normal range of motion. No edema. SKIN: Warm, dry, no rash. NEURO: No focal deficits. Alert and oriented x3. PSYCH: Normal mood and affect. Course Michelle
[2022-09-16] MEDS: SODIUM CHLORIDE 0.9% IV 1,000 ML 999 ML IV CONT (19:37)
[2022-09-16] MEDS: MORPHINE SULFATE (*CRX) 4 MG/ML INJ IV PUSH ×2 (19:37→20:20)
[2022-09-16] MEDS: ONDANSETRON INJ 4 MG/2 ML VIAL IV PUSH (19:37)
[2022-09-16 20:15] VITALS: BP 134/70; PULSE 102; RESP 18; O2SAT 100
[2022-09-16] MEDS: PANTOPRAZOLE SODIUM IV 40 MG VIAL IV PUSH (20:19)
[2022-09-16] MEDS: PROCHLORPERAZINE EDISYLATE 10 MG/2 ML VIAL IV PUSH (20:29)
[2022-09-16 21:20] VITALS: BP 101/46; PULSE 102; RESP 16; O2SAT 97
[2022-09-16] MEDS: DEXTROSE 5%/0.9% SOD CHL 1,000 ML 100 ML IV CONT (21:27)
[2022-09-16 22:30] VITALS: BP 114/55; PULSE 99; RESP 14; O2SAT 92
--- NOTE | 2022-09-16 22:46 | PC.NURSE ---
pt unable to void said no need to straight cath let him void when able
--- NOTE | 2022-09-16 23:54 | ADMGEN ---
This patient, Bhanu Plaza, was admitted to [facility] Surg Room 326-01. Patient/family oriented to hospital policies and general routines including ID bracelet, bed and alarms, visiting hours, pain management, procedures, bathroom and other care routines, personal items, smoking policy, room service/diet, and visiting hours. Information on how to activate the Rapid Response Team has been discussed. Patient/Family are encouraged to report perceived risks to care and to ask questions if they do not understand what they are told or what they should do.
[2022-09-17 00:24] VITALS: BP 134/93; PULSE 104; RESP 20; TEMP 36.1; O2SAT 100
[2022-09-17 00:45] VITALS: BMI 30.9
--- NOTE | 2022-09-17 03:12 | PM.IMHP ---
H&P: HPI History of Present Illness Date/Time: 09/17/22 03:12 Chief Complaint: abdominal pain Narrative: This is a 72-year-old male with past medical history significant for type diabetes mellitus, peripheral neuropathy, hypertension, coronary artery disease. Patient presents to the emergency room due to abdominal pain, denies any hematemesis, coffee-ground emesis, melena, bright red blood per rectum, denies any weight gain denies abdominal distension denies fevers chills, had episode of nausea and vomiting, No fevers, no rigors, no chills, no cough, no sputum production. Preliminary workup was significant for CT of abdomen and pelvis with ascites. Also liver mass. Patient is been admitted for further evaluation management and treatment. EXAMINATION: CT abdomen pelvis w con DATE: 09/16/2022 20:11 INDICATION: Abdominal pain TECHNIQUE: Computed tomography (CT) of the abdomen and pelvis was performed with 100 mL Omnipaque-350 intravenous contrast. Automated exposure control and iterative reconstruction technique were employed. The dose-length product was 1361.88 mGy-cm. COMPARISON: None FINDINGS: Emphysema. A few likely mucus impacted bronchi in the medial segment of the right middle lobe with cluster of several small nodules contiguous with a confluent region of consolidation more peripherally in the medial segment of the right middle lobe which is suspicious for postobstructive pneumonia. Calcite nodules in the right lower lobe consistent with old granulomatous disease. There is also an indeterminate 7 mm nodule in the right middle lobe. Significant improvement in prior groundglass opacities in the visualized lower lungs with prior appearance consistent with pneumonia including COVID pneumonia in this could represent residual chronic lung disease. Heart size is normal. Atherosclerotic coronary artery calcifications. No pericardial or pleural effusion. Cirrhotic liver with nodular surface contour. There is approximately 5.7 x 4.2 cm hypoenhancing partially exophytic mass arising from the posterior margin of the right hepatic lobe which is concerning for malignancy. There is heterogeneous enhancement with a couple small low-attenuation lesions and suggestion of additional more subtle hypoenhancing mass measuring approximately 3 cm in segment IVb of the liver. Several calcified gallstones in dependent aspect of the normal-appearing gallbladder. Splenomegaly measuring 23.4 cm in craniocaudal length and along with some gastroesophageal varices is consistent with secondary portal venous hypertension. There are a few small pancreatic parenchymal calcifications consistent with sequela of chronic pancreatitis. Bilateral adrenal glands and right kidney are normal. There are few small low-attenuation left renal cysts the largest measuring 11 mm. Large amount of ascites throughout the abdomen and pelvis. No bowel obstruction. There are few diverticula along the sigmoid colon without adjacent inflammatory changes suggest diverticulitis. Bladder is normal. There are bridging osteophytes at multiple levels in the spine, consistent with diffuse idiopathic skeletal hyperostosis (DISH). There is calcified atherosclerosis of the aorta and many of the other arteries. IMPRESSION: 1. Likely mucus impacted bronchi and more peripheral lung disease in the medial segment of the right middle lobe which could represent a postobstructive pneumonia. Could not exclude obstructing proximal endobronchial lesion. Could consider bronchoscopy for further evaluation. 2. Cirrhosis with likely secondary large amount of ascites and stigmata of portal venous hypertension including splenomegaly and gastroesophageal varices. 3. A couple masslike hypoenhancing regions in the liver most prominent in the exophytic mass measuring 5.7 cm in maximal diameter arising from the posterior right hepatic lobe which is concerning for malignancy including primary hepatocellular carcinoma. Consider further
[2022-09-17 06:00] VITALS: BP 102/59; PULSE 93; RESP 20; TEMP 36.2; O2SAT 97
[2022-09-17 08:00] VITALS: PULSE 93; RESP 20; O2SAT 97
[2022-09-17 08:15] LABS: Albumin Level 3.4 g/dL (3.5-5.1)
[2022-09-17] MEDS: ONDANSETRON INJ 4 MG/2 ML VIAL IV PUSH (08:46)
[2022-09-17 08:49] LABS: Appearance Urine Clear (Clear); Bacteria Urine None Seen /hpf; Bilirubin Urine 1+ (Negative); Blood Urine Negative (Negative); Color Urine Dark Yellow (Yellow); Glucose Urine UA Negative (Negative); Ketones Urine Negative (Negative); Leukocyte Esterase Ur Negative LEU/UL (Negative); Nitrate Urine Negative (Negative); Non Pathogenic Casts 0-2; Protein Urine 1+ mg/dL (Negative); RBC Urine 0-2 /hpf (0-2); Squamous Epithelial Cell Urine None seen /hpf (Few); WBC Urine 0-5 /hpf
[2022-09-17 08:51] LABS: Specific Grav Ur 1.067 (1.001-1.035)
[2022-09-17 08:52] LABS: Add Urine Microscopic? YES
[2022-09-17] MEDS: MORPHINE SULFATE (*CRX) 4 MG/ML INJ 2 MG IV PUSH ×2 (10:41→14:02)
--- NOTE | 2022-09-17 11:34 | PM.IMPN ---
Progress Note: A&P Assessment and Plan (1) Acute generalized abdominal pain: Code(s): R10.84 - Generalized abdominal pain Status: Acute Assessment and Plan: admit to regular medical floor paracentesis pending supportive care (2) Abdominal ascites: Qualifiers: Ascites type: other type Qualified Code(s): R18.8 - Other ascites Code(s): R18.8 - Other ascites Status: Acute Assessment and Plan: according to patient this is new for him therapeutic/diagnostic paracentesis await peritoneal fluid analysis doubtful of SBP (3) Coronary artery disease: Code(s): I25.10 - Atherosclerotic heart disease of [place] coronary artery without angina pectoris Status: Acute Assessment and Plan: chest pain-free (4) Cirrhosis: Code(s): K74.60 - Unspecified cirrhosis of liver Status: Acute Assessment and Plan: continue to monitor [facility] (5) Pancytopenia: Code(s): D61.818 - Other pancytopenia Status: Acute Assessment and Plan: likely secondary to chronic illness continue to monitor (6) Liver mass: Code(s): R16.0 - Hepatomegaly, not elsewhere classified Status: Acute Assessment and Plan: patient follows up in the outpatient setting for this states that it is not a new finding Subjective Date/time seen: 09/17/22 11:34 Interval history: no complaints Exam Narrative: Patient is laying in a stretcher Const: General: comfortable, no acute distress, well developed, alert, awake and average body habitus Nutritional Appearance: average body habitus Orientation/consciousness: patient oriented x3 HENMT: Head: normal to inspection, normocephalic and atraumatic Ears: hearing grossly normal bilaterally Face/Nose/Sinus: normal facial exam Face and sinus: normal facial exam Eyes: General: appearance normal, both eyes and all related structures Pupils: Equal, round and reactive pupils present EOM: EOMs intact bilaterally Neck: Neck: full ROM, no lymphadenopathy and no JVD Thyroid: thyroid normal Lymphatic: no lymphadenopathy noted Resp: Effort & Inspection: normal respiratory effort and able to speak in complete sentences Auscultation: clear to auscultation bilaterally Cardio: Jugular venous distension: no JVD Rate: regular rate Rhythm: regular rhythm Heart sounds: S1 normal heart sound present and S2 normal heart sound present GI: Inspection: distended and obesity : General: Yes deferred Skin: Rashes: no rashes Wounds: no wounds Neuro: General: patient oriented x3, CN's II-XI intact bilaterally and Unable to assess gait Cranial nerves: Yes CN's II-XII intact bilaterally and Yes Equal, round and reactive pupils present Cognition (Neuro): normal cognition Speech: normal speech Gait exam (Neuro): Unable to assess gait Motor exam (neuro): 5/5 motor strength present throughout Sensory Exam: No Sensory deficit (Neuro) Extrem: General: normal to inspection, full ROM, no joint enlargement and no pedal edema Objective Data Vital Signs Vital Signs: Vital Signs - 24 hr 09/16/22 18:26 09/16/22 18:45 09/16/22 19:00 Temperature 98.0 F Pulse Rate 109 H 103 H 106 H Respiratory Rate 17 18 18 Blood Pressure 134/59 L 129/74 134/61 Pulse Oximetry 100 100 100 Oxygen Delivery Room Air 09/16/22 20:15 09/16/22 21:20 09/16/22 22:30 Temperature Pulse Rate 102 H 102 H 99 Respiratory Rate 18 16 14 Blood Pressure 134/70 101/46 L 114/55 L Pulse Oximetry 100 97 92 Oxygen Delivery 09/17/22 00:24 09/17/22 00:15 09/17/22 06:00 Temperature 97 F L 97.2 F L Pulse Rate 104 H 93 Respiratory Rate 20 20 Blood Pressure 134/93 H 102/59 L Pulse Oximetry 100 97 Oxygen Delivery Room Air 09/17/22 08:00 Temperature Pulse Rate 93 Respiratory Rate 20 Blood Pressure Pulse Oximetry 97 Oxygen Delivery Room Air Intake/Output Intake/Outpu
[2022-09-17 11:45] VITALS: BP 119/44; PULSE 97; RESP 22; TEMP 36.2; O2SAT 100
--- NOTE | 2022-09-17 12:03 | PC.NURSE ---
Patients glucose monitor on R arm is .
[2022-09-17 12:09] LABS: Glucose Point of Care 170 mg/dl (65-105)
[2022-09-17 12:51] LABS: Appearance Peritoneal Fluid Bloody (Clear); Color Peritoneal Fluid Red (Colorless); Source Peritoneal Fluid Peritoneal Fluid
[2022-09-17 12:52] LABS: Neutrophils Peritoneal Fluid 62 % (0-25)
[2022-09-17 12:53] LABS: Eosinophils Peritoneal Fluid 2 %; Lymphocytes Peritoneal Fluid 18 %; Macrophages Peritoneal Fluid 11 %; Mesothelial Cells Peritoneal Fluid 5 %; Monocytes Peritoneal Fluid 2 %; Nucleated Cells Peritoneal Flu 587 /uL (0-500)
[2022-09-17 14:00] VITALS: BP 110/58; PULSE 92; RESP 20; TEMP 36.1; O2SAT 100
[2022-09-17 16:44] LABS: Glucose Point of Care 208 mg/dl (65-105)
[2022-09-17 21:20] LABS: Glucose Point of Care 226 mg/dl (65-105)
[2022-09-17 21:35] LABS: Glucose Point of Care 229 mg/dl (65-105)
[2022-09-17 22:05] VITALS: BP 104/67; PULSE 96; RESP 20; TEMP 36.4; O2SAT 100
[2022-09-18] MEDS: MORPHINE SULFATE (*CRX) 4 MG/ML INJ 2 MG IV PUSH ×4 (01:15→20:43)
[2022-09-18 07:31] LABS: Glucose Point of Care 163 mg/dl (65-105)
[2022-09-18] MEDS: ACETAMINOPHEN 325 MG TABLET 650 MG PO (08:54)
--- NOTE | 2022-09-18 10:08 | PM.IMPN ---
Progress Note: A&P Assessment and Plan (1) Acute generalized abdominal pain: Code(s): R10.84 - Generalized abdominal pain Status: Acute Assessment and Plan: admit to regular medical floor paracentesis pending supportive care (2) Abdominal ascites: Qualifiers: Ascites type: other type Qualified Code(s): R18.8 - Other ascites Code(s): R18.8 - Other ascites Status: Acute Assessment and Plan: according to patient this is new for him therapeutic/diagnostic paracentesis await peritoneal fluid analysis doubtful of SBP (3) Coronary artery disease: Code(s): I25.10 - Atherosclerotic heart disease of [place] coronary artery without angina pectoris Status: Acute Assessment and Plan: chest pain-free (4) Cirrhosis: Code(s): K74.60 - Unspecified cirrhosis of liver Status: Acute Assessment and Plan: continue to monitor [facility] (5) Pancytopenia: Code(s): D61.818 - Other pancytopenia Status: Acute Assessment and Plan: likely secondary to chronic illness continue to monitor (6) Liver mass: Code(s): R16.0 - Hepatomegaly, not elsewhere classified Status: Acute Assessment and Plan: patient follows up in the outpatient setting for this states that it is not a new finding Subjective Date/time seen: 09/18/22 10:08 Interval history: still having some pain. Exam Narrative: Patient is laying in a stretcher Const: General: comfortable, no acute distress, well developed, alert, awake and average body habitus Nutritional Appearance: average body habitus Orientation/consciousness: patient oriented x3 HENMT: Head: normal to inspection, normocephalic and atraumatic Ears: hearing grossly normal bilaterally Face/Nose/Sinus: normal facial exam Face and sinus: normal facial exam Eyes: General: appearance normal, both eyes and all related structures Pupils: Equal, round and reactive pupils present EOM: EOMs intact bilaterally Neck: Neck: full ROM, no lymphadenopathy and no JVD Thyroid: thyroid normal Lymphatic: no lymphadenopathy noted Resp: Effort & Inspection: normal respiratory effort and able to speak in complete sentences Auscultation: clear to auscultation bilaterally Cardio: Jugular venous distension: no JVD Rate: regular rate Rhythm: regular rhythm Heart sounds: S1 normal heart sound present and S2 normal heart sound present GI: Inspection: distended and obesity : General: Yes deferred Skin: Rashes: no rashes Wounds: no wounds Neuro: General: patient oriented x3, CN's II-XI intact bilaterally and Unable to assess gait Cranial nerves: Yes CN's II-XII intact bilaterally and Yes Equal, round and reactive pupils present Cognition (Neuro): normal cognition Speech: normal speech Gait exam (Neuro): Unable to assess gait Motor exam (neuro): 5/5 motor strength present throughout Sensory Exam: No Sensory deficit (Neuro) Extrem: General: normal to inspection, full ROM, no joint enlargement and no pedal edema Objective Data Vital Signs Vital Signs: Vital Signs - 24 hr 09/17/22 11:45 09/17/22 14:00 09/17/22 20:00 Temperature 97.1 F L 97.0 F L Pulse Rate 97 92 Respiratory Rate 22 H 20 Blood Pressure 119/44 L 110/58 L Pulse Oximetry 100 100 Oxygen Delivery Room Air 09/17/22 22:05 Temperature 97.6 F Pulse Rate 96 Respiratory Rate 20 Blood Pressure 104/67 Pulse Oximetry 100 Oxygen Delivery Intake/Output Intake/Output: Intake & Output 09/15/22 09/16/22 09/17/22 09/18/22 23:59 23:59 23:59 23:59 Intake Total 1000 1664 300 Output Total 5000 Balance 1000 -3336 300 Meds/Results Medications: Active Medications Generic Name Dose Route Start Last Admin Trade Name Freq PRN Reason Stop Dose Admin Acetaminophen 650 mg 09/18/22 08:46 09/18/22 08:54 Acetaminophen 325 Mg Tablet PO 650 mg Q6H PRN
--- NOTE | 2022-09-18 10:57 | PC.NURSE ---
patient does not know what medications he takes. I called daughter Kalani. She says that he takes quite a few medications, but she is out of the state and will not be able to give us a list.
[2022-09-18 11:22] LABS: Glucose Point of Care 219 mg/dl (65-105)
--- NOTE | 2022-09-18 14:21 | PC.NURSE ---
unable to find any number at [facility] that will answer today. project development coordinator also trying her contacts, but has so far been unsuccessful. yeny in [place] at [facility] states that the only medication they have filled recently was ezetimibe. med rec updated with that med. will continue to try to reach someone that knows his current medications.
[2022-09-18 14:29] VITALS: BP 126/59; PULSE 98; RESP 14; TEMP 36.6; O2SAT 100
[2022-09-18 16:24] LABS: Glucose Point of Care 206 mg/dl (65-105)
[2022-09-18] MEDS: INSULIN ASPART (*BKC) 100 UNITS/ML SUB-Q (16:46)
[2022-09-18 20:00] VITALS: PULSE 100; RESP 20; O2SAT 99
[2022-09-18 22:00] VITALS: BP 131/61; PULSE 100; RESP 20; TEMP 36.7; O2SAT 99
[2022-09-18 22:04] LABS: Glucose Point of Care 162 mg/dl (65-105)
[2022-09-19 06:00] VITALS: BP 110/68; PULSE 92; RESP 20; TEMP 36.6; O2SAT 98
[2022-09-19] MEDS: MORPHINE SULFATE (*CRX) 4 MG/ML INJ 2 MG IV PUSH (06:25)
[2022-09-19 07:26] LABS: Glucose Point of Care 140 mg/dl (65-105)
[2022-09-19 10:00] VITALS: O2SAT 98
--- NOTE | 2022-09-19 11:18 | PM.DS ---
DS: Admitting Diagnosis Discharge Date September 19, 2022 Admitting Diagnosis liver mass and ascites DS: Discharge Diagnosis Discharge Diagnosis (1) Acute generalized abdominal pain: Code(s): R10.84 - Generalized abdominal pain Status: Acute Assessment and Plan: admit to regular medical floor paracentesis pending supportive care (2) Abdominal ascites: Qualifiers: Ascites type: other type Qualified Code(s): R18.8 - Other ascites Code(s): R18.8 - Other ascites Status: Acute Assessment and Plan: according to patient this is new for him therapeutic/diagnostic paracentesis await peritoneal fluid analysis doubtful of SBP (3) Coronary artery disease: Code(s): I25.10 - Atherosclerotic heart disease of [place] coronary artery without angina pectoris Status: Acute Assessment and Plan: chest pain-free (4) Cirrhosis: Code(s): K74.60 - Unspecified cirrhosis of liver Status: Acute Assessment and Plan: continue to monitor [facility] (5) Pancytopenia: Code(s): D61.818 - Other pancytopenia Status: Acute Assessment and Plan: likely secondary to chronic illness continue to monitor (6) Liver mass: Code(s): R16.0 - Hepatomegaly, not elsewhere classified Status: Acute Assessment and Plan: patient follows up in the outpatient setting for this states that it is not a new finding DS: Summary Hospital Course Hospital Course: admitted for liver mass and ascites. Ascitic fluid was tapped. No infection was noted. Likely has underlying malignancy. Pathology report pending. He is eating and tolerating a diet. [facility] these results will need to be followed up with as well. Patient is fully aware and has an appoint with his primary care physician to follow up with these results. Time Spent with Patient Time attestation: Total time spent providing and/or coordinating discharge services: Exam Narrative: Patient is laying in a stretcher Const: General: comfortable, no acute distress, well developed, alert, awake and average body habitus Nutritional Appearance: average body habitus Orientation/consciousness: patient oriented x3 HENMT: Head: normal to inspection, normocephalic and atraumatic Ears: hearing grossly normal bilaterally Face/Nose/Sinus: normal facial exam Face and sinus: normal facial exam Eyes: General: appearance normal, both eyes and all related structures Pupils: Equal, round and reactive pupils present EOM: EOMs intact bilaterally Neck: Neck: full ROM, no lymphadenopathy and no JVD Thyroid: thyroid normal Lymphatic: no lymphadenopathy noted Resp: Effort & Inspection: normal respiratory effort and able to speak in complete sentences Auscultation: clear to auscultation bilaterally Cardio: Jugular venous distension: no JVD Rate: regular rate Rhythm: regular rhythm Heart sounds: S1 normal heart sound present and S2 normal heart sound present GI: Inspection: distended and obesity : General: Yes deferred Skin: Rashes: no rashes Wounds: no wounds Neuro: General: patient oriented x3, CN's II-XI intact bilaterally and Unable to assess gait Cranial nerves: Yes CN's II-XII intact bilaterally and Yes Equal, round and reactive pupils present Cognition (Neuro): normal cognition Speech: normal speech Gait exam (Neuro): Unable to assess gait Motor exam (neuro): 5/5 motor strength present throughout Sensory Exam: No Sensory deficit (Neuro) Extrem: General: normal to inspection, full ROM, no joint enlargement and no pedal edema DS: Data Data Completed and Pending Pending studies at discharge: Pending at discharge 09/17/22 07:45 Cytology [PTH] Routine Labs on day of discharge: Labs from last 24 hours 09/19/22 09/18/22 09/18/22 07:16 20:34 16:20 POC Capillary Glucose 140 H 162 H 206
[2022-09-19 11:39] LABS: Glucose Point of Care 176 mg/dl (65-105)
[2022-09-22 15:23] LABS: GGT 268 U/L (3-70)
[2022-09-23 20:03] LABS: Glucose Peritoneal Fluid 96 mg/dL
--- NOTE | 2022-09-29 09:13 | PC.NURSE ---
Anaerobic cx is negative. Called pt with findings.
--- NOTE | 2022-09-29 10:07 | PC.NURSE ---
Called patient with anaerobic findings- no growth.
== END 2022-09-19 13:25 | disposition home or self-care (01) | DRG 948 ==
LOC: ANHED 21:21 → ANH3MEDSUR 23:17
PROVIDERS: Emergency Medicine; Admitting Provider Internal Medicine; Emergency Provider Emergency Medicine; Visit Provider Chiropractor
DX: R18.8 Other ascites (principal); D61.818 Other pancytopenia; R10.84 Generalized abdominal pain; K74.60 Unspecified cirrhosis of liver; R16.0 Hepatomegaly, not elsewhere classified; I25.10 Atherosclerotic heart disease of native coronary artery without angina pectoris; Z95.5 Presence of coronary angioplasty implant and graft; I25.2 Old myocardial infarction; G47.33 Obstructive sleep apnea (adult) (pediatric)
CPT/HCPCS: 36415; 49083; 74177; 74183; 76705; 80053; 81001; 82040; 82105; 82150; 82945; 82948; 82977; 83615; 83690; 84157; 85025; 87070; 87075; 87205; 88104; 88108; 88305; 88342; 89051; 96361; 96374; 96375; 96376; 99285; A9270; A9577; C9113; J0780; J1815; J2270; J2405; J7030; J7042; Q9967

== ENCOUNTER 2022-09-29 18:17 | Observation (INO) | payer MEDICARE, OTHER, SELFPAY ==
--- NOTE | ~2022-09-29 | US_ITS ---
EXAMINATION: US paracentesis abd w/image DATE: 09/30/2022 10:47 INDICATION: Ascites. TECHNIQUE: The procedure and its risks, benefits, and alternatives were discussed with the patient. P otential risks discussed included bleeding and infection. The skin was prepped and draped in sterile fashion. 1% lidocaine was used for local anesthesia. Under ultrasound guidance, a 5 Fr catheter with trochar was advanced into the ascites in the left lower quadrant. Fluid was aspirated. The catheter w as removed, and a dressing was applied. There were no immediate complications. FINDINGS: Ultrasound images demonstrate ascites and the catheter within the fluid. IMPRESSION: 1. Successful ultrasound-guided paracentesis yielding 5000 mL of opaque, red fluid. Reviewed, dictated and finalized at location A. IMPRESSION: 1. Successful ultrasound-guided paracentesis yielding 5000 mL of opaque, red f luid.
[2022-09-29 18:23] VITALS: BP 143/61; PULSE 99; RESP 14; TEMP 36.6; O2SAT 100
[2022-09-29 19:02] LABS: Basophils Percent Auto 0.5 % (0.2-1.2); Eosinophils Absolute Auto 0.1 K/mm3 (0-0.3); Eosinophils Percent Auto 3.3 % (0-4.4); Hematocrit 30.1 % (42.0-52.0); Hemoglobin 9.8 g/dL (14.0-18.0); Lymphocytes Absolute Auto 0.53 K/mm3 (0.9-3.2); Lymphocytes Percent Auto 25.4 % (18.3-44.2); Mean Corpuscular HGB Conc 32.6 g/dl (32-36); Mean Corpuscular Hemoglobin 29.3 pg (26-34); Mean Corpuscular Volume 89.9 fl (80-100); Mean Platelet Volume 11.6 fl (7.4-10.4); Monocytes Absolute Auto 0.2 K/mm3 (0.1-0.6); Neutrophils Absolute Auto 1.3 K/mm3 (1.3-6.7); Neutrophils Percent Auto 59.8 % (45.5-73.1); Platelet Count Result 130 k/mm3 (150-375); Red Blood Count 3.35 M/mm3 (4.6-6.20); Red Cell Distribution Width 17.2 % (11.5-14.5); White Blood Count 2.1 K/mm3 (4.5-10.0)
[2022-09-29 19:12] LABS: Alanine Aminotransferase 57 U/L (6-50); Albumin Level 3.2 g/dL (3.5-5.1); Alkaline Phosphatase 313 U/L (38-126); Anion Gap 4 mmol/L (8-16); Aspartate Amino Transferase 108 U/L (17-59); Bilirubin,Total 1.9 mg/dL (0.2-1.3); Blood Urea Nitrogen 24 mg/dL (9-20); Carbon Dioxide 28 mmol/L (22-30); Chloride 101 mmol/L (98-107); Estimated CRCL calculation 45 ml/min; Estimated Glomerular Filt Rate 46; Glucose 173 mg/dL (65-110); Lipase 233 U/L (23-300); Potassium 4.1 mmol/L (3.4-5.0); Sodium 133 mmol/L (137-145)
[2022-09-29 19:25] VITALS: BP 143/88; PULSE 99; RESP 14; O2SAT 95
--- NOTE | 2022-09-29 19:29 | PC.NURSE ---
assumed care of pt at this time. report from nasra leal
[2022-09-29 20:02] LABS: INR 1.2; Prothrombin Time 16.1 Seconds (11.1-14.7)
[2022-09-29 20:02] LABS: Appearance Urine Clear (Clear); Bilirubin Urine 1+ (Negative); Blood Urine Negative (Negative); Color Urine Dark Yellow (Yellow); Glucose Urine UA Negative (Negative); Ketones Urine Trace mg/dL (Negative); Leukocyte Esterase Ur Negative LEU/UL (Negative); Nitrate Urine Negative (Negative); Protein Urine Negative (Negative)
[2022-09-29 20:12] LABS: Add Urine Microscopic? NO
--- NOTE | 2022-09-29 20:12 | ED.ABDPAIN ---
HPI - Abdominal Pain General Chief Complaint: Abdominal Pain Stated Complaint: abdominal distension Time Seen by Provider: 09/29/22 19:10 Source: patient Mode of arrival: ambulatory Limitations: no limitations History of Present Illness HPI narrative: 72-year-old with a history of CAD, cirrhosis of the liver with recurrent ascites, diabetes here with complaints of abdominal distention and discomfort since this morning. Patient states he went to see his primary doctor for follow-up of his knee started having more pain and discomfort was advised to come to the ER for further work-up. He presently denies any fever. No history of nausea or vomiting. Etiology of his cirrhosis is not known yet MD elicited complaint: abdominal pain Pertinent past history: other (Cirrhosis of the liver) Onset (ago): day(s) Pain Consistency: constant Location: diffuse Severity: moderate Quality: fullness Radiation: none Migration to: no migration Exacerbating factors: nothing Relieving factors: nothing Related Data Home Medications Medication Instructions Recorded Confirmed amlodipine 10 mg tablet 10 mg PO DAILY 02/13/21 02/13/21 aspirin 81 mg tablet 81 mg PO DAILY 02/13/21 02/13/21 blood-glucose sensor (Freestyle 02/13/21 02/13/21 Navigator Glucose Sensor device) carboxymethylcellulose sodium 0.5 1 drp EACH EYE QID PRN Dry Eyes 02/13/21 02/13/21 % eye drops docosahexaenoic acid (dha)-epa 2 cap PO BID 02/13/21 02/13/21 capsule duloxetine 30 mg capsule,delayed 30 mg PO DAILY 02/13/21 02/13/21 release empagliflozin 25 mg tablet 25 mg PO DAILY 02/13/21 02/13/21 ezetimibe 10 mg tablet 10 mg PO DAILY 02/13/21 09/18/22 ferrous sulfate 325 mg (65 mg 325 mg PO DAILY 02/13/21 02/13/21 iron) tablet gabapentin 600 mg tablet 600 mg PO TID 02/13/21 02/13/21 isosorbide mononitrate 120 mg 120 mg PO DAILY 02/13/21 02/13/21 tablet,extended release 24 hr lisinopril 40 mg tablet 40 mg PO DAILY 02/13/21 02/13/21 metformin 1,000 mg tablet 1,000 mg PO BID 02/13/21 02/13/21 pantoprazole 40 mg tablet,delayed 40 mg PO BID 02/13/21 02/13/21 release rosuvastatin 20 mg tablet 20 mg PO HS 02/13/21 02/13/21 Allergies Allergy/AdvReac Type Severity Reaction Status Date / Time cortisone Allergy Mild Unknown Verified 09/29/22 18:19 Xgeezpk-AIB-TmP Reductase AdvReac Intermediate Other Verified 09/29/22 18:19 Inhibitor [Mwqceuq-Pux-Rkf Reductase Inhibitor] Review of Systems Review of Systems: All systems reviewed & are unremarkable except as noted in HPI and below Constitutional: Constitutional: Reports no additional constitutional complaints Eyes: Eyes: Reports no additional eye complaints ENT: Reports system reviewed and no additional complaints, except as documented Cardiovascular: Cardiovascular: Reports no additional cardiovascular complaints Respiratory: Respiratory: Reports no additional respiratory complaints Gastrointestinal: Gastrointestinal: Reports as per HPI Musculoskeletal: Musculoskeletal: Reports no additional musculoskeletal complaints Neurologic: Reports system reviewed and no additional complaints, except as documented Psychiatric: Psychiatric: Reports no additional psychiatric complaints [facility] Past Medical History Medical History Coronary artery disease And had stents placed to the Left anterior descending by the CT. 01/2019 presented w/ anterior STEMI due to abrupt occlusion of the distal LAD stent treated by Dr. Jasso with plain old balloon angioplasty. Obstructive sleep apnea Second degree AV block, Mobitz type I Family History Family History (Updated 09/17/22 @ 00:50 by Pricila Mckeon, PRIMO) Mother Colon cancer Grandparent Colon cancer Sibling Diabetes mellitus Sibling Diabetes mellitus Sibling Diabetes mellitus Other Family history normal Social History Social History (Reviewed 09/16/22 @ 19:40 by Timothy Ambriz
[2022-09-29 21:20] VITALS: BP 125/74; PULSE 88; RESP 14; O2SAT 97
[2022-09-29 21:44] VITALS: BP 140/62; PULSE 94; RESP 16; TEMP 36.1; O2SAT 100
--- NOTE | 2022-09-29 21:49 | ADMGEN ---
This patient, Bhanu Plaza, was admitted to Medical Room 341-01. Patient/family oriented to hospital policies and general routines including ID bracelet, bed and alarms, visiting hours, pain management, procedures, bathroom and other care routines, personal items, smoking policy, room service/diet, and visiting hours. Information on how to activate the Rapid Response Team has been discussed. Patient/Family are encouraged to report perceived risks to care and to ask questions if they do not understand what they are told or what they should do.
--- NOTE | 2022-09-29 22:19 | PM.IMHP ---
H&P: HPI History of Present Illness Date/Time: 09/29/22 22:19 Chief Complaint: Increased abdominal size. Review of Systems Review of Systems: CONSTITUTIONAL: Negative for any fevers, chills, night sweats, tiredness, fatigue, malaise, anorexia or weight loss. CARDIOVASCULAR: Negative for chest pain, palpitations, dizziness, orthopnea or lower extremity edema. RESPIRATORY: Negative for shortness of breath, cough, wheezing, sputum. GENITOURINARY: Negative for frequency, nocturia, dysuria, hematuria. GYNECOLOGIC: Negative for abnormal bleeding. HEMATOLOGIC: Negative for any abnormal bleeding or bruising. MUSCULOSKELETAL: Negative for joint swelling, stiffness or pain. SKIN: Negative for rashes, eruptions, lesions or dryness. NEUROLOGIC: Negative for any focal neurologic complaints. PSYCHIATRIC: Negative for anxiety, panic, depression. [facility] Past Medical History Medical History Coronary artery disease And [facility] presented w/ anterior STEMI due to abrupt occlusion of the distal LAD stent treated by Dr. Jasso with plain old balloon angioplasty. Obstructive sleep apnea Second degree AV block, Mobitz type I Family History Family History Mother Colon cancer Grandparent Colon cancer Sibling Diabetes mellitus Sibling Diabetes mellitus Sibling Diabetes mellitus Other Family history normal Social History Social History Smoking status: Former smoker Tobacco type: cigars Additional smoking assessment comments: Pt smokes a cigar every once in awhile, not frequently Alcohol intake: never Substance use: never Substance use type: does not use Lack of Transportation: No Lack of Food: Never True Current Housing: I Have Housing Concerned About Future Housing: No Difficulty Paying Gas/Electric Bills: No Difficulty Paying for Meds: No Currently Unemployed: No Education: Don't Know Difficulty w/ Childcare or Family Care: No Living arrangements: with family Gender identity (if verbalized by the patient): Male Spiritual care concerns: No Meds Home Medications and Allergies Home Medications Medication Instructions Recorded Confirmed Type amlodipine 10 mg tablet 10 mg PO DAILY 02/13/21 02/13/21 History aspirin 81 mg tablet 81 mg PO DAILY 02/13/21 02/13/21 History blood-glucose sensor (Freestyle 02/13/21 02/13/21 History Navigator Glucose Sensor device) carboxymethylcellulose sodium 0.5 1 drp EACH EYE QID PRN Dry Eyes 02/13/21 02/13/21 History % eye drops docosahexaenoic acid (dha)-epa 2 cap PO BID 02/13/21 02/13/21 History capsule duloxetine 30 mg capsule,delayed 30 mg PO DAILY 02/13/21 02/13/21 History release empagliflozin 25 mg tablet 25 mg PO DAILY 02/13/21 02/13/21 History ezetimibe 10 mg tablet 10 mg PO DAILY 02/13/21 09/29/22 History ferrous sulfate 325 mg (65 mg 325 mg PO DAILY 02/13/21 02/13/21 History iron) tablet gabapentin 600 mg tablet 600 mg PO TID 02/13/21 02/13/21 History isosorbide mononitrate 120 mg 120 mg PO DAILY 02/13/21 02/13/21 History tablet,extended release 24 hr lisinopril 40 mg tablet 40 mg PO DAILY 02/13/21 02/13/21 History metformin 1,000 mg tablet 1,000 mg PO BID 02/13/21 02/13/21 History pantoprazole 40 mg tablet,delayed 40 mg PO BID 02/13/21 02/13/21 History release rosuvastatin 20 mg tablet 20 mg PO HS 02/13/21 02/13/21 History insulin aspart U-100 100 unit/mL 6 unit (0.06 mL) subcut TIDWM #15 02/25/21 Rx (3 mL) subcutaneous pen mL insulin glargine 100 unit/mL (3 10 unit (0.1 mL) subcut HS #15 mL 02/25/21 Rx mL) subcutaneous pen methocarbamol 750 mg tablet 750 mg PO BID PRN Muscle Spasm #0 02/25/21 02/13/21 Rx tabs metoprolol tartrate 25 mg tablet 12.5 mg PO Q12HR #60 tabs 02/25/21 Rx pen n
[2022-09-29 23:35] LABS: Glucose Point of Care 205 mg/dl (65-105)
--- NOTE | 2022-09-30 00:07 | PC.NURSE ---
Patient does not have medication list with him and does not know his medications by name and dose. Medications do not show up in external list. [facility] If unable to obtain list pts daughter can fax a list of home medications to the hospital in the morning. MD notified about delay in medication list being done.
[2022-09-30 00:53] LABS: Eosinophils Percent Auto 2.5 % (0-4.4); Hematocrit 26.2 % (42.0-52.0); Hemoglobin 8.7 g/dL (14.0-18.0); Immature Platelet Fraction Pct 4.3 % (0.9-11.2); Lymphocytes Percent Auto 31.6 % (18.3-44.2); Mean Corpuscular HGB Conc 33.2 g/dl (32-36); Mean Corpuscular Hemoglobin 29.5 pg (26-34); Mean Corpuscular Volume 88.8 fl (80-100); Mean Platelet Volume 10.8 fl (7.4-10.4); Monocytes Absolute Auto 0.2 K/mm3 (0.1-0.6); Monocytes Percent Auto 10.8 % (2.6-8.5); Neutrophils Absolute Auto 0.9 K/mm3 (1.3-6.7); Neutrophils Percent Auto 55.1 % (45.5-73.1); Platelet Count Result 100 k/mm3 (150-375); Red Blood Count 2.95 M/mm3 (4.6-6.20); Red Cell Distribution Width 17.2 % (11.5-14.5)
[2022-09-30 01:04] LABS: Anion Gap 4 mmol/L (8-16); Blood Urea Nitrogen 25 mg/dL (9-20); Calcium 7.8 mg/dL (8.4-10.2); Carbon Dioxide 28 mmol/L (22-30); Chloride 100 mmol/L (98-107); Estimated CRCL calculation 45 ml/min; Estimated Glomerular Filt Rate 46; Glucose 180 mg/dL (65-110); Sodium 132 mmol/L (137-145)
[2022-09-30 01:31] LABS: White Blood Count 1.6 K/mm3 (4.5-10.0)
[2022-09-30 05:29] VITALS: BP 123/104; PULSE 88; RESP 16; TEMP 36.1; O2SAT 95
[2022-09-30 05:30] LABS: Glucose Point of Care 160 mg/dl (65-105)
[2022-09-30 08:00] VITALS: O2SAT 95
[2022-09-30 08:59] VITALS: O2SAT 100
--- NOTE | 2022-09-30 11:51 | PM.IMPN ---
Progress Note: A&P Assessment and Plan (1) Abdominal ascites: Qualifiers: Ascites type: other type Qualified Code(s): R18.8 - Other ascites Code(s): R18.8 - Other ascites Status: Acute Assessment and Plan: Patient carries a diagnosis of liver cirrhosis; he has had recurrent short admissions for therapeutic paracentesis. cytology from his most recent paracentesis is pending as of 09/17/2022. Therapeutic paracentesis for comfort. Plan for paracentesis with albumin support. (2) Coronary artery disease: Code(s): I25.10 - Atherosclerotic heart disease of [place] coronary artery without angina pectoris Status: Acute Assessment and Plan: History of CAD and left anterior descending stents 2019 STEMI treated with balloon angioplasty. he remained stable. We continued aspirin, Imdur and lisinopril. BP recorded at 140/62. CArdioprotective medications were held out of concern for future paracentesis procedure. (3) Second degree AV block, Mobitz type I: Code(s): I44.1 - Atrioventricular block, second degree Status: Acute (4) Hypertension: Code(s): I10 - Essential (primary) hypertension Status: Acute Assessment and Plan: CArdioprotective meds on hold in anticipation for therapeutic paracentesis. (5) Hyperlipidemia: Code(s): E78.5 - Hyperlipidemia, unspecified Status: Acute Assessment and Plan: Resume home statin Plan CODE STATUS: FULL CODE Discharge disposition: Patient is from home. Antibiotic: none. Diet: heart healthy GI prophylaxis: N/A. Estimated LOS 1 day pending therapeutic paracentesis and improvement in abdominal symptoms. Time Spent With Patient Time with patient: 20 - 30 minutes Subjective Date/time seen: 09/30/22 11:51 Interval history: 72-year-old male with history of cirrhosis presenting with increased abdominal girth found to have ascites and status post therapeutic paracentesis 09/30. No overnight events noted. No chest pain or shortness of breath. No nausea, vomiting or diarrhea. No fevers or chills. Review of Systems Review of Systems: 12 point review of systems was assessed and was negative except as noted in the HPI Exam Narrative: General: No acute distress, alert and oriented per baseline HEENT: Atraumatic, normocephalic, mucous membranes moist CV: Regular rate and rhythm, S1, S2 Lungs: Clear to auscultation bilaterally, no rales or crackles noted, no wheezes, good air entry Abdomen: Soft, nontender, nondistended Extremities: Normal to inspection Skin: No rashes noted, no lesions or wounds seen Psych: Euthymic, normal affect Objective Data Vital Signs Vital Signs: Vital Signs - 24 hr 09/29/22 18:23 09/29/22 19:25 09/29/22 21:20 Temperature 97.8 F Pulse Rate 99 99 88 Respiratory Rate 14 14 14 Blood Pressure 143/61 H 143/88 H 125/74 Pulse Oximetry 100 95 97 Oxygen Delivery Room Air 09/29/22 21:44 09/30/22 05:29 09/30/22 08:00 Temperature 96.9 F L 96.9 F L Pulse Rate 94 88 Respiratory Rate 16 16 Blood Pressure 140/62 123/104 H Pulse Oximetry 100 95 95 Oxygen Delivery Room Air 09/30/22 08:59 Temperature Pulse Rate Respiratory Rate Blood Pressure Pulse Oximetry 100 Oxygen Delivery Room Air Intake/Output Intake/Output: Intake & Output 09/27/22 09/28/22 09/29/22 09/30/22 23:59 23:59 23:59 23:59 Output Total 5350 Balance -5350 Meds/Results Medications: Active Medications Generic Name Dose Route Start Last Admin Trade Name Freq PRN Reason Stop Dose Admin Acetaminophen 650 mg 09/29/22 20:17 Acetaminophen 325 Mg Tablet PO Q4H PRN Mild Pain (1-3) or Fever Dextrose 12.5 gm 09/30/22 00:34 Dextrose 50% 25 Gm/50 Ml Syringe IV PUSH PRN PRN Hypoglycemia Protocol Glucagon 1 mg 09/30/22 00:34 Glucagon For Inj 1 Mg Vial IM PRN PRN Hypoglycemia Protocol Glucose 15
[2022-09-30 12:17] LABS: Glucose Point of Care 121 mg/dl (65-105)
--- NOTE | 2022-09-30 13:06 | PM.DS ---
DS: Admitting Diagnosis Discharge Date 09/30/2022 Admitting Diagnosis Abdominal distension DS: Discharge Diagnosis Discharge Diagnosis (1) Abdominal ascites: Qualifiers: Ascites type: other type Qualified Code(s): R18.8 - Other ascites Code(s): R18.8 - Other ascites Status: Inactive Assessment and Plan: Patient carries a diagnosis of liver cirrhosis; he has had recurrent short admissions for therapeutic paracentesis. cytology from his most recent paracentesis is pending as of 09/17/2022. Therapeutic paracentesis for comfort. Plan for paracentesis with albumin support. (2) Coronary artery disease: Code(s): I25.10 - Atherosclerotic heart disease of [place] coronary artery without angina pectoris Status: Acute Assessment and Plan: History of CAD and left anterior descending stents 2019 STEMI treated with balloon angioplasty. he remained stable. We continued aspirin, Imdur and lisinopril. BP recorded at 140/62. CArdioprotective medications were held out of concern for future paracentesis procedure. (3) Second degree AV block, Mobitz type I: Code(s): I44.1 - Atrioventricular block, second degree Status: Acute (4) Hypertension: Code(s): I10 - Essential (primary) hypertension Status: Acute Assessment and Plan: CArdioprotective meds on hold in anticipation for therapeutic paracentesis. (5) Hyperlipidemia: Code(s): E78.5 - Hyperlipidemia, unspecified Status: Acute Assessment and Plan: Resume home statin Plan CODE STATUS: FULL CODE Discharge disposition: Patient is from home. Antibiotic: none. Diet: heart healthy GI prophylaxis: N/A. Estimated LOS 1 day pending therapeutic paracentesis and improvement in abdominal symptoms. DS: Summary Hospital Course Hospital Course: 72-year-old male with history of cirrhosis currently being treated at the [facility] with past medical history significant for diabetes is presenting with increased abdominal distension. Therapeutic paracentesis was performed and all symptoms resolved and patient requested to be discharged home with outpatient follow-up. This was arranged. Please see above and med rec for details. Time Spent with Patient Time attestation: Total time spent providing and/or coordinating discharge services: Exam Narrative: General: No acute distress, alert and oriented per baseline HEENT: Atraumatic, normocephalic, mucous membranes moist CV: Regular rate and rhythm, S1, S2 Lungs: Clear to auscultation bilaterally, no rales or crackles noted, no wheezes, good air entry Abdomen: Soft, nontender, nondistended Extremities: Normal to inspection Skin: No rashes noted, no lesions or wounds seen Psych: Euthymic, normal affect DS: Data Data Completed and Pending Labs on day of discharge: Labs from last 24 hours 09/30/22 09/30/22 09/30/22 12:14 05:14 00:46 WBC 1.6 L* RBC 2.95 L Hgb 8.7 L Hct 26.2 L MCV 88.8 MCH 29.5 MCHC 33.2 RDW 17.2 H Plt Count 100 L MPV 10.8 H Immature Gran % (Auto) 0.0 Neut % (Auto) 55.1 Lymph % (Auto) 31.6 [place] % (Auto) 10.8 H Eos % (Auto) 2.5 Baso % (Auto) 0.0 L Lymph # (Auto) 0.50 L [place] # (Auto) 0.2 Eos # (Auto) 0.0 Baso # (Auto) 0.0 Abs Immat Gran (auto) 0.00 Absolute Neuts (auto) 0.9 L Absolute Nucleated RBC 0.0 Nucleated RBC % 0.0 % Immature Plt Fraction 4.3 PT INR Sodium 132 L Potassium 4.0 Chloride 100 Carbon Dioxide 28 Anion Gap 4 L BUN 25 H Creatinine 1.50 H Estim Creat Clear Calc 45 Estimated GFR 46 L Glucose 180 H POC Capillary Glucose 121 H 160 H Calcium 7.8 L Total Bilirubin AST ALT Alkaline Phosphatase Total Protein Albumin Lipase Urine Color Urine Appearance Urine pH Ur Specific Cook Urine Protein Urine Glucose (UA) Urine Ketones Ur Bloo
== END 2022-09-30 14:08 | disposition home or self-care (01) ==
LOC: ANHED 20:17 → ANH3MED 09-30 13:06
PROVIDERS: Emergency Medicine; Admitting Provider Internal Medicine; Emergency Provider Family Medicine; Visit Provider Student in an Organized Health Care Education/Training Program
DX: R18.8 Other ascites (principal); I25.10 Atherosclerotic heart disease of native coronary artery without angina pectoris; I44.1 Atrioventricular block, second degree; I11.0 Hypertensive heart disease with heart failure; E78.5 Hyperlipidemia, unspecified; Z95.5 Presence of coronary angioplasty implant and graft; G47.33 Obstructive sleep apnea (adult) (pediatric); Z79.82 Long term (current) use of aspirin; Z79.84 Long term (current) use of oral hypoglycemic drugs; Z79.4 Long term (current) use of insulin; Z79.52 Long term (current) use of systemic steroids; Z79.891 Long term (current) use of opiate analgesic; Z79.899 Other long term (current) drug therapy
CPT/HCPCS: 36415; 49083; 80048; 80053; 81003; 82948; 83690; 85025; 85055; 85610; 99285; G0378

== ENCOUNTER 2022-10-18 09:05 | Observation (INO) | payer OTHER, MEDICARE, SELFPAY ==
[2022-10-18] VITALS (23 sets, daily range): BP systolic 140–146; BP diastolic 67–79; PULSE 77–105; RESP 11–31; TEMP 36.1–37.2; O2SAT 96–100; BMI 29.2
--- NOTE | ~2022-10-18 | US_ITS ---
EXAMINATION: US paracentesis abd w/image DATE: 10/18/2022 15:45 INDICATION: Ascites. TECHNIQUE: The procedure and its risks and benefits were discussed with the patient. Potential risks discussed included bleeding and infection. The skin was prepped and draped in sterile fashion. 1% lid ocaine was used for local anesthesia. Under ultrasound guidance, a 5 Fr catheter with trochar was adv anced into the ascites in the left lower quadrant. Fluid was aspirated into vacuum bottles. The miguelina ter was removed, and a dressing was applied. There were no immediate complications. FINDINGS: Ultrasound images demonstrate ascites and the catheter within the fluid. IMPRESSION: 1. Successful ultrasound-guided paracentesis yielding 5000 mL of opaque reddish fluid. Reviewed, dictated and finalized at location A. IMPRESSION: 1. Successful ultrasound-guided paracentesis yielding 5000 mL of opaque reddis h fluid.
--- NOTE | 2022-10-18 09:29 | ED.ABDPAIN ---
HPI - Abdominal Pain General Chief Complaint: Abdominal Pain <Cassidy Romero PA-C - Last Filed: 10/18/22 19:36> Stated Complaint: swollen abd <Cassidy Romero PA-C - Last Filed: 10/18/22 19:36> Time Seen by Provider: 10/18/22 09:18 <Cassidy Romero PA-C - Last Filed: 10/18/22 19:36> History of Present Illness HPI narrative: 72 y/o M with a history of abdominal ascites, cirrhosis, CAD, diabetes reports for evaluation of generalized abdominal distention and discomfort that started 4 days ago. Patient states over the past couple days, his symptoms have drastically worsened, therefore he came to the ED this morning. Reports he was admitted at the beginning of the month for therapeutic paracentesis. He was [facility] by his [facility]. Patient reports he has not set up the appointments yet and they only do paracentesis on , states he cannot wait until then for treatment due to discomfort. He was taken off of lasix due to hypotension and multiple syncopal episodes He denies urinary complaints, fever, chest pain, cough or congestion, vomiting. He does endorse nausea today. Last bowel movement was this morning and normal, no melena or hematochezia. <Cassidy Romero PA-C - Last Filed: 10/18/22 19:36> Related Data Home Medications: Home Medications Medication Instructions Recorded Confirmed aspirin 81 mg tablet 81 mg PO DAILY 02/13/21 10/18/22 blood-glucose sensor (Freestyle 02/13/21 02/13/21 Navigator Glucose Sensor device) carboxymethylcellulose sodium 0.5 1 drp EACH EYE QID PRN Dry Eyes 02/13/21 10/18/22 % eye drops duloxetine 30 mg capsule,delayed 30 mg PO DAILY 02/13/21 10/18/22 release empagliflozin 25 mg tablet 25 mg PO DAILY 02/13/21 10/18/22 ezetimibe 10 mg tablet 10 mg PO DAILY 02/13/21 10/18/22 ferrous sulfate 325 mg (65 mg 325 mg PO DAILY 02/13/21 10/18/22 iron) tablet gabapentin 600 mg tablet 600 mg PO TID 02/13/21 10/18/22 metformin 1,000 mg tablet 1,000 mg PO BID 02/13/21 10/18/22 pantoprazole 40 mg tablet,delayed 40 mg PO BID 02/13/21 10/18/22 release rosuvastatin 20 mg tablet 20 mg PO HS 02/13/21 10/18/22 acetaminophen 500 mg tablet 1,000 mg PO Q8H PRN Pain (Scale 09/30/22 10/18/22 Score 1-3) ergocalciferol (vitamin D2) 50,000 50,000 unit PO 2XW 09/30/22 10/18/22 unit tablet insulin aspart U-100 100 unit/mL 30 unit subcut TIDWM 09/30/22 10/18/22 (3 mL) subcutaneous pen insulin glargine 100 unit/mL (3 30 unit subcut HS 09/30/22 10/18/22 mL) subcutaneous pen <Cassidy Romero PA-C - Last Filed: 10/18/22 19:36> Allergies/Adverse Reactions: Allergies Allergy/AdvReac Type Severity Reaction Status Date / Time cortisone Allergy Mild Itching Verified 10/18/22 16:22 Hdmisvn-PSI-AzU Reductase AdvReac Intermediate Itching Verified 10/18/22 16:22 Inhibitor [Hzhxbgd-Jvp-Bkc Reductase Inhibitor] <Cassidy Romero PA-C - Last Filed: 10/18/22 19:36> Review of Systems Review of Systems: CONSTITUTIONAL: Denies fever, chills EYES: Denies visual changes, redness, or discharge. ENT: Denies rhinorrhea, congestion, sore throat, or otalgia. CARDIOVASCULAR: Denies chest pain, palpitations, or edema. RESPIRATORY: Denies cough GASTROINTESTINAL: See HPI GENITOURINARY: Denies dysuria or hematuria. SKIN: Denies rash or itching. MUSCULOSKELETAL: Denies back pain, joint pain, or myalgia. NEUROLOGIC: Denies headache, numbness, dizziness, or weakness. PSYCHIATRIC: Denies anxiety or depression. <Cassidy Romero PA-C - Last Filed: 10/18/22 19:36> [facility] Past Medical History Medical History: Medical History (Updated 10/18/22 @ 16:11 by Patito Morataya NP) Abdominal ascites Coronary artery disease And [facility] presented w/ anterior STEMI due to abrupt occlusion of the distal LAD stent treated by Dr. Jasso with p
[2022-10-18] MEDS: ONDANSETRON INJ 4 MG/2 ML VIAL IV PUSH (09:36)
[2022-10-18 09:49] LABS: Eosinophils Percent Auto 1.9 % (0-4.4); Hematocrit 32.3 % (42.0-52.0); Immature Granulocyte Absolute 0.01 K/mm3 (0.00-0.031); Immature Granulocyte Percent A 0.5 % (0-0.5); Immature Platelet Fraction Pct 6.9 % (0.9-11.2); Lymphocytes Absolute Auto 0.61 K/mm3 (0.9-3.2); Lymphocytes Percent Auto 28.4 % (18.3-44.2); Mean Corpuscular Hemoglobin 27.8 pg (26-34); Mean Corpuscular Volume 89.7 fl (80-100); Mean Platelet Volume 12.4 fl (7.4-10.4); Monocytes Absolute Auto 0.2 K/mm3 (0.1-0.6); Monocytes Percent Auto 7.9 % (2.6-8.5); Neutrophils Absolute Auto 1.3 K/mm3 (1.3-6.7); Neutrophils Percent Auto 61.3 % (45.5-73.1); Platelet Count Result 88 k/mm3 (150-375); Red Cell Distribution Width 16.7 % (11.5-14.5); White Blood Count 2.2 K/mm3 (4.5-10.0)
[2022-10-18 10:00] LABS: Alanine Aminotransferase 57 U/L (6-50); Albumin Level 3.7 g/dL (3.5-5.1); Alkaline Phosphatase 297 U/L (38-126); Anion Gap 11 mmol/L (8-16); Aspartate Amino Transferase 102 U/L (17-59); Bilirubin,Total 1.7 mg/dL (0.2-1.3); Blood Urea Nitrogen 21 mg/dL (9-20); Calcium 8.9 mg/dL (8.4-10.2); Carbon Dioxide 26 mmol/L (22-30); Chloride 101 mmol/L (98-107); Estimated CRCL calculation 54 ml/min; Estimated Glomerular Filt Rate > 60; Glucose 87 mg/dL (65-110); Lipase 231 U/L (23-300); Potassium 3.7 mmol/L (3.4-5.0); Sodium 138 mmol/L (137-145)
[2022-10-18 10:11] LABS: INR 1.2; Prothrombin Time 15.2 Seconds (11.1-14.7)
[2022-10-18 10:12] LABS: Partial Thromboplastin Time 36.8 SECONDS (22.3-36.8)
[2022-10-18 12:14] LABS: Appearance Urine Clear (Clear); Bacteria Urine None Seen /hpf; Bilirubin Urine 1+ (Negative); Blood Urine Negative (Negative); Color Urine Dark Yellow (Yellow); Glucose Urine UA 3+ mg/dL (Negative); Granular Casts Urine Present /lpf; Hyaline Casts Urine Present /lpf; Ketones Urine Trace mg/dL (Negative); Leukocyte Esterase Ur Negative LEU/UL (Negative); Nitrate Urine Negative (Negative); Protein Urine 1+ mg/dL (Negative); RBC Urine 0-2 /hpf (0-2); Squamous Epithelial Cell Urine None seen /hpf (Few); WBC Urine 0-5 /hpf
[2022-10-18 12:19] LABS: Add Urine Microscopic? YES
--- NOTE | 2022-10-18 12:45 | PM.IMHP ---
H&P: HPI History of Present Illness Date/Time: 10/18/22 12:45 Chief Complaint: Abdominal pain Narrative: This is a 72-year-old male patient who has cirrhosis of the liver. The patient typically goes to the [facility]. the patient has ascites and diabetes as well. The patient stated that he is supposed to go to his hepatic specialist but developed this discomfort 4 days ago. The patient was admitted at the beginning of this month for therapeutic paracentesis. It was advised by his primary care doctor to follow-up with [facility] for regularly scheduled Irene sees is. He reported that he has not yet set up appointments and that the only do paracentesis is on . Patient stated that he cannot wait until . The patient was taken off of his Lasix due to chin and multiple syncopal episodes. His H&H is 10.0 in 32.3. Platelets 88. AST is 102, ALT 57 alkaline phosphatase 297. 1+ urine protein 3+ urine glucose and urine bilirubin 1+. We do have interventional radiologist here today. A paracentesis has been ordered for today. The patient was given Zofran. The patient is being admitted to observation status on the date of service of 10/18/2022. Review of Systems Review of Systems: All systems reviewed & are unremarkable except as noted in HPI and below Constitutional: Constitutional: Reports as per HPI and Reports no additional constitutional complaints Eyes: Eyes: Reports as per HPI and Reports no additional eye complaints ENT: Reports system reviewed and no additional complaints, except as documented and Reports Normal hearing present Cardiovascular: Cardiovascular: Reports no additional cardiovascular complaints Respiratory: Respiratory: Reports no additional respiratory complaints and Reports no additional respiratory complaints Gastrointestinal: Gastrointestinal: Reports as per HPI and Reports no additional gastrointestinal complaints Musculoskeletal: Musculoskeletal: Reports no additional musculoskeletal complaints Integumentary/Breasts: Skin/Breast: Reports system reviewed and no additional complaints, except as docu and Reports as per HPI Neurologic: Reports system reviewed and no additional complaints, except as documented, Reports as per HPI and Reports Normal hearing present Psychiatric: Psychiatric: Reports no additional psychiatric complaints and Reports as per HPI Endocrine: Endocrine: Reports no additional endocrine complaints Hematologic/Lymphatic: Hematologic/Lymphatic: Reports no additional hematologic/lymphatic complaints Allergic/Immunologic: Allergic/Immunologic: Reports no additional allergic/immunologic complaints [facility] Past Medical History Medical History (Updated 10/18/22 @ 16:11 by Patito Morataya NP) Abdominal ascites Coronary artery disease And [facility] presented w/ anterior STEMI due to abrupt occlusion of the distal LAD stent treated by Dr. Jasso with plain old balloon angioplasty. COVID-19 DVT (deep venous thrombosis) Hyperlipidemia Liver mass Obstructive sleep apnea Second degree AV block, Mobitz type I Sleep apnea c pap Surgical History Surgical History (Updated 10/18/22 @ 15:51 by Patito Morataya NP) H/O cystoscopy H/O heart artery stent 3 stents Hx of appendectomy Hx of cataract extraction Family History Family History Mother Colon cancer Grandparent Colon cancer Sibling Diabetes mellitus Sibling Diabetes mellitus Sibling Diabetes mellitus Other Family history normal Social History Social History (Updated 10/18/22 @ 16:05 by Patito Morataya NP) Social History: He lives with daughter, son in law, and grandson. He is and retired. Code status full code Smoking status: Never smoker Tobacco type: cigars Additional smoking assessment comments: Pt smokes a cigar every once in awhile, not frequently Alcohol intake: n
--- NOTE | 2022-10-18 13:26 | PC.NURSE ---
ultrasound contacted. interventional radiologist in another case. pt will be next case done. pt to go to floor first.
--- NOTE | 2022-10-18 15:49 | PC.NURSE ---
Pt came straight up from ER. Pt left for paracentesis at 1440 and returned at 1550
--- NOTE | 2022-10-18 16:04 | ADMGEN ---
This patient, Bhanu Plaza, was admitted to [facility] Surg Room 304-01. Patient/family oriented to hospital policies and general routines including ID bracelet, bed and alarms, visiting hours, pain management, procedures, bathroom and other care routines, personal items, smoking policy, room service/diet, and visiting hours. Information on how to activate the Rapid Response Team has been discussed. Patient/Family are encouraged to report perceived risks to care and to ask questions if they do not understand what they are told or what they should do. Report from Elida in ER.
[2022-10-18 16:17] LABS: Glucose Point of Care 84 mg/dl (65-105)
[2022-10-18] MEDS: GABAPENTIN 300 MG CAPSULE 600 MG PO (21:51)
[2022-10-18] MEDS: PANTOPRAZOLE 40 MG TABLET PO (21:51)
[2022-10-18 21:59] LABS: Glucose Point of Care 116 mg/dl (65-105)
[2022-10-18] MEDS: ACETAMINOPHEN 500 MG TABLET 1000 MG PO (22:57)
[2022-10-19 06:00] VITALS: BP 129/57; PULSE 104; RESP 18; TEMP 35.8; O2SAT 99
[2022-10-19 06:33] LABS: Alanine Aminotransferase 49 U/L (6-50); Albumin Level 3.1 g/dL (3.5-5.1); Alkaline Phosphatase 247 U/L (38-126); Anion Gap 6 mmol/L (8-16); Aspartate Amino Transferase 83 U/L (17-59); Bilirubin,Total 1.6 mg/dL (0.2-1.3); Blood Urea Nitrogen 19 mg/dL (9-20); Calcium 8.3 mg/dL (8.4-10.2); Carbon Dioxide 26 mmol/L (22-30); Chloride 102 mmol/L (98-107); Estimated CRCL calculation 73 ml/min; Estimated Glomerular Filt Rate > 60; Glucose 97 mg/dL (65-110); Magnesium 1.3 mg/dL (1.6-2.3); Potassium 3.6 mmol/L (3.4-5.0); Sodium 134 mmol/L (137-145)
[2022-10-19 06:35] LABS: Lactic Acid Reflex 1.4 mmol/L (0.7-2.0)
[2022-10-19 07:01] LABS: Basophils Percent Auto 0.6 % (0.2-1.2); Eosinophils Percent Auto 1.8 % (0-4.4); Hematocrit 27.9 % (42.0-52.0); Lymphocytes Percent Auto 29.9 % (18.3-44.2); Mean Corpuscular HGB Conc 32.3 g/dl (32-36); Mean Corpuscular Hemoglobin 28.3 pg (26-34); Mean Corpuscular Volume 87.7 fl (80-100); Mean Platelet Volume 12.5 fl (7.4-10.4); Monocytes Absolute Auto 0.2 K/mm3 (0.1-0.6); Neutrophils Absolute Auto 0.9 K/mm3 (1.3-6.7); Neutrophils Percent Auto 55.7 % (45.5-73.1); Platelet Count Result 78 k/mm3 (150-375); Red Blood Count 3.18 M/mm3 (4.6-6.20); Red Cell Distribution Width 16.7 % (11.5-14.5)
[2022-10-19 07:06] LABS: White Blood Count 1.7 K/mm3 (4.5-10.0)
[2022-10-19 07:07] LABS: Anisocytosis 1+ (NORMAL); Hypochromasia 1+ (NORMAL); Platelet Estimate Decreased (Adequate); Poikilocytosis 1+ (NORMAL)
[2022-10-19 07:08] LABS: Acanthocytes 1+ (NORMAL); Ovalocytes 1+ (NORMAL); Schistocytes None Seen (NORMAL)
[2022-10-19 07:58] LABS: Glucose Point of Care 101 mg/dl (65-105)
[2022-10-19] MEDS: EMPAGLIFLOZIN 25 MG TABLET PO (07:59)
[2022-10-19] MEDS: metFORMIN HCL 500 MG TABLET 1000 MG PO (07:59)
[2022-10-19] MEDS: ASPIRIN 81 MG CHEWABLE TABLET PO (07:59)
[2022-10-19] MEDS: FERROUS SULFATE 324 MG TABLET PO (07:59)
[2022-10-19] MEDS: GABAPENTIN 300 MG CAPSULE 600 MG PO ×2 (07:59→12:09)
[2022-10-19] MEDS: EZETIMIBE 10 MG TABLET PO (07:59)
[2022-10-19] MEDS: DULoxetine HCL 30 MG CAPSULE.DR PO (07:59)
[2022-10-19] MEDS: PANTOPRAZOLE 40 MG TABLET PO (08:38)
[2022-10-19] MEDS: MAGNESIUM SULFATE 3GM/D5W100ML 3 GM/100 ML BAG IVPB (08:39)
[2022-10-19 09:53] VITALS: O2SAT 99
[2022-10-19 11:25] LABS: Glucose Point of Care 143 mg/dl (65-105)
--- NOTE | 2022-10-19 11:32 | PM.DS ---
DS: Admitting Diagnosis Discharge Date 10/24/2022 Admitting Diagnosis Abdominal pain DS: Discharge Diagnosis Discharge Diagnosis (1) Abdominal ascites: Qualifiers: Ascites type: other type Qualified Code(s): R18.8 - Other ascites Code(s): R18.8 - Other ascites Status: Acute Assessment and Plan: The patient typically goes to [facility]. the patient was supposed to set up therapeutic paracentesis is but stated that the only do those on . The patient had a paracentesis that yielded 5000 L of fluid. His last 1 was on 09/30/2022 performed here. He also had 1 here on 09/17/2022 I asked the patient if he wanted to see a liver specialist here and he stated that he would go back to the [facility] to see his liver specialist. The patient had been taken off of diuretics because of hypotension and syncopal episodes. (2) Coronary artery disease: Code(s): I25.10 - Atherosclerotic heart disease of [place] coronary artery without angina pectoris Status: Acute Assessment and Plan: The patient has a history of 3 cardiac stents. Continue with metoprolol, rosuvastatin, Zetia, isosorbide (3) Anxiety: Code(s): F41.9 - Anxiety disorder, unspecified Status: Acute Assessment and Plan: Continue with duloxetine (4) Depression: Code(s): F32.A - Depression, unspecified Status: Acute Assessment and Plan: Continue with duloxetine (5) Diabetes: Code(s): E11.9 - Type 2 diabetes mellitus without complications Status: Acute Assessment and Plan: The patient has a continuous glucose monitor. Accu-Cheks are not needed at this time as the patient can continue to use his glucose monitor. Continue with sliding scale insulin. Continue long-acting insulin (6) Hypertension: Code(s): I10 - Essential (primary) hypertension Status: Acute Assessment and Plan: Continue with amlodipine, lisinopril, and metoprolol diffuse still on those home medications. (7) Hyperlipidemia: Code(s): E78.5 - Hyperlipidemia, unspecified Status: Acute Assessment and Plan: Continue Zetia and rosuvastatin (8) DVT (deep venous thrombosis): Code(s): I82.409 - Acute embolism and thrombosis of unspecified deep veins of unspecified lower extremity Status: Acute Assessment and Plan: Continue with home medication. (9) Sleep apnea: Code(s): G47.30 - Sleep apnea, unspecified Status: Acute Assessment and Plan: Continue with same settings as home CPAP (10) Pancytopenia: Code(s): D61.818 - Other pancytopenia Status: Acute Assessment and Plan: Continue to monitor. Patient is at baseline. The patient has cirrhosis of the liver. His platelets were 88. Previously there were 101 30 and have been down to 57 in the past. The patient needs to follow-up with his outpatient hepatology Plan Abdominal pain Narrative: This is a 72-year-old male patient who has cirrhosis of the liver.? The patient typically goes to the [facility]. the patient has ascites and diabetes as well.? The patient stated that he is supposed to go to his hepatic specialist but developed this discomfort 4 days ago.? The patient was admitted at the beginning of this month for therapeutic paracentesis.? It was advised by his primary care doctor to follow-up with [facility] for regularly scheduled Irene sees is.? He reported that he has not yet set up appointments and that the only do paracentesis is on .? Patient stated that he cannot wait until .? The patient was taken off of his Lasix due to chin and multiple syncopal episodes.? His H&H is 10.0 in 32.3.? Platelets 88.? AST is 102, ALT 57 alkaline phosphatase 297.? 1+ urine protein 3+ urine glucose and urine bilirubin 1+.? We do have interventional radiologist here today.? A paracentesis has been ordered for today.? The patient was given Zofran. DS: Summary Hospital Course Hospital Course: P
[2022-10-19 12:56] VITALS: BMI 29.7
== END 2022-10-19 12:55 | disposition home or self-care (01) ==
LOC: ANHED 12:44 → ANH3MEDSUR 10-19 08:00
PROVIDERS: Nurse Practitioner; Admitting Provider Student in an Organized Health Care Education/Training Program; Emergency Provider Physician Assistant; Visit Provider Family Medicine
DX: R18.8 Other ascites (principal); K74.60 Unspecified cirrhosis of liver; I25.10 Atherosclerotic heart disease of native coronary artery without angina pectoris; Z95.5 Presence of coronary angioplasty implant and graft; F41.9 Anxiety disorder, unspecified; F32.A Depression, unspecified; E11.9 Type 2 diabetes mellitus without complications; E78.5 Hyperlipidemia, unspecified; D61.818 Other pancytopenia; R06.82 Tachypnea, not elsewhere classified; R16.0 Hepatomegaly, not elsewhere classified; I44.1 Atrioventricular block, second degree; G47.30 Sleep apnea, unspecified; Z99.89 Dependence on other enabling machines and devices; F17.290 Nicotine dependence, other tobacco product, uncomplicated; Z86.16 Personal history of COVID-19; Z86.718 Personal history of other venous thrombosis and embolism; Z79.82 Long term (current) use of aspirin; Z79.1 Long term (current) use of non-steroidal anti-inflammatories (NSAID); Z79.4 Long term (current) use of insulin; Z79.84 Long term (current) use of oral hypoglycemic drugs; Z79.899 Other long term (current) drug therapy; Z83.3 Family history of diabetes mellitus
CPT/HCPCS: 36415; 49083; 80053; 81001; 82948; 83605; 83690; 83735; 84443; 85025; 85055; 85610; 85730; 96365; 96367; 96374; 96375; 99285; A9270; G0378; J0696; J2405; J3475